=== PATIENT | female | born 1940 | race Caucasian/White ===

== ENCOUNTER → 2017-06-26 | Day surgery (SDC) | payer MEDICARE, OTHER ==
[~2017-06-26] VITALS: Ht 154.9 cm; Wt 55.8 kg
[~2017-06-26] MED LIST: ACETAMINOPHEN 325 MG TAB PO PRN; AMLO1TAB37 PO; AcetaZOLAMIDE 500 MG ER CAP PO ONE; BSS with VANC/TOB/EPI for EYE CASES IR ONE; CYCLOPENTOLATE 2% OPHTH SOLN 2ML BTL OD ONE; FLON1SPR INH; FOLI800T PO; FORT600S SQ; HEALON DUET (HEALON 10MG/ML 0.55ML & HEALON ENDOCOAT 30MG/ML 0.85ML) As Ordered ONE; KETOROLAC 0.5% OPHTH SOLN OD ONE; LIDOCAINE 1% SDV 5 ML VIAL As Ordered ONE; LIDOCAINE 3.5 % 1ML OPHTH TOPICAL GEL OU ONE; LR 1,000 ML IV ONE; MIDAZOLAM INJ 2 MG/2 ML VIAL (J2250) As Ordered ONE; MOXIFLOXACIN IN BSS 0.25MG/0.25ML INTRACAMERAL INJ (OR EYE ONLY)(J2280) As Ordered ONE; OFLOXACIN 0.3 % (OCUFLOX) OPTH SOL 5ML OD ONE; PHENYLEPHRINE 2.5% OPHTH SOL 2ML OD ONE; POVIDONE-IODINE 5% OPHTH PREP SOL 30ML As Ordered ONE; PRIL20TA2 PO; PROPARACAINE 0.5% OPHTH SOL 15ML OD PRN; SYNT100T PO; TRIAMCINOLONE PRES FR 40 MG/ML 1ML(TRIESENCE)(OR EYE ONLY)(J3300 PER 1MG) As Ordered ONE; TRIMETHOBENZAMIDE 300 MG CAP PO PRN; TROPICAMIDE 1% OPHTH SOLN 2ML OD ONE; VITA1CAP40 PO; ZETI10TA30 PO; fentaNYL 100 MCG/2 ML INJECTION (J3010) As Ordered ONE
[2017-06-26 09:40] VITALS: BP 137/69
== END | disposition home or self-care (01) ==
LOC: M SDC 07:35
PROVIDERS: ATTEND Ophthalmology
DX: H25.9 Unspecified age-related cataract (principal); I10 Essential (primary) hypertension; E78.5 Hyperlipidemia, unspecified; E05.90 Thyrotoxicosis, unspecified without thyrotoxic crisis or storm; E21.3 Hyperparathyroidism, unspecified; K44.9 Diaphragmatic hernia without obstruction or gangrene; K21.9 Gastro-esophageal reflux disease without esophagitis; D64.9 Anemia, unspecified; F17.210 Nicotine dependence, cigarettes, uncomplicated; F41.9 Anxiety disorder, unspecified; Z79.899 Other long term (current) drug therapy
CPT/HCPCS: 66984; J2250; J2280; J3010; J3300; V2632

== ENCOUNTER 2017-07-03 08:46 | Day surgery (SDC) | payer MEDICARE, OTHER ==
[~2017-07-03] VITALS: Ht 154.9 cm; Wt 55.8 kg
[~2017-07-03 08:46] MED LIST changes: -AcetaZOLAMIDE 500 MG ER CAP PO ONE; -CYCLOPENTOLATE 2% OPHTH SOLN 2ML BTL OD ONE; +CYCLOPENTOLATE 2% OPHTH SOLN 2ML BTL OS ONE; -HEALON DUET (HEALON 10MG/ML 0.55ML & HEALON ENDOCOAT 30MG/ML 0.85ML) As Ordered ONE; -KETOROLAC 0.5% OPHTH SOLN OD ONE; -LIDOCAINE 1% SDV 5 ML VIAL As Ordered ONE; -LR 1,000 ML IV ONE; -MOXIFLOXACIN IN BSS 0.25MG/0.25ML INTRACAMERAL INJ (OR EYE ONLY)(J2280) As Ordered ONE; -OFLOXACIN 0.3 % (OCUFLOX) OPTH SOL 5ML OD ONE; +OFLOXACIN 0.3 % (OCUFLOX) OPTH SOL 5ML OS ONE; -PHENYLEPHRINE 2.5% OPHTH SOL 2ML OD ONE; +PHENYLEPHRINE 2.5% OPHTH SOL 2ML OS ONE; -POVIDONE-IODINE 5% OPHTH PREP SOL 30ML As Ordered ONE; -PROPARACAINE 0.5% OPHTH SOL 15ML OD PRN; +PROPARACAINE 0.5% OPHTH SOL 15ML OS PRN; -TRIAMCINOLONE PRES FR 40 MG/ML 1ML(TRIESENCE)(OR EYE ONLY)(J3300 PER 1MG) As Ordered ONE; -TRIMETHOBENZAMIDE 300 MG CAP PO PRN; -TROPICAMIDE 1% OPHTH SOLN 2ML OD ONE; +TROPICAMIDE 1% OPHTH SOLN 2ML OS ONE
[2017-07-03] MEDS ORDERED: LR 1,000 ML IV SCH (09:00)
[2017-07-03] MEDS ORDERED: TROPICAMIDE 1% OPHTH SOLN 2ML As Ordered ONE (09:04)
[2017-07-03] MEDS ORDERED: OFLOXACIN 0.3 % (OCUFLOX) OPTH SOL 5ML As Ordered ONE (09:04)
[2017-07-03] MEDS ORDERED: CYCLOPENTOLATE 2% OPHTH SOLN 2ML BTL As Ordered ONE (09:04)
[2017-07-03] MEDS ORDERED: PHENYLEPHRINE 2.5% OPHTH SOL 2ML As Ordered ONE (09:04)
[2017-07-03] MEDS ORDERED: LIDOCAINE 1% SDV 5 ML VIAL As Ordered ONE (09:11)
[2017-07-03] MEDS ORDERED: HEALON DUET (HEALON 10MG/ML 0.55ML & HEALON ENDOCOAT 30MG/ML 0.85ML) As Ordered ONE (09:11)
[2017-07-03] MEDS ORDERED: TRIAMCINOLONE PRES FR 40 MG/ML 1ML(TRIESENCE)(OR EYE ONLY)(J3300 PER 1MG) As Ordered ONE (09:11)
[2017-07-03] MEDS ORDERED: POVIDONE-IODINE 5% OPHTH PREP SOL 30ML As Ordered ONE (09:11)
[2017-07-03] MEDS ORDERED: MOXIFLOXACIN IN BSS 0.25MG/0.25ML INTRACAMERAL INJ (OR EYE ONLY)(J2280) As Ordered ONE (09:11)
[2017-07-03] MEDS ORDERED: TRIMETHOBENZAMIDE 300 MG CAP PO PRN (10:15)
[2017-07-03] MEDS ORDERED: KETOROLAC 0.5% OPHTH SOLN OS ONE (10:15)
[2017-07-03] MEDS ORDERED: AcetaZOLAMIDE 500 MG ER CAP PO ONE (10:15)
[2017-07-03 10:20] VITALS: BP 144/66
== END 2017-07-03 10:38 | disposition home or self-care (01) ==
LOC: M SDC 08:46
PROVIDERS: ATTEND Ophthalmology
DX: H25.9 Unspecified age-related cataract (principal); I10 Essential (primary) hypertension; E78.5 Hyperlipidemia, unspecified; E05.90 Thyrotoxicosis, unspecified without thyrotoxic crisis or storm; F41.9 Anxiety disorder, unspecified; D64.9 Anemia, unspecified; F17.210 Nicotine dependence, cigarettes, uncomplicated; K21.9 Gastro-esophageal reflux disease without esophagitis; K44.9 Diaphragmatic hernia without obstruction or gangrene; J44.9 Chronic obstructive pulmonary disease, unspecified
CPT/HCPCS: 66984; J2250; J2280; J3010; J3300; V2632

== ENCOUNTER 2018-10-14 16:14 | Inpatient (IN) | payer MEDICARE, OTHER ==
[~2018-10-14] VITALS: Ht 152.4 cm; Wt 58.8 kg
[~2018-10-14 16:14] MED LIST changes: -ACETAMINOPHEN 325 MG TAB PO PRN; -BSS with VANC/TOB/EPI for EYE CASES IR ONE; -CYCLOPENTOLATE 2% OPHTH SOLN 2ML BTL OS ONE; -LIDOCAINE 3.5 % 1ML OPHTH TOPICAL GEL OU ONE; -MIDAZOLAM INJ 2 MG/2 ML VIAL (J2250) As Ordered ONE; -OFLOXACIN 0.3 % (OCUFLOX) OPTH SOL 5ML OS ONE; -PHENYLEPHRINE 2.5% OPHTH SOL 2ML OS ONE; -PROPARACAINE 0.5% OPHTH SOL 15ML OS PRN; -TROPICAMIDE 1% OPHTH SOLN 2ML OS ONE; -VITA1CAP40 PO; +VITA50005 PO; -fentaNYL 100 MCG/2 ML INJECTION (J3010) As Ordered ONE
[2018-10-14 16:55] LABS: BASO % 0.1 % (0.0-1.0); HEMATOCRIT 31.9 % (36.0-47.0); HEMOGLOBIN 10.1 g/dl (12.0-15.5); LYMPH # 0.3 10^3/uL (1.5-4.5); LYMPH % 2.7 % (24.0-44.0); MEAN CORPUSCULAR HEMOGLOBIN 28.9 pg (27.0-33.0); MEAN CORPUSCULAR HGB CONC 31.7 g/dl (32.0-36.5); MEAN CORPUSCULAR VOLUME 91.4 fl (80.0-96.0); MONO # 0.8 10^3/uL (0.0-0.8); MONO % 7.1 % (0.0-5.0); NEUTROPHILS # 10.1 10^3/uL (1.8-7.7); PLATELET COUNT, AUTOMATED 265 10^3/uL (150-450); RED BLOOD COUNT 3.49 10^6/uL (4.00-5.40); WHITE BLOOD COUNT 11.3 10^3/uL (4.0-10.0)
[2018-10-14] MEDS: METOPROLOL 5 MG/5 ML VIAL IV SCH ×4 (17:06→17:56)
--- NOTE | 2018-10-14 17:22 | REP ---
Portable chest, 04:28 p.m., single AP view, the patient upright: Comparison is 06/26/2013. There is a large opacity inferiorly in the right hemithorax compatible with a pleural effusion as an interval change. The right upper lobe is clear. The left lung is clear. Right cardiac margin is obscured, cardiac size cannot be assessed. There is scoliosis convex right at the thoracolumbar junction, unchanged. Impression: Large right pleural effusion. Electronically Signed by Victor M Parks MD 10/14/2018 05:14 P
[2018-10-14 17:23] LABS: INFLUENZA A AMPLIFICATION NEGATIVE (NEGATIVE); INFLUENZA B AMPLIFICATION NEGATIVE (NEGATIVE)
[2018-10-14 17:31] LABS: INR 1.21; PROTHROMBIN TIME 15.5 SECONDS (12.1-14.4)
[2018-10-14 17:32] LABS: ALBUMIN 2.7 GM/DL (3.2-5.2); BILIRUBIN,DIRECT 0.6 MG/DL (0.0-0.2); CREATININE FOR GFR 2.69 MG/DL (0.55-1.30); FREE T4 1.2 NG/DL (0.76-1.46); GLOMERULAR FILTRATION RATE 18.2 (>39); MAGNESIUM LEVEL 1.9 MG/DL (1.8-2.4); MB/CK RELATIVE INDEX 5.96 (< OR =4); PHOSPHORUS LEVEL 3.9 MG/DL (2.5-4.9); POTASSIUM SERUM 5.2 MEQ/L (3.5-5.1); THYROID STIMULATING HORMONE 8.44 uIU/ML (0.358-3.740); TOTAL PROTEIN 6.4 GM/DL (6.4-8.2); TROPONIN I 0.02 NG/ML (< 0.10)
[2018-10-14] MEDS ORDERED: NS 500 ML IV ONE (18:00)
[2018-10-14] MEDS ORDERED: ALLO100T PO (18:10)
[2018-10-14] MEDS ORDERED: PROL60SO SC (18:10)
[2018-10-14] MEDS ORDERED: CETI10TA PO (18:10)
[2018-10-14] MEDS ORDERED: AMLO5CAP2 PO (18:10)
[2018-10-14] MEDS ORDERED: SYNT88TA2 PO (18:10)
[2018-10-14] MEDS ORDERED: DIGOXIN INJ 0.5 MG/2 ML AMP (J1160) IV STA (18:18)
[2018-10-14] MEDS: NS 1,000 ML IV SCH (19:17)
[2018-10-14] MEDS ORDERED: MORPHINE 4 MG/ML 1ML VIAL/SYRINGE (J2270) IV PRN (19:30)
--- NOTE | 2018-10-14 20:44 | REP ---
Clinical: Shortness of breath. Technique: Axial noncontrast images from the thoracic inlet to the upper abdomen with coronal and sagittal re-formations. Comparison: None. Findings: Large right pleural effusion along with consolidation/partial collapse to the right lower lobe as well as areas of consolidation and atelectasis involving the right middle lobe and to a lesser extent the right upper lobe. Mild left basilar atelectasis noted as well. A few small scattered areas of subpleural density are also identified within the right upper lobe (image 49) and lingula (image 53). Underlying chronic interstitial changes are noted. Mediastinum demonstrates atherosclerotic changes to the thoracic aorta and coronary arteries without aortic aneurysm. Cardiomegaly is suggested without pericardial effusion. Surrounding musculoskeletal structures demonstrate age-related changes without focal osseous abnormality. Limited upper abdomen demonstrates infiltration through the visualized mesentery and retroperitoneum as well as suspected enlargement to the left adrenal gland measuring approximately 2.2 cm. Impression: 1. Multifocal right-sided infiltrates and large right pleural effusion. Differential diagnosis includes asymmetric CHF/pulmonary edema, multifocal pneumonia and malignancy including bronchogenic carcinoma. 2. Cardiomegaly with atherosclerotic changes to the thoracic aorta and coronary arteries. 3. Infiltration to the visualized upper abdominal mesentery and retroperitoneum as well as possible enlargement to the left adrenal gland poorly evaluated. Electronically Signed by Helder Osborne MD 10/14/2018 08:35 P
--- NOTE | 2018-10-14 21:03 | HPE ---
DATE OF ADMISSION: 10/14/2018 A 78-year-old female with a past medical history of hyperlipidemia, hypertension, chronic active tobacco abuse, who presents to the emergency room with cough with productive yellow sputum for the last 3 days. She has not been eating or drinking well either during this time, and she has some minor pleuritic chest pain on her right side. When she came to the emergency room (ER), she was found to be in new onset atrial fibrillation with rapid ventricular response in the 150s, was given Lopressor 5 mg IV push times two, which brought her blood pressure to systolic 75, and her heart rate only down to 140. Then, 0.5 mg of digoxin was given, which brought her heart rate down to the 120s and her blood pressure now is systolic 100. Patient does not complain of any unintentional weight loss. She claims she quit smoking approximately 3 months ago, but before that, she smoked approximately five cigarettes a day for decades. Upon further history taking, the patient did explain that she had a subjective feeling of aches and chills but no fever, and she has no chest pain or palpitations. Chest x-ray was done in the ER, was found a large right pleural effusion and thus will be admitted for further management. PAST MEDICAL HISTORY: Hypertension. Hyperlipidemia. Hypothyroidism. Gastroesophageal reflux disease (GERD). She is also a chronic active tobacco abuser. ALLERGIES: No known drug allergies. FAMILY HISTORY: Noncontributory. SOCIAL HISTORY: The patient smoked approximately 5 cigarettes a day for many decades, quit approximately 3 months ago. Denies any alcohol or illicit drugs. MEDICATIONS: She takes at home are as follows: - allopurinol 100 mg orally daily - amlodipine/benazepril 5/20 one cap orally daily - cetirizine 10 mg orally at bedtime - mg orally daily - folic acid 800 mcg orally daily - Synthroid 88 mcg orally daily - omeprazole 20 mg orally daily - Prolia 60 mg subcu every 6 months REVIEW OF SYSTEMS: Negative all ten major systems except what is mentioned in the history of the present illness. Vital Signs: Blood pressure is 94/67, heart rate is 125, irregular, respiratory rate 20, temperature is 97.8, oxygen saturation is 98% on 6 liters nasal cannula. Head is atraumatic, normocephalic. Neck supple. No jugular venous distention (JVD). Lungs have no breath sounds noted in the right lung. Minimal breath sounds in the left. S1, S2 audible, No murmurs appreciated. Abdomen: Soft, positive bowel sounds. No pedal edema. Skin: Intact. Neurologic Examination: Patient awake, alert, oriented times three. LABORATORY: WBC 11.3, hemoglobin 10.1, hematocrit 31.9, platelets are 265,000. Sodium 132, potassium 5.2, chloride 103, CO2 14, BUN 72, creatinine 2.69, baseline is 1, glucose 105, lactic acid 2.4, calcium 8, magnesium 1.9, troponin first set us 0.0, lipase 318, TSH is 8.440. Influenza tests, both A and B, are negative. IMPRESSION: 1. Right pleural effusion. 2. Clinical pneumonia. 3. Acute kidney injury. PLAN: The patient is to be admitted to the progressive care unit (PCU). I did speak with Dr. Haq who will be on board for cardiology. Will do an echocardiogram in the morning.128 he said is acceptable at this time. In a few hours, if the patient goes above 120, will give her 0.25 oral digoxin and will also get a second troponin, rule out acute coronary syndrome. At this time, though the patient's DEISY vascular 2 score is 3, at high risk, we are going to hold off on anticoagulation until the patient gets her thoracentesis in the morning. As far as the acute kidney injury (SUZI) is concerned, it is likely secondary to prerenal azotemia. I am going to start the patient on normal saline at 100 mL an hour, and I am going to hold the benazepril. I am going to start the patient on IV Zosyn for her clinical pneumonia. Malignancy cannot be ruled out at this time. Will continue all of her other preadmission medications and follow her care in the PCU.
[2018-10-14 21:05] VITALS: BP 100/72
[2018-10-14] MEDS: PIPERACILLIN/TAZOBACTAM SOD 2.25 GM in D5W MINI-BAG PLUS 50 ML IV SCH (21:46)
[2018-10-15] VITALS (14 sets, daily range): BP systolic 98–128; BP diastolic 50–74
[2018-10-15] MEDS ORDERED: DIGOXIN 0.25 MG TAB PO ONE (00:30)
[2018-10-15] MEDS ORDERED: METOPROLOL TART 25 MG TABLET PO SCH (03:00)
[2018-10-15] MEDS: PIPERACILLIN/TAZOBACTAM SOD 2.25 GM in D5W MINI-BAG PLUS 50 ML IV SCH ×3 (04:54→20:16)
[2018-10-15] MEDS: NS 1,000 ML IV SCH (04:55)
[2018-10-15] MEDS: LEVOTHYROXINE 100MCG TABLET (0.1MG) PO SCH (04:56)
[2018-10-15 05:41] LABS: BASO % 0.2 % (0.0-1.0); EOS % 0.2 % (0.0-3.0); HEMATOCRIT 32.7 % (36.0-47.0); LYMPH # 0.4 10^3/uL (1.5-4.5); LYMPH % 3.4 % (24.0-44.0); MEAN CORPUSCULAR HEMOGLOBIN 28.4 pg (27.0-33.0); MEAN CORPUSCULAR HGB CONC 30.6 g/dl (32.0-36.5); MEAN CORPUSCULAR VOLUME 92.9 fl (80.0-96.0); MONO # 1.1 10^3/uL (0.0-0.8); MONO % 8.3 % (0.0-5.0); NEUTROPHILS # 11.2 10^3/uL (1.8-7.7); NEUTROPHILS % 86.4 % (36.0-66.0); PLATELET COUNT, AUTOMATED 260 10^3/uL (150-450); RED BLOOD COUNT 3.52 10^6/uL (4.00-5.40)
[2018-10-15 05:50] LABS: CALCIUM LEVEL 7.5 MG/DL (8.8-10.2); CREATININE FOR GFR 2.07 MG/DL (0.55-1.30); GLOMERULAR FILTRATION RATE 24.6 (>39); POTASSIUM SERUM 5.1 MEQ/L (3.5-5.1)
[2018-10-15] MEDS ORDERED: DIGOXIN 0.125 MG TAB PO ONE (08:30)
[2018-10-15] MEDS: OMEPRAZOLE 20 MG CAP PO SCH (08:52)
[2018-10-15] MEDS: EZETIMIBE 10 MG TAB (ZETIA) PO SCH (08:52)
[2018-10-15] MEDS ORDERED: amLODIPine 5 MG TAB PO SCH (09:00)
--- NOTE | 2018-10-15 09:05 | CR ---
DATE OF CONSULTATION: 10/15/2018 REFERRING PHYSICIAN: Dr. Calderon INDICATION: Atrial fibrillation, shortness of breath, right pleural effusion. HISTORY OF PRESENT ILLNESS: Mrs. Romero is previously unknown to me. She is a pleasant 78-year-old female who has no past history of cardiac problems. She came to the emergency room yesterday after approximately 3-4 week history of symptoms that started as cough productive of some sputum with also signs of sinusitis and slowly worsening shortness of breath. She also had some minimal chest discomfort on the right side. In the last few days, she also noted some minimal peripheral edema. She did not have any twila anginal symptoms and she did not have any sensation of palpitations. On presentation to the emergency room, she was found to be in atrial fibrillation with rapid ventricular response, she also had new renal failure and large right-sided pleural effusion that was noted on chest x-ray and CT of the chest. She was initially given beta blockers IV, but it led to fairly precipitous drop in her blood pressure and consequently she got IV fluids and digoxin. Throughout the night, her heart rate was mostly tachycardiac. This morning, her heart rate is about 110 to 120 range. At bedside, she tells me she is feeling much better than yesterday, but still very short of breath with minimal activity. Denies any chest pain or sensation of palpitations. Denies any paroxysmal nocturnal dyspnea (PND) and tells me that her dyspnea is not worse when she lays down. PAST MEDICAL HISTORY: 1. Hypertension. 2. Dyslipidemia. 3. Hypothyroidism. 4. Gastroesophageal reflux disease (GERD). SOCIAL HISTORY: The patient is a . She lives with her daughter. She has been a smoker most of her adult life, but has not been smoking since she got sick about a month ago. Very rarely uses any alcohol. FAMILY HISTORY: The patient denies first-degree relatives with coronary artery disease or cardiac problems in general in younger age. ALLERGIES: No allergies. HOME MEDICATIONS: - allopurinol 100 mg a day - amlodipine/benazepril 5/20 once a day - cetirizine 10 mg a day - Zetia 10 mg a day - folic acid 800 mg a day - Synthroid 88 mcg a day - omeprazole 20 mg a day - Prolia every 6 months REVIEW OF SYSTEMS: On the review of systems, she denies any recent nausea or vomiting. She denies any history of bleeding, even though she says that she has hemorrhoids and occasionally had some blood in her stools, but not lately. She denies any significant change in her weight. No night sweats as such. No twila anginal symptoms. No syncope or near-syncope. The rest of review of systems are negative. PHYSICAL EXAMINATION: Mrs. Romero is an elderly female, rather petite. Does not appear to be in any distress at rest Her vital signs reveal blood pressure this morning of 126/72 and heart rate was 124. She is afebrile. Saturation 96% on room air. She is alert, oriented and appropriate. Her jugular venous pulse (JVP) is elevated. I would say only mildly though, not more than about a couple of centimeters above the clavicle. Lungs are relatively clear, completely clear on the left and on the right they are diminished over the bases, but I do not appreciate any wheezing, crackles or rhonchi. Heart exam reveals rather muffled heart sounds. No gallop, murmur or rub is appreciated. She is certainly tachycardiac. Abdomen is soft. I do not appreciate hepatosplenomegaly. No guarding. Bowel sounds are positive. Extremities have about 1+ edema to mid shins bilaterally. Neurologically, she is mostly intact even though she has significant strabismus. LABORATORY-JIMÉNEZ: As of this morning, WBC count 13,000, hemoglobin 10, hematocrit 32 with MCV 93 and platelet count 260,000. In the differential, she has 86% neutrophils, 8% monocytes. Basic metabolic panel: Sodium 136, potassium 5.1, BUN 62, creatinine 2.1 and glucose 92. This actually represents improvement since yesterday when her creatinine was 2.7. Normal liver function tests. Troponin has been negative times two. Albumin is 2.7 and TSH 8.4. Her INR was 1.2. Chest x-ray and CT scan as per history of present illness (HPI). ECG confirms presence of atrial fibrillation with rapid ventricular response, but no decisive ischemic abnormalities. ASSESSMENT/PLAN: Mrs. Romero is a 78-year-old female who presented with approximately 1-month history suggestive of respiratory infection followed by progressive dyspnea. She is found to be in atrial fibrillation with rapid ventricular response (RVR) and has a large right pleural effusion. At this point, the differential diagnosis remains principally between parapneumonic effusion versus congestive heart failure. I do favor the second diagnosis as I would expect her to be a lot sicker if this was truly parapneumonic effusion. We should also consider the possibility of underlying lung cancer, but I think that it is even less likely considering the fairly rapid onset of her symptoms. Nevertheless, I do believe it is appropriate to perform thoracentesis for both therapeutic and diagnostic purposes. As far as the atrial fibrillation is concerned, it probably was triggered by respiratory infection. She is not well rate-controlled, but her blood pressure is little bit better so I think she at this point will tolerate addition of beta blockers. I am going to hold her amlodipine so we can get some space for her blood pressure. She so far received digoxin, but the administered dose so far has been only 0.75 mg, so I am going to give her additional 0.125 mg this morning, but I do not intend to continue the medication afterwards. Will obtain an echocardiogram and after the thoracentesis is performed she needs to be started anticoagulation. Further management depending on her clinical course. I will follow the patient with you. JULI
--- NOTE | 2018-10-15 09:53 | REP ---
Clinical: Acute renal failure. Technique: Real time hamm scale ultrasound examination using curved array transducer. Findings: The kidneys appear atrophic with prominent central sinus fat consistent with chronic medical renal disease. Right kidney measures 9.0 x 4.5 x 4.5 cm with mild hydronephrosis and proximal hydroureter. No obvious nephrolithiasis, cystic or renal mass lesion identified. The left kidney measures 9.1 x 5.1 x 5.5 cm with 1.3 cm simple cortical cyst. No hydronephrosis, nephrolithiasis, or renal mass lesion. A sliver of perinephric fluid is identified and nonspecific. Bladder is collapsed. Incidental right pleural effusion noted. Impression: 1. Chronic medical renal disease. 2. Mild right hydronephrosis. 3. 1.3 cm simple left renal cyst. 4. Incidental right pleural effusion. Electronically Signed by Helder Osborne MD 10/15/2018 09:45 A
--- NOTE | 2018-10-15 10:43 | ECGEPIP ---
Stationary ECG Study [facility] - ED Test Date: 2018-10-14 Pat Name: MAXX SERRATO Department: Room: [place] [address] Gender: F Historical Guide: matty : 1940 Requested By: CLAUDIA Walker Order Number: [id number] Reading MD: Pedro Amaya Measurements Intervals [place] Rate: 159 P: TN: 0 QRS: 60 QRSD: 79 T: 0 QT: 161 QTc: 262 Interpretive Statements ATRIAL FIBRILLATION WITH RAPID VENTRICULAR RESPONSE LOW QRS VOLTAGE NONSPECIFIC ST & T-WAVE ABNORMALITY NO PRIORS FOR COMPARISON Electronically Signed On 10-15-2018 10:43:17 EST by Pedro Amaya
[2018-10-15 12:51] LABS: SOURCE, BODY FLUID PLEURAL
[2018-10-15 12:52] LABS: APPEARANCE, BODY FLUID HAZY (CLEAR); PLEURAL FL COLOR YELLOW (COLORLESS)
[2018-10-15] MEDS: METOPROLOL TART 25 MG TABLET PO SCH ×2 (13:09→17:44)
[2018-10-15 13:11] LABS: LDH, BODY FLUID 169 U/L (NOT ESTABLISHED); SOURCE, BODY FLUID GLUCOSE PLEURAL; SOURCE, BODY FLUID LDH PLEURAL; SOURCE, BODY FLUID TOT PROTEIN PLEURAL
--- NOTE | 2018-10-15 13:23 | IPN ---
DATE: 10/15/2018 Alyx was admitted to the hospitalist service. She presented with atrial fibrillation and right pleural effusion. She came to the emergency room with 3-4 weeks of increasing shortness of breath, sputum production, and lower extremity edema. In the emergency room, she was found to have atrial fibrillation with rapid ventricular response (RVR), acute renal failure, right pleural effusion. She became hypertensive with beta-marvin therapy in the emergency room. Clinically she feels better, less short of breath. Denies palpitations. PAST MEDICAL HISTORY: Hypertension. Hyperlipidemia. Hypothyroidism. Smoking. Gastroesophageal reflux disease (GERD). She also has osteoporosis. PHYSICAL EXAMINATION: 128/62, pulse 120, respiratory rate 18, 96% oxygen saturation. General appearance: Chronically ill appearing, looks older than stated age. HEENT unremarkable. No jugular venous distention (JVD). Heart irregular rate and rhythm, tachycardic at 120. Abdomen is soft, nontender, no masses. Trace peripheral edema. Decreased breath sounds on the right base compared to the left. LABS: White count 13, hemoglobin 10, platelets 260, sodium 136, potassium 5.1, BUN 62, creatinine 2.0, glucose 90. Flu screen was negative. INR was 1.2. Renal ultrasound showed chronic medical renal disease. Mild right hydronephrosis. 1.3 cm simple cyst left kidney. IMPRESSION: 1. Atrial fibrillation with rapid ventricular response. She did not tolerate beta-marvin therapy in the emergency room, she became bradycardic with this. Dr. Haq from cardiology has seen here and intends to manage her with digoxin. Echocardiogram has been ordered. Plan is to start anticoagulation now that her thoracentesis has occurred. Will begin Eliquis 5 mg twice a day, age less than 80 and weight greater than 60 kg. 2. Pleural effusion status post thoracentesis. Appropriate studies have been ordered. 3. Hypothyroidism. TSH was mildly elevated. I am not changing the dose of her medicine. This is best done in the outpatient setting and TSH could be mildly elevated related to her current respiratory illness. 4. Multifocal right sided infiltrates. Blood cultures are pending. Pleural fluid studies are pending. She is on Zosyn, which we will continue. 5. Hyperlipidemia. She is not on a statin. She does not having any allergy and I would assume she would be on a statin rather than Zetia unless she had a good reason not to be. Will defer this decision to her outpatient provider who has her outpatient records and better familiar with why she is not currently on statin therapy.
--- NOTE | 2018-10-15 13:25 | REP ---
CHEST, TWO VIEWS: Two views of the chest are performed and compared to prior portable view of the chest 10/14/2018. There is a decreased amount of right pleural fluid status post right thoracentesis. There is mild residual pleural fluid on the right with mild adjacent right lower lobe patchy opacity. Heart appears slightly enlarged. There is some calcification of the thoracic aorta. The mediastinal silhouette is unchanged. There are degenerative changes of the spine. IMPRESSION: Status post right thoracentesis with no pneumothorax. Mild residual right pleural fluid and basilar patchy opacities. Electronically Signed by Victor M Lane MD 10/16/2018 10:42 A
[2018-10-15] MEDS: APIXABAN 5 MG TAB (ELIQUIS) PO SCH ×2 (13:48→20:16)
[2018-10-15] MEDS: SLF 3 ML SYR IV SCH ×2 (13:48→20:17)
--- NOTE | 2018-10-15 17:18 | REP ---
Clinical: Rule out pneumothorax. Technique: PA and lateral. Comparison: 10/15/2018 at 12:36 pm. Findings: Right lower lobe infiltrate. Small residual right pleural fluid cannot be excluded. No pneumothorax. Mediastinum and cardiac silhouette are within normal limits and stable. Left hemithorax appears relatively clear. Skeletal structures intact. Impression: Right lower lobe infiltrate. No obvious pneumothorax. Electronically Signed by Helder Osborne MD 10/15/2018 05:10 P
[2018-10-15] MEDS ORDERED: SODIUM CHLORIDE 0.9% 1000ML IV ONE (18:15)
[2018-10-15] MEDS ORDERED: AMIODARONE HCL 150 MG in APPROPRIATE DILUENT 1 EA IV STA (21:26)
[2018-10-15] MEDS ORDERED: METOPROLOL TART 25 MG TABLET PO ONE (21:30)
--- NOTE | 2018-10-15 22:35 | ECHO ---
DATE OF PROCEDURE: 10/15/2018 REFERRING PHYSICIAN: Lesia Ly MD PATIENT LOCATION: Room 3213 REASON FOR ECHOCARDIOGRAM: Atrial fibrillation. 2D MEASUREMENTS: IVS: 0.74 cm LV: 4.1 cm LVPW: 0.791 cm LA: 3.1 cm Aorta: 2.8 cm IVC: 2.0 cm DOPPLER MEASUREMENTS: Peak velocity across the aortic valve: 1.1 m/s Peak velocity across the LVOT: 0.74 m/s Mitral E: 0.81 Maximum tricuspid valve velocity: 2.4 m/s 2D COMMENTS: 1. Technically limited study due to poor acoustic window. 2. Normal left ventricular size and wall thickness, and a low normal global left ventricular systolic function. The estimated global left ventricular systolic ejection fraction is 45 to 50%. 2. Normal left atrium. The right atrium and the right ventricle appeared to be normal in limited views. 3. Normal aortic root. 4. Trace pericardial effusion noted, no evidence of cardiac tamponade. 5. Minimally calcified aortic valve with normal leaflet excursion. Mildly calcified mitral annulus with normal anterior mitral valve leaflet motion. Normal tricuspid valve. The pulmonic valve and proximal pulmonary artery branches were not well visualized. 6. The inferior vena cava was mildly enlarged, central venous pressure might be elevated. DOPPLER: It detects mild mitral regurgitation, mild tricuspid regurgitation. The calculated pulmonary artery systolic pressure varies between 30 to 40 mmHg. Assessment of the left ventricular diastolic function was limited in view of the underlying atrial fibrillation. IMPRESSION: 1. Probably mildly depressed global left ventricular systolic function with diffuse global hypokinesis. 2. Aortic valve sclerosis without stenosis or aortic regurgitation. 3. Mitral annulus calcification with mild mitral regurgitation. 4. Mild tricuspid regurgitation with probably mild pulmonary hypertension. 5. Trace pericardial effusion. 6. Patient during the test was in atrial fibrillation at a rate up to 150 beats per minute at times. 7. I would recommend to reassess patient left ventricular ejection fraction (LVEF) at one point, once the ventricular rate is under control. [facility]
[2018-10-16] MEDS: PIPERACILLIN/TAZOBACTAM SOD 2.25 GM in D5W MINI-BAG PLUS 50 ML IV SCH ×3 (03:42→20:12)
[2018-10-16] MEDS: METOPROLOL TART 25 MG TABLET PO SCH ×6 (03:42→23:50)
[2018-10-16 04:00] VITALS: BP 102/59
[2018-10-16 05:07] LABS: BASO % 0.1 % (0.0-1.0); EOS # 0.1 10^3/uL (0.0-0.50); EOS % 0.7 % (0.0-3.0); HEMATOCRIT 32.7 % (36.0-47.0); HEMOGLOBIN 10.2 g/dl (12.0-15.5); LYMPH # 0.4 10^3/uL (1.5-4.5); LYMPH % 4.2 % (24.0-44.0); MEAN CORPUSCULAR HEMOGLOBIN 28.6 pg (27.0-33.0); MEAN CORPUSCULAR HGB CONC 31.2 g/dl (32.0-36.5); MEAN CORPUSCULAR VOLUME 91.6 fl (80.0-96.0); MONO # 0.8 10^3/uL (0.0-0.8); MONO % 7.9 % (0.0-5.0); NEUTROPHILS # 9.1 10^3/uL (1.8-7.7); NEUTROPHILS % 86.3 % (36.0-66.0); PLATELET COUNT, AUTOMATED 253 10^3/uL (150-450); RED BLOOD COUNT 3.57 10^6/uL (4.00-5.40); WHITE BLOOD COUNT 10.5 10^3/uL (4.0-10.0)
[2018-10-16 05:27] LABS: CALCIUM LEVEL 7.3 MG/DL (8.8-10.2); CREATININE FOR GFR 1.5 MG/DL (0.55-1.30); GLOMERULAR FILTRATION RATE 35.7 (>39); POTASSIUM SERUM 4.7 MEQ/L (3.5-5.1)
[2018-10-16] MEDS: SLF 3 ML SYR IV SCH ×3 (06:00→22:08)
[2018-10-16] MEDS: LEVOTHYROXINE 100MCG TABLET (0.1MG) PO SCH (06:29)
[2018-10-16] MEDS ORDERED: DIGOXIN 0.125 MG TAB PO ONE (07:45)
[2018-10-16 08:05] VITALS: BP 98/60
[2018-10-16 08:21] LABS: TOTAL PROTEIN 5.6 GM/DL (6.4-8.2)
[2018-10-16] MEDS: APIXABAN 5 MG TAB (ELIQUIS) PO SCH ×2 (08:44→20:13)
[2018-10-16] MEDS: EZETIMIBE 10 MG TAB (ZETIA) PO SCH (08:44)
[2018-10-16] MEDS: OMEPRAZOLE 20 MG CAP PO SCH (08:44)
[2018-10-16] MEDS ORDERED: METOPROLOL TART 25 MG TABLET PO ONE (08:45)
--- NOTE | 2018-10-16 09:19 | IPN ---
DATE OF VISIT: 10/16/2018 Mrs. Romero had several things done yesterday. She had a renal ultrasound which showed mild hydronephrosis on the right side, but otherwise medical renal disease. She had also thoracentesis. I could not find any documentation as to how much fluid was removed, but the analysis of the fluid is favoring exudate rather than transudate. She feels better after the thoracentesis. She also had an echocardiogram that was a somewhat limited study in view of the underlying tachycardia, but it was felt that her ejection fraction was only mildly reduced. The pulmonary artery pressure was felt to be in the 40s. Today, the patient tells me that she is feeling better, less short of breath, but still short of breath with activity. Vital Signs: Blood pressure, the last documented, was 98/60, but usually in the low 100s. Heart rate is still tachycardiac, sometimes into 150s, but on average probably about 130. She is afebrile. Saturation is 92% on 2 liters of oxygen. Fluid balance yesterday was documented as 1770 positive balance. She made about 1200 mL of urine. Weight this morning is 60 kg and is actually less than yesterday. She is alert, oriented and appropriate. Her jugular venous pulse (JVP) does not appear high. Lungs still sound pretty diminished and the right base has decreased breath sounds, but I do not appreciate any wheezing, crackles or rhonchi. Heart exam reveals irregular tachycardia. Abdomen is soft. There is no edema. Laboratory-kay, her fluid analysis revealed glucose 96, total protein 3.0 and LDH 169. CBC: Hemoglobin 10.2, hematocrit 32.7, platelet count 253,000. Basic metabolic panel: Sodium 139, potassium 4.7, BUN 42, creatinine 1.5 and glucose 102. ASSESSMENT/PLAN: Mrs. Romero is a 78-year-old female who came to the hospital with worsening dyspnea after approximately 3-4 week illness suggestive of respiratory infection. She had a large right-sided pleural effusion and she also had atrial fibrillation with rapid ventricular response (RVR). On top of it, she was found to be in new acute renal failure with elevated creatinine in the 2.5 range. As far as the atrial fibrillation is concerned, we did not make much progress. She continues to be tachycardic, but it is mostly because her beta blockers have been held consistently due to low blood pressure. I gave her an additional dose of digoxin this morning and will reduce the parameters for administration of metoprolol to just 95 mmHg systolic. Hopefully, that will lead to some improvement. In the long run though it may prove to be rather difficult to get her good control. She is anticoagulated with Eliquis. As far as the pleural effusion is concerned, the fluid analysis is favoring exudate based on Light criteria, but it just crosses the threshold for exudate rather marginally. At this point, I would wait recovery of her renal function which hopefully will occur within another day or two and then consider doing CT of the chest with IV contrast to get a better idea. I think we need to be certain that she does not have underlying malignancy or other serious process. As far as the renal function is concerned, she is improving and I am not sure why she has hydronephrosis, but nephrology and possibly urology may need to be involved as well. JULI
--- NOTE | 2018-10-16 10:19 | REP ---
ULTRASOUND-GUIDED RIGHT THORACENTESIS The procedure was performed under the direct supervision of Dr. lane. The risks and benefits of the procedure were explained to the patient and informed consent was obtained. The right pleural effusion was localized using ultrasound guidance. The skin was prepped and draped in a sterile fashion. 1% lidocaine was used as a local anesthetic. An 8-Czech multi side-hole catheter was inserted using trocar technique. 1050 ml of yellow fluid was withdrawn with a sample sent to the lab for analysis. The patient tolerated the procedure well and there were no immediate complications. Reviewed by LILLIAN Bettencourt 10/15/2018 03:02 P Electronically Signed by Victor M Lane MD 10/16/2018 10:09 A
[2018-10-16 12:00] VITALS: BP 94/66
--- NOTE | 2018-10-16 14:28 | IPN ---
DATE: 10/16/2018 Alyx developed pleuritic chest pain yesterday. Chest x-ray showed no pneumothorax. The pain has since resolved. She is having no further problems with it. She was admitted with a large right sided infiltrate, right pleural effusion for which she underwent thoracentesis yesterday. No malignancy was found in the pleural fluid which looks to be exudate though it could be a transudate that has dried out to the point of becoming exudative. Her blood pressures have been borderline limiting the amount of beta marvin and she had been relying on a fair amount of digoxin for rate control. She denies chest pain. She says she feels less shortness of breath and overall feels better. Her echocardiogram is back, left atrium 31 mm ejection fraction of 45-50%. The heart rate was up to 150 beats per minute at times which might have changed the cardiac output and the sugar reevluated again as outpatient. PHYSICAL EXAMINATION: Blood pressure 94/66, pulse 140, respiratory rate 20, Oxygen saturation 91%. GENERAL APPEARANCE: She is resting in bed in no distress. When I examined her her heart rate was close to 100 and no JVD. LUNGS: Deep rhonchi and decreased breath sounds on the right side. HEART: Irregular rate and rhythm, rate of 100-120. ABDOMEN: Soft, nontender and no peripheral edema. LABS: Platelets 250, sodium 139, potassium 4.7, BUN 42, creatinine 1.5, pleural fluid negative for malignancy. Gram stain shows no bacteria. IMPRESSION: 1. Atrial fibrillation, rapid ventricular response. Cardiology is on board. We appreciate their input. She is on Eliquis for thromboembolic prophylaxis. Digoxin and beta marvin for her rate control. 2. Pleural effusion, probably an exudate although could have been transudative that dried out to become an exudate. Cultures are pending. Does not look like an empyema. 3. Hypothyroidism. Continue current dose of Levothyroxine. 4. Slightly depressed ejection fraction echocardiogram, though technically systolic heart failure. This should be repeated as an outpatient as her ejection fraction might be significantly better once she comes under better rate control. 5. Pleuritic chest discomfort. I think it was just pleural reaction from the thoracentesis. There was no evidence of a pneumothorax. 6. Chronic kidney disease stage 3 with acute kidney injury. Creatinine has improved. Followup labs have been ordered. Renal ultrasound showed chronic medical renal disease and some mild right hydronephrosis that I do not think requires intervention at this point.
[2018-10-16 16:00] VITALS: BP 115/65
[2018-10-16 20:00] VITALS: BP 92/68
[2018-10-17 00:13] VITALS: BP 100/76
--- NOTE | 2018-10-17 00:37 | ECGEPIP ---
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 HEART RATE IS NOW SLOWER OTHERWISE NO REMARKABLE CHANGES Electronically Signed On 10-17-2018 0:37:05 EST by Jeff Miranda
[2018-10-17 04:00] VITALS: BP 100/68
[2018-10-17 04:24] LABS: BASO % 0.3 % (0.0-1.0); EOS # 0.1 10^3/uL (0.0-0.50); EOS % 1.5 % (0.0-3.0); HEMATOCRIT 33.7 % (36.0-47.0); HEMOGLOBIN 10.3 g/dl (12.0-15.5); LYMPH # 0.5 10^3/uL (1.5-4.5); MEAN CORPUSCULAR HEMOGLOBIN 28.7 pg (27.0-33.0); MEAN CORPUSCULAR HGB CONC 30.6 g/dl (32.0-36.5); MEAN CORPUSCULAR VOLUME 93.9 fl (80.0-96.0); MONO % 12.6 % (0.0-5.0); NEUTROPHILS # 5.9 10^3/uL (1.8-7.7); NEUTROPHILS % 78.5 % (36.0-66.0); PLATELET COUNT, AUTOMATED 234 10^3/uL (150-450); RED BLOOD COUNT 3.59 10^6/uL (4.00-5.40); WHITE BLOOD COUNT 7.5 10^3/uL (4.0-10.0)
[2018-10-17] MEDS: PIPERACILLIN/TAZOBACTAM SOD 2.25 GM in D5W MINI-BAG PLUS 50 ML IV SCH ×3 (04:29→20:34)
[2018-10-17 05:00] LABS: CALCIUM LEVEL 7.6 MG/DL (8.8-10.2); CREATININE FOR GFR 1.28 MG/DL (0.55-1.30); DIGOXIN LEVEL 2.5 NG/ML (0.5-2.0); GLOMERULAR FILTRATION RATE 42.8 (>39); POTASSIUM SERUM 5.2 MEQ/L (3.5-5.1)
[2018-10-17] MEDS: LEVOTHYROXINE 100MCG TABLET (0.1MG) PO SCH (06:04)
[2018-10-17] MEDS: SLF 3 ML SYR IV SCH ×3 (06:04→21:06)
[2018-10-17] MEDS: METOPROLOL TART 25 MG TABLET PO SCH ×3 (06:04→17:43)
[2018-10-17 09:00] VITALS: BP 92/52
[2018-10-17] MEDS: EZETIMIBE 10 MG TAB (ZETIA) PO SCH (10:00)
[2018-10-17] MEDS: OMEPRAZOLE 20 MG CAP PO SCH (10:00)
[2018-10-17] MEDS: APIXABAN 5 MG TAB (ELIQUIS) PO SCH ×2 (10:00→20:34)
[2018-10-17 12:00] VITALS: BP 100/50
--- NOTE | 2018-10-17 14:28 | IPN ---
DATE: 10/17/2018 Alyx is doing well. She is still having tachycardia from her atrial fibrillation. Digoxin has been limited by her renal disease and beta marvin therapy has been limited by hypotension. She is asymptomatic from this, but frankly has not made much progress in controlling her atrial fibrillation with rapid ventricular response over the last couple of days. Cardiology is consulted. She has been seen by Dr. Haq, his notes are appreciated. PHYSICAL EXAMINATION: 100/50, pulse 130, respiratory rate 18, 99% oxygen saturation. GENERAL APPEARANCE: She is lying in bed in no distress. HEENT: Unremarkable. LUNGS: Clear. HEART: Rapid rate, regular rhythm.. ABDOMEN: Soft, nontender. EXTREMITIES: No peripheral edema. LABORATORIES: Sodium 142, potassium 5.2, BUN 30, creatinine 1.2, glucose 92. Digoxin level is 2.5. White count is 7.5, hemoglobin 10.3, platelets 234. Pleural fluid showed no growth. IMPRESSION: 1. Atrial fibrillation with rapid ventricular response. Cardiology is on board. She is on Eliquis for thromboembolic prophylaxis. Digoxin and beta marvin for rate control. Digoxin dose has been limited by renal function and indeed she has an elevated digoxin level but no signs of toxicity. Beta marvin use has been limited by hypotension. Looking forward to cardiology's thoughts on how best to manage this when they round today. 2. Pleural effusion, probably exudative. I suspect that it is probably transudate that dried out to the point of becoming exudate. Cultures are negative. It is not empyema. 3. Hypothyroidism, stable on current dose of levothyroxine. 4. Decreased ejection fraction on an echocardiogram, but technically still preserved ejection fraction. As noted above, plans are to repeat this as an outpatient when her rate is under better control. 5. Chronic kidney disease, acute renal failure. Creatinine is improved. 6. Right sided infiltrate with pleural effusion, suspected pneumonia. As rate is being slowed, this will come under control. She is currently on Zosyn for this. White count is totally improved. I do think that she is responding to this.
[2018-10-17 16:00] VITALS: BP 140/62
[2018-10-17 20:00] VITALS: BP 104/58
[2018-10-18] VITALS (7 sets, daily range): BP systolic 98–112; BP diastolic 48–82
[2018-10-18] MEDS: METOPROLOL TART 25 MG TABLET PO SCH ×4 (00:44→17:41)
[2018-10-18] MEDS: PIPERACILLIN/TAZOBACTAM SOD 2.25 GM in D5W MINI-BAG PLUS 50 ML IV SCH ×3 (04:29→21:09)
[2018-10-18 05:35] LABS: BASO % 0.3 % (0.0-1.0); EOS # 0.2 10^3/uL (0.0-0.50); EOS % 2.1 % (0.0-3.0); HEMATOCRIT 31.7 % (36.0-47.0); HEMOGLOBIN 9.6 g/dl (12.0-15.5); LYMPH # 0.5 10^3/uL (1.5-4.5); LYMPH % 6.3 % (24.0-44.0); MEAN CORPUSCULAR HEMOGLOBIN 28.4 pg (27.0-33.0); MEAN CORPUSCULAR HGB CONC 30.3 g/dl (32.0-36.5); MEAN CORPUSCULAR VOLUME 93.8 fl (80.0-96.0); MONO # 0.9 10^3/uL (0.0-0.8); MONO % 11.7 % (0.0-5.0); NEUTROPHILS # 5.8 10^3/uL (1.8-7.7); NEUTROPHILS % 78.9 % (36.0-66.0); PLATELET COUNT, AUTOMATED 229 10^3/uL (150-450); RED BLOOD COUNT 3.38 10^6/uL (4.00-5.40); WHITE BLOOD COUNT 7.3 10^3/uL (4.0-10.0)
[2018-10-18] MEDS: LEVOTHYROXINE 100MCG TABLET (0.1MG) PO SCH (05:54)
[2018-10-18] MEDS: SLF 3 ML SYR IV SCH ×3 (05:54→22:28)
[2018-10-18 05:56] LABS: CALCIUM LEVEL 8.2 MG/DL (8.8-10.2); GLOMERULAR FILTRATION RATE 56.9 (>39); POTASSIUM SERUM 4.9 MEQ/L (3.5-5.1)
[2018-10-18] MEDS: EZETIMIBE 10 MG TAB (ZETIA) PO SCH (09:21)
[2018-10-18] MEDS: OMEPRAZOLE 20 MG CAP PO SCH (09:21)
[2018-10-18] MEDS: APIXABAN 5 MG TAB (ELIQUIS) PO SCH ×2 (09:21→21:09)
[2018-10-18] MEDS ORDERED: DIGOXIN INJ 0.5 MG/2 ML AMP (J1160) IV STA (10:30)
--- NOTE | 2018-10-18 11:18 | IPN ---
DATE: 10/18/2018 Alyx is seen in progressive care unit (PCU). She has atrial fibrillation. Her rate is still not controlled. It has been as high as 160. Blood pressures have limited pushing her beta marvin dose. She denies cough, wheeze or hemoptysis. PHYSICAL EXAMINATION: Blood pressure 98/64, pulse 115. General Appearance: She is resting comfortably in bed. HEENT: Unremarkable. LUNGS: Right-sided rhonchi and wheezes. Dull right base. HEART: Regular rate and rhythm right around 100-120 at rest. ABDOMEN: Soft, nontender. No peripheral edema. LABS: Electrolytes are unremarkable. Potassium 4.9, creatinine is down to 1.0. Hemoglobin 9.6. IMPRESSION: 1. Atrial fibrillation with rapid ventricular response: Her hypotension has limited the dose of her beta marvin. Will restart a low dose of digoxin and give her 0.25 mg IV stat and 0.25 mg orally daily. Recheck a digoxin level tomorrow morning. Her digoxin level is high without clinical toxicity yesterday and she did not receive any digoxin for the last 48 hours. 2. Right-sided infiltrate with pleural effusions suspected pneumonia. She is on Zosyn, white count has improved. She does seem to be responding. 3. Pleural effusion status post pleurocentesis: Cultures are negative on this. 4. Chronic kidney disease with acute renal failure: Renal function has returned to baseline and this is now normalized. 5. Decreased ejection fraction on echocardiogram: Technically preserved ejection fraction. She should have an echo repeated as an outpatient.
[2018-10-18] MEDS ORDERED: DIGOXIN 0.25 MG TAB PO SCH (12:00)
--- NOTE | 2018-10-18 21:16 | IPN ---
DATE: 10/18/2018 Mrs. Alyx Romero was seen earlier this morning. She was supine in bed in no acute distress at rest. She was initially seen by Dr. Haq on 10/15/2018 because of atrial fibrillation with a rapid ventricular rate. She also was diagnosed with a right lung infiltrate associated with right pleural effusion. It has been difficult to control her atrial fibrillation, because her blood pressure has been running low. Yesterday, she had right thoracentesis, and about 1 liter of fluid was drained that seemed to be an exudate. When I saw her earlier today, she was comfortable in bed, and she denies any chest pain. There are no palpitations. There is no orthopnea. She has no pedal edema. There is no report of bleeding. There is no report of vomiting, diarrhea, melena, or hematemesis. She had received an extra dose of digoxin earlier today, and case was discussed with her attending. PHYSICAL EXAMINATION: Patient is alert and oriented in no acute distress at rest. Her vital signs when I saw her revealed a blood pressure of 112/82 with a pulse that varied between 100-120, respirations 18, and her maximum temperature is 98.5 degrees Fahrenheit with an oxygen saturation of 93% on 1 liter nasal cannula. She has a positive fluid balance of 939 mL. Examination of the head: Atraumatic. Neck is supple without carotid bruits. The lungs did not reveal any wheezing. The heart examination revealed irregular heart sounds without gallops. The point of maximal impulse (PMI) is slightly displaced inferiorly and laterally. There is no rub. Abdomen is unremarkable. Extremities reveal no pedal edema. Neurological examination seems to be negative for any focal deficit. LABORATORY DATA: CBC done today revealed a WBC of 7.3, hemoglobin 9.6, hematocrit 31.7, and platelets 229,000. BMP revealed a sodium of 140, potassium 4.9, chloride 109, CO2 of 24, BUN 21, creatinine 1.0, GFR 56.9, and fasting glucose 102 with a calcium of 8.2. Serum digoxin yesterday was 2.5. Repeat chest x-ray after her thoracentesis revealed no pneumothorax, a right lower lobe infiltrate, and only small residual right pleural effusion. Telemetry was reviewed and revealed atrial fibrillation with uncontrolled ventricular rate. IMPRESSION: 1. Atrial fibrillation, persistent and uncontrolled. This, however, has improved. She received a dose of serum digoxin earlier today, and she will be monitored for now. Her serum digoxin yesterday was about 2.1. She is also on a short-acting beta marvin with metoprolol tartrate, and lately she has been receiving it. I am expecting after her thoracentesis that her atrial fibrillation will be better. I will review the case again later today, and further recommendation will be given. In the meantime, we will continue with the digoxin and the beta marvin. She has a pending serum digoxin level for 10/19/2018, and it will be reviewed. She is on apixaban for prevention of thromboembolic events, and there is no report of bleeding. 2. Right lower lobe infiltrate and right pleural effusion. This is being addressed, and she seems improving. Currently on intravenous (IV) antibiotics. 3. Left ventricular systolic dysfunction with a mildly depressed left ventricular ejection fraction (LVEF) by echocardiogram, but she appears to be well compensated. Once she is more stable and prior to her discharge, we can start her on a small dose of ramipril. 4. History of hyperlipidemia. 5. History of hypothyroidism. 6. History of arthritis/gout. It was a pleasure to participate in the care of . Alyx Romero for her underlying cardiac condition. I will continue to monitor her along with you while in the hospital. JLUI
[2018-10-19] VITALS (7 sets, daily range): BP systolic 98–129; BP diastolic 62–72
[2018-10-19] MEDS: METOPROLOL TART 25 MG TABLET PO SCH ×2 (00:19→05:42)
[2018-10-19] MEDS: PIPERACILLIN/TAZOBACTAM SOD 2.25 GM in D5W MINI-BAG PLUS 50 ML IV SCH ×3 (04:42→20:42)
[2018-10-19 05:27] LABS: BASO % 0.5 % (0.0-1.0); EOS # 0.2 10^3/uL (0.0-0.50); EOS % 2.3 % (0.0-3.0); HEMATOCRIT 31.7 % (36.0-47.0); HEMOGLOBIN 9.5 g/dl (12.0-15.5); LYMPH # 0.5 10^3/uL (1.5-4.5); LYMPH % 6.9 % (24.0-44.0); MEAN CORPUSCULAR HEMOGLOBIN 27.7 pg (27.0-33.0); MEAN CORPUSCULAR VOLUME 92.4 fl (80.0-96.0); MONO # 0.8 10^3/uL (0.0-0.8); MONO % 10.9 % (0.0-5.0); NEUTROPHILS # 5.9 10^3/uL (1.8-7.7); NEUTROPHILS % 78.5 % (36.0-66.0); PLATELET COUNT, AUTOMATED 245 10^3/uL (150-450); RED BLOOD COUNT 3.43 10^6/uL (4.00-5.40); WHITE BLOOD COUNT 7.5 10^3/uL (4.0-10.0)
[2018-10-19] MEDS: LEVOTHYROXINE 100MCG TABLET (0.1MG) PO SCH (05:42)
[2018-10-19] MEDS: SLF 3 ML SYR IV SCH ×3 (05:42→21:12)
[2018-10-19 05:54] LABS: BLOOD UREA NITROGEN 14 MG/DL (7-18); CALCIUM LEVEL 8.1 MG/DL (8.8-10.2); CARBON DIOXIDE LEVEL 26 MEQ/L (21-32); CHLORIDE LEVEL 107 MEQ/L (98-107); CREATININE FOR GFR 0.94 MG/DL (0.55-1.30); DIGOXIN LEVEL 2.8 NG/ML (0.5-2.0); GLOMERULAR FILTRATION RATE > 60.0 (>39); GLUCOSE, FASTING 97 MG/DL (70-100); POTASSIUM SERUM 5.1 MEQ/L (3.5-5.1); SODIUM LEVEL 139 MEQ/L (136-145)
[2018-10-19] MEDS: APIXABAN 5 MG TAB (ELIQUIS) PO SCH ×2 (09:48→20:42)
[2018-10-19] MEDS: EZETIMIBE 10 MG TAB (ZETIA) PO SCH (09:48)
[2018-10-19] MEDS: OMEPRAZOLE 20 MG CAP PO SCH (09:48)
[2018-10-19] MEDS: METOPROLOL TART 12.5 MG PER 1/2 TAB PO SCH ×2 (12:41→17:25)
--- NOTE | 2018-10-19 20:53 | IPN ---
DATE: 10/19/2018 Alyx is seen in progressive care unit (PCU). We are in a tough spot with Alyx. Her systolic pressures are in the 90s, limiting beta marvin, calcium channel marvin for atrial fibrillation. Her heart rate has been as high as 130s to 140s and even a small dose of digoxin lead to high digoxin levels (no clinical digoxin toxicity). PHYSICAL EXAMINATION: Currently blood pressure is 129/72, which is the best blood pressure she has had, a few hours earlier it was 98/65. Heart rate is generally in the 130 range. Occasionally recorded as 89, but I think that this is from and it is just missing the atrial fibrillation beats, I do not think that her heart rate has ever been down to 89 today. GENERAL APPEARANCE: She is resting comfortably. LUNGS: Few rhonchi on the right side with better air movement each day. HEART: Regular rate and rhythm. Tachycardic at 130. ABDOMEN: Soft, nontender. No masses. EXTREMITIES: No peripheral edema. LABORATORIES: White count is 7.9, hemoglobin 9.5, platelets 245. Sodium 139, potassium 5.1, BUN 14, creatinine 0.9, glucose 77. IMPRESSION: 1. Atrial fibrillation, complicated case. We cannot increase the dose of beta marvin or calcium channel marvin due to the systolic pressure generally being in the 90s. Her digoxin level is 2.8, so that has to be held as well. Case was discussed with Dr. Miranda and I will ask him to manage the heart rate problems. 2. Right sided infiltrate with pleural effusions, suspected pneumonia. She is on Zosyn and seems to be responding. We probably could put her on oral antibiotic tomorrow. 3. Chronic kidney disease with acute renal failure. Renal failure is back to baseline.
--- NOTE | 2018-10-19 21:50 | IPN ---
DATE: 10/19/2018 Ms. Alyx Romero was seen early today. She was supine in bed in no acute distress at rest and her daughter was at bedside. She denies any chest pain, palpitations and has no orthopnea or paroxysmal nocturnal dyspnea (PND). She does have a cough, but no hemoptysis. There is no report of abdominal pain, diarrhea, melena or hematemesis. There is no focal manifestation. She was initially admitted with a right lower lobe pneumonia and pleural effusion. She had right thoracentesis about two days ago and 1 liter of fluid was drained. She also has been having atrial fibrillation with a rapid ventricular rate, on digoxin and metoprolol tartrate. PHYSICAL EXAMINATION: Patient is alert and awake, in no acute distress at rest and very pleasant. VITAL SIGNS: Blood pressure 129/72 and earlier today when I saw her, it was reported to be 99/64, with a pulse of 97, respirations 18, and a maximum temperature of 99.6 degrees Fahrenheit, with an oxygen saturation of 91-94% on 1 liter nasal cannula. She has a positive fluid balance of 500 mL for 10/18/2018. EXAMINATION OF THE HEAD: Atraumatic. NECK: Supple. No carotid bruits and no jugular venous distention (JVD) appreciated. LUNGS: Do not reveal any wheezing. There is decreased breath sounds at the right base. HEART EXAMINATION: Revealed an irregular heart sounds without gallops. The point of maximum impulse (PMI) is slightly displaced inferiorly. There is no rub. ABDOMEN: Soft. EXTREMITIES: No pedal edema. NEUROLOGICAL EXAMINATION: Grossly negative for focal deficits. LABORATORY DATA: Complete blood count (CBC) done today reveals a WBC of 7.5, hemoglobin 9.5, hematocrit 31.7 and platelets 245,000. Basic metabolic panel (BMP) reveals a sodium of 139, potassium 5.1, chloride 107, CO2 26, BUN 14, creatinine 0.94, GFR more than 60, fasting glucose 97, calcium 8.1. Serum digoxin today is 2.8. Telemetry was reviewed and overall, the atrial fibrillation rate seems to have improved significantly. IMPRESSION: 1. Atrial fibrillation, persistent with uncontrolled ventricular rate. Her ventricular rate, however, seems to have improved, particularly at rest, but can go up to 120-130 beats per minute with activities. While resting, it beats between 80-100 when I was on the floor. Her medications were reviewed and I will continue the same. The digoxin is on hold because of the elevated serum digoxin level. I am concerned that she still has some low-grade fever, but she is being monitored on antibiotics. She is on Eliquis for prevention of thromboembolic events. No bleeding has been reported. Overall, I will continue current management, rate control. She seems to be improving. 2. Right lower lobe pneumonia and right-sided pleural effusion. Status post right thoracentesis and about 1 liter of pleural fluid was removed. 3. Hypothyroidism. On supplement. 4. History of hyperlipidemia. On a statin. 5. Left ventricular systolic dysfunction with a mildly depressed left ventricular ejection fraction (LVEF) by echocardiogram. She happens to be well compensated. Will continue current management. When she is more stable and if her blood pressure allows that, she can be started on a small dose of ramipril. At one point, and this can be done as outpatient, we shall reassess her LVEF. When she had the echocardiogram, her heart rate was about 130-150 beats per minute. MTDD
[2018-10-20] MEDS: METOPROLOL TART 12.5 MG PER 1/2 TAB PO SCH ×4 (00:12→17:55)
[2018-10-20 04:00] VITALS: BP 108/62
[2018-10-20] MEDS: PIPERACILLIN/TAZOBACTAM SOD 2.25 GM in D5W MINI-BAG PLUS 50 ML IV SCH ×3 (04:18→20:28)
[2018-10-20 05:43] LABS: BASO % 0.6 % (0.0-1.0); EOS # 0.2 10^3/uL (0.0-0.50); EOS % 2.3 % (0.0-3.0); HEMATOCRIT 32.1 % (36.0-47.0); HEMOGLOBIN 9.5 g/dl (12.0-15.5); LYMPH # 0.5 10^3/uL (1.5-4.5); MEAN CORPUSCULAR HGB CONC 29.6 g/dl (32.0-36.5); MEAN CORPUSCULAR VOLUME 94.7 fl (80.0-96.0); MONO # 0.7 10^3/uL (0.0-0.8); MONO % 10.8 % (0.0-5.0); NEUTROPHILS # 5.4 10^3/uL (1.8-7.7); NEUTROPHILS % 78.6 % (36.0-66.0); PLATELET COUNT, AUTOMATED 241 10^3/uL (150-450); RED BLOOD COUNT 3.39 10^6/uL (4.00-5.40); WHITE BLOOD COUNT 6.8 10^3/uL (4.0-10.0)
[2018-10-20] MEDS: LEVOTHYROXINE 100MCG TABLET (0.1MG) PO SCH (05:51)
[2018-10-20] MEDS: SLF 3 ML SYR IV SCH ×3 (05:51→21:08)
[2018-10-20 06:27] LABS: CALCIUM LEVEL 8.2 MG/DL (8.8-10.2); CREATININE FOR GFR 0.96 MG/DL (0.55-1.30); DIGOXIN LEVEL 1.9 NG/ML (0.5-2.0); GLOMERULAR FILTRATION RATE 59.7 (>39)
[2018-10-20 08:00] VITALS: BP 120/80
[2018-10-20] MEDS: AMIODARONE 200 MG TAB (PACERONE) PO SCH (09:38)
[2018-10-20] MEDS: OMEPRAZOLE 20 MG CAP PO SCH (09:38)
[2018-10-20] MEDS: APIXABAN 5 MG TAB (ELIQUIS) PO SCH ×2 (09:38→20:28)
[2018-10-20] MEDS: EZETIMIBE 10 MG TAB (ZETIA) PO SCH (09:38)
--- NOTE | 2018-10-20 10:05 | IPN ---
DATE: 10/20/2018 Mrs. Romero tells me that she is still feeling very short of breath even with minimal activity. Denies any chest pain or sensation of palpitations. Her heart rate still is imperfectly controlled, even though she has some heart rate in 80s and 90s most of the time it is much higher, on average probably around 110. Vital signs this Morning: Blood pressure 102/60. Heart rate was documented 130, it was about 100 when I saw her. Saturation is 90% on 1 liter of oxygen. Fluid balance yesterday was documented slightly positive. Weight is 60.9 kg, which is not appreciably changed since admission. She is alert and oriented appropriate. 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 Lungs have very diminished breath sounds on both sides. I do not appreciate any wheezing or crackles, but air movement is poor. Heart exam with irregularly irregular rhythm. No gallop. Abdomen is soft. No peripheral edema. Neurologically she is intact. Laboratory-kay, normal basic metabolic panel. CBC: Hemoglobin 9.0, hematocrit 32, platelet count 241,000. Digoxin level today was 1.9. ASSESSMENT/PLAN: Mrs. Romero is a 78-year-old female who came in with dyspnea and was found to have a fairly sizable right pleural effusion. There was also atrial fibrillation with rapid ventricular response (RVR). As far as the atrial fibrillation is concerned, she is still not well rate-controlled. The management is complicated by blood pressure that is running low and consequently her beta blockers are frequently held. In view of this finding, I am going to give her low-dose amiodarone. That is unlikely to convert her to sinus rhythm in the near future and hopefully it will start helping us with rate-control gradually. She has been anticoagulated since admission. The second issue is that of dyspnea and etiology of pleural effusion. The analysis of the fluid is suggestive of exudative process. I am concerned that her condition really has not improved. I would suggest that we obtain a CT of the chest with IV contrast for better current characterization. Her renal function has recovered and she should be able to tolerate it.
--- NOTE | 2018-10-20 10:59 | IPN ---
DATE: 10/20/2018 Alyx is seen in progressive care unit (PCU). She continues to have problems with control of her atrial fibrillation. In general, her heart rate is down. It is averaging in the 90s to 100s, but still goes up to 130 with minimal exertion. As noted yesterday, her soft blood pressures have been limiting use of beta marvin and calcium channel blockers. This morning, her pressure was 102 systolic. She also quickly had developed higher than therapeutic digoxin levels without clinical signs of digoxin toxicity. The case was discussed yesterday with Dr. Miranda and he started amiodarone. Right lower lobe pneumonia, right sided pleural effusion, status post thoracentesis. On IV antibiotic for this. Hypothyroidism. Subclinical. Started on levothyroxine by cardiology. Hyperlipidemia. Continue atorvastatin. Left ventricular systolic dysfunction, mildly depressed ejection fraction. Cardiology would like to start her on low dose BHASKAR inhibitor, but her blood pressures have not been sufficient for this. Metoprolol dose was actually decreased yesterday by cardiology in order to facilitate starting BHASKAR inhibitor. She is on thromboembolic prophylaxis for the atrial fibrillation with Eliquis. At this point, discharge date is still unknown. Cardiac medications have been adjusted. She has just been started on amiodarone and will be watched on telemetry for a period of time with this. She will probably be here through this week. Dr. Lesia Ly will assume her care tomorrow.
[2018-10-20 12:00] VITALS: BP 118/67
[2018-10-20 16:00] VITALS: BP 128/56
[2018-10-20 20:00] VITALS: BP 121/64
[2018-10-20 23:59] VITALS: BP 120/81
[2018-10-21] MEDS: METOPROLOL TART 12.5 MG PER 1/2 TAB PO SCH ×4 (00:09→18:42)
[2018-10-21 04:00] VITALS: BP 146/68
[2018-10-21] MEDS: PIPERACILLIN/TAZOBACTAM SOD 2.25 GM in D5W MINI-BAG PLUS 50 ML IV SCH (04:01)
[2018-10-21] MEDS: SLF 3 ML SYR IV SCH ×3 (05:18→22:00)
[2018-10-21] MEDS: LEVOTHYROXINE 100MCG TABLET (0.1MG) PO SCH (05:18)
[2018-10-21 05:54] LABS: BASO % 0.4 % (0.0-1.0); EOS # 0.2 10^3/uL (0.0-0.50); EOS % 2.4 % (0.0-3.0); HEMATOCRIT 31.7 % (36.0-47.0); HEMOGLOBIN 9.6 g/dl (12.0-15.5); LYMPH # 0.5 10^3/uL (1.5-4.5); LYMPH % 7.9 % (24.0-44.0); MEAN CORPUSCULAR HGB CONC 30.3 g/dl (32.0-36.5); MEAN CORPUSCULAR VOLUME 92.4 fl (80.0-96.0); MONO # 0.8 10^3/uL (0.0-0.8); NEUTROPHILS # 5.3 10^3/uL (1.8-7.7); NEUTROPHILS % 77.6 % (36.0-66.0); PLATELET COUNT, AUTOMATED 258 10^3/uL (150-450); RED BLOOD COUNT 3.43 10^6/uL (4.00-5.40); WHITE BLOOD COUNT 6.8 10^3/uL (4.0-10.0)
[2018-10-21 06:11] LABS: BLOOD UREA NITROGEN 11 MG/DL (7-18); CALCIUM LEVEL 8.5 MG/DL (8.8-10.2); CARBON DIOXIDE LEVEL 27 MEQ/L (21-32); CHLORIDE LEVEL 101 MEQ/L (98-107); CREATININE FOR GFR 0.87 MG/DL (0.55-1.30); GLOMERULAR FILTRATION RATE > 60.0 (>39); GLUCOSE, FASTING 93 MG/DL (70-100); POTASSIUM SERUM 5.1 MEQ/L (3.5-5.1); SODIUM LEVEL 134 MEQ/L (136-145)
[2018-10-21 08:00] VITALS: BP 132/58
[2018-10-21] MEDS: OMEPRAZOLE 20 MG CAP PO SCH (08:58)
[2018-10-21] MEDS: EZETIMIBE 10 MG TAB (ZETIA) PO SCH (08:58)
[2018-10-21] MEDS: AMIODARONE 200 MG TAB (PACERONE) PO SCH (08:58)
[2018-10-21] MEDS: DIGOXIN 0.125 MG TAB PO SCH (08:59)
[2018-10-21] MEDS: APIXABAN 5 MG TAB (ELIQUIS) PO SCH ×2 (08:59→20:34)
[2018-10-21] MEDS ORDERED: ISOVUE-370 76% 100ML VIAL (Q9967) As Ordered ONE (11:35)
[2018-10-21 12:00] VITALS: BP 115/66
[2018-10-21] MEDS: LevoFLOXacin 250 MG TABLET PO SCH (12:40)
--- NOTE | 2018-10-21 13:10 | REP ---
CT chest with IV contrast: History: Shortness of breath. Pleural effusion. Comparison chest CT study October 14, 2018. CT contrast dose: 75 ml of intravenous Isovue [address] findings: There is a new small left pleural effusion not present on the study done 7 days prior. A moderate size right pleural effusion is again seen essentially unchanged. There is a atelectasis and some consolidation in the right lower lobe with air bronchograms. Right upper and middle lobes are fairly well aerated. There is no evidence of hilar or mediastinal adenopathy. There is however a thrombus in the pulmonary arterial tree in the right lower lobe and right middle lobe pulmonary arteries. No other pulmonary embolism is appreciated. There is no evidence of aortic dissection or aneurysm. No adrenal mass lesion is seen on either side. Bone window settings show some degenerative thoracic spine changes. No bony destructive lesion is seen. Impression: 1. There is evidence of pulmonary embolism involving the right lower and middle lobe segmental pulmonary arteries. 2. There is atelectasis and consolidation in the right lower lobe. 3. There is a moderate-sized right pleural effusion. 4. Small new left pleural effusion. 5. No visible mass or adenopathy is seen. Electronically Signed by Hilario King MD 10/21/2018 08:37 P
--- NOTE | 2018-10-21 13:15 | IPN ---
DATE: 10/21/2018 SUBJECTIVE: The patient says she is feeling much better. She states she has no complaints of shortness of breath. She tells me that she does not have any significant palpitations. No fevers or chills. OBJECTIVE: Vital Signs: Temperature 97.1. Pulse 98. Respiratory rate 20. Blood pressure 132/58. Oxygen saturation 94% on 1 liter nasal cannula. General: She is a frail elderly female sitting in a chair. She does not appear to be in any acute distress at this time. She is awake, alert, oriented times three, speaking in complete sentences. HEENT: She has chronic facial asymmetry. Moist mucous membranes. No elevation of CVP. Cardiovascular Exam: S1 and S2. Appears regular. Mildly tachycardic at the time of my exam. Respiratory Exam: She has absent breath sounds at the right base. Otherwise good air movement on the left. Abdominal exam is benign. Extremities: No clubbing, cyanosis, or significant edema. LABORATORY STUDIES: WBC 6.8, hemoglobin 9.6, platelet count 258. Chemistry panel with sodium 134, potassium 5.1, chloride 101, bicarbonate 27, BUN 11, creatinine 0.8. Digoxin level yesterday was 1.9. Microbiology is all thus far negative. Pathology from the reveals reactive mesothelial cells and blood elements with predominance of neutrophils suggestive of acute inflammatory process. Cytology from the of the pleural fluid was negative for malignancy. The patient did have a thoracentesis on the that was ultrasound guided with greater than 1 liter of yellow fluid withdrawn. She had a chest x-ray that revealed right lower lobe infiltrate, no obvious pneumothorax. She also had a renal ultrasound that revealed chronic medical renal disease, mild right hydronephrosis, 1.3 cm simple left renal cyst, incidental right pleural effusion. She also had a CT scan of her chest that revealed large right pleural effusion and multifocal right sided infiltrate with a differential diagnosis that includes congestive heart failure, pulmonary edema, multifocal pneumonia, malignancy, including bronchogenic carcinoma. Cardiomegaly with atherosclerotic changes of the thoracic aorta and coronary arteries. Infiltration to the visualized upper abdominal mesentery, retroperitoneum, as well as, possible enlargement of the left adrenal gland. She also had an echocardiogram that revealed probable mildly depressed global LV systolic function with a diffuse global hypokinesis. Trace pericardial effusion. Consider rechecking EF when her rate is better controlled. EF was estimated during this study to be 45-50%. ASSESSMENT AND PLAN: This is a 78-year-old female who presented with dyspnea and found to have large right sided pleural effusion, new onset atrial fibrillation with rapid ventricular response and moderately depressed systolic function. PROBLEMS: 1. Dyspnea, likely multifactorial, likely related to her pleural effusion and atrial fibrillation. Her rate is still not adequately controlled. It is however improving. Cardiology's help has been greatly appreciated. She is on digoxin, amiodarone as well as metoprolol. She has been anticoagulated with Eliquis. 2. Right pleural effusion. The etiology is not immediately clear. It appears as though there is some reactive neutrophils there. Despite the pleural studies, I am suspicious for decompensated heart failure as the etiology in the setting of her new arrhythmia and given it is on the right side I suspect this makes the most sense as a single unifying diagnosis and given that she also has some moderate systolic dysfunction as well. She has not had any twila fevers or pneumonia-like symptoms. Her cultures have been negative. At this time, I will narrow her antibiotic spectrum. My suspicion for parapneumonic effusion is lower. Will complete a course of antibiotics. I agree with Dr. Haq that rechecking a CT of the chest with contrast now that she has been drained is appropriate and I will order this at this time. 3. Chronic kidney disease. Renal function appears to be stable at this time. 4. Dyslipidemia. Continue Zetia. 5. Gastroesophageal reflux disease. Continue with omeprazole. 6. Hypothyroidism. Continue with Synthroid. Her TSH was mildly elevated at the time of admission. Consider rechecking on the outpatient setting once her acute medical illness has resolved. 7. Lactic acidosis. Resolved. DISPOSITION: Pending physical therapy (PT) evaluation, rate control and repeat CT of chest.
[2018-10-21 16:00] VITALS: BP 120/67
[2018-10-21 19:00] VITALS: BP 126/50
[2018-10-21 23:59] VITALS: BP 125/73
[2018-10-22] MEDS: METOPROLOL TART 12.5 MG PER 1/2 TAB PO SCH ×2 (00:12→05:37)
[2018-10-22 04:00] VITALS: BP 123/72
[2018-10-22] MEDS: LEVOTHYROXINE 100MCG TABLET (0.1MG) PO SCH (05:37)
[2018-10-22] MEDS: LevoFLOXacin 250 MG TABLET PO SCH (05:37)
[2018-10-22] MEDS: SLF 3 ML SYR IV SCH ×3 (05:37→20:56)
[2018-10-22] MEDS ORDERED: ELIQ5TAB PO (05:55)
[2018-10-22 06:14] LABS: BASO % 0.6 % (0.0-1.0); EOS # 0.1 10^3/uL (0.0-0.50); EOS % 1.6 % (0.0-3.0); HEMATOCRIT 31.3 % (36.0-47.0); HEMOGLOBIN 9.6 g/dl (12.0-15.5); LYMPH # 0.6 10^3/uL (1.5-4.5); LYMPH % 8.4 % (24.0-44.0); MEAN CORPUSCULAR HEMOGLOBIN 28.4 pg (27.0-33.0); MEAN CORPUSCULAR HGB CONC 30.7 g/dl (32.0-36.5); MEAN CORPUSCULAR VOLUME 92.6 fl (80.0-96.0); MONO # 0.7 10^3/uL (0.0-0.8); MONO % 10.3 % (0.0-5.0); NEUTROPHILS # 5.2 10^3/uL (1.8-7.7); NEUTROPHILS % 78.7 % (36.0-66.0); PLATELET COUNT, AUTOMATED 277 10^3/uL (150-450); RED BLOOD COUNT 3.38 10^6/uL (4.00-5.40); WHITE BLOOD COUNT 6.7 10^3/uL (4.0-10.0)
[2018-10-22 06:30] LABS: BLOOD UREA NITROGEN 10 MG/DL (7-18); CALCIUM LEVEL 8.6 MG/DL (8.8-10.2); CARBON DIOXIDE LEVEL 28 MEQ/L (21-32); CHLORIDE LEVEL 100 MEQ/L (98-107); GLOMERULAR FILTRATION RATE > 60.0 (>39); GLUCOSE, FASTING 85 MG/DL (70-100); POTASSIUM SERUM 4.9 MEQ/L (3.5-5.1); SODIUM LEVEL 134 MEQ/L (136-145)
[2018-10-22 08:00] VITALS: BP 128/72
--- NOTE | 2018-10-22 08:18 | IPN ---
DATE: 10/22/2018 Mrs. Romero tells me that she is feeling better. She feels that she is less short of breath. She was able to ambulate to bathroom and around progressive care unit (PCU) yesterday with oxygen on but without major difficulty. She remains in atrial fibrillation and the heart rate is still not perfectly well controlled. Rest is in 90s, but with ambulation rapidly gets into 130s up to the 150s. There were no episodes of ventricular tachycardia and there were no pauses. Her balance yesterday was about 660 negative. Weight has not really changed appreciably since admission, is 61 kg today. She had a CT angiography of the chest yesterday that somewhat surprisingly to me revealed evidence for embolism in right lower lobe artery. Vital signs: Blood pressure is 123/72, heart rate as above. Afebrile. Saturation 92% on 1 liter of oxygen. Fluid balance yesterday slightly negative. Weight 61 as above. She is alert and oriented appropriate. I do not appreciate any jugular venous pulse (JVP) elevation. There are very diminished breath sounds over approximately one-third to one-half of her right lung field. I do not appreciate any wheezing, crackles or rhonchi. Left lung sounds pretty clear. Heart exam reveals irregular tachycardia. No gallop or rub is appreciated. Abdomen is soft. No tenderness. No peripheral edema and neurologically she is intact. LABORATORY: Basic metabolic panel is normal with the exception of slight hyponatremia with sodium 134 and CBC reveals hemoglobin 9.6, hematocrit 31, and platelet count 277,000. ASSESSMENT AND PLAN: Mrs. Romero is a 78-year-old female who presented with approximately 1-month history of illness that started as respiratory infection clinically and on presentation was found to have atrial fibrillation with rapid ventricular response (RVR), a large right pleural effusion but also acute renal failure. Initially she was managed with the idea that she has potential infectious process. The thoracentesis was suggestive more of exudate than transudate even though it was barely crossing the dividing line based on Light criteria. She has been anticoagulated and it has been difficult to accomplish good rate control because she was initially quite hypotensive. Eventually I decided to start her on amiodarone in very low dose to help accomplish better rate control but in the last couple days her blood pressure is actually better and I think that we will be able to advance the dose of beta-marvin and in the long horizon we potentially we will be able to avoid either digoxin or amiodarone. She has been anticoagulated with apixaban since the morning after thoracentesis. As far as the management of pulmonary embolism is concerned, it is somewhat surprising to me she has been already anticoagulated for several days and the thrombus is still visible, I do not think that it will fundamentally alter our management as she will remain anticoagulated for foreseeable future and possibly permanently. The next issue is that of pleural effusion. Even though the criteria are favoring exudate I do believe that there is a component of right-sided heart failure, especially now when she developed also left pleural effusion. Her pro-BNP was also very high. Even though she had preserved systolic function, I think it is appropriate to accomplish at least modest diuresis and I will start giving her furosemide twice a day, only 20 mg. I am hoping that she will be able to go home by the end of this week. She certainly will need to very close followup on outpatient basis. JULI
[2018-10-22] MEDS: APIXABAN 5 MG TAB (ELIQUIS) PO SCH ×2 (08:34→20:56)
[2018-10-22] MEDS: FUROSEMIDE 20 MG/2 ML VIAL (J1940) IV SCH ×2 (08:34→17:45)
[2018-10-22] MEDS: EZETIMIBE 10 MG TAB (ZETIA) PO SCH (08:34)
[2018-10-22] MEDS: AMIODARONE 200 MG TAB (PACERONE) PO SCH (08:34)
[2018-10-22] MEDS: DIGOXIN 0.125 MG TAB PO SCH (08:35)
[2018-10-22] MEDS: OMEPRAZOLE 20 MG CAP PO SCH (08:35)
[2018-10-22] MEDS: METOPROLOL TART 25 MG TABLET PO SCH ×2 (11:59→17:47)
[2018-10-22 12:00] VITALS: BP 138/90
[2018-10-22 16:00] VITALS: BP 135/65
[2018-10-22 20:00] VITALS: BP 130/71
--- NOTE | 2018-10-22 22:00 | IPN ---
DATE: 10/22/2018 SUBJECTIVE: The patient tells me she is feeling better. She tells me that she still has some shortness of breath, but otherwise she has not any palpitations, headache, fevers, chills, or chest pain. OBJECTIVE: VITAL SIGNS: Temperature 99.2, pulse 88, respiratory rate 22, blood pressure 138/90, oxygen saturation 95% on one liter nasal cannula. GENERAL: She is a frail, elderly, female laying in bed accompanied by her daughter. The patient does not appear to be in any acute distress. She is awake, alert, oriented times three, speaking in complete sentences, no accessory muscle use. HEENT: chronic facial asymmetry. Moist mucous membranes. Some subtle appreciation of elevation in her central venous pressure (CVP). RESPIRATORY EXAM: She has diminished breath sounds on the right and some diminished breath sounds at the left base, but otherwise good air movement on the left. ABDOMINAL EXAM: Bowel sounds are present, the abdomen is soft. EXTREMITIES: There is trace edema bilaterally in all 4 extremities. LABORATORY STUDIES: WBC 6.7, hemoglobin 9.6, platelet count 277. Chemistry panel: Sodium 134, potassium 4.9, chloride 100, bicarbonate 28, BUN 10, creatinine 0.9. Blood cultures and pleural fluid cultures have thus far been negative as is cytology and pathology. The patient did have a repeat CT scan of her chest yesterday afternoon that revealed evidence of pulmonary embolus (PE) along the right lower and middle lobe segmental pulmonary arteries. New small left pleural effusion. Moderate right-sided pleural effusion. No visible mass or adenopathy. ASSESSMENT AND PLAN: This is a 78-year-old female who presented with dyspnea, found to have a right-sided pleural effusion, new onset atrial fibrillation and moderately depressed systolic dysfunction. 1. Dyspnea. Possibly multifactorial in nature and in search of a unifying diagnosis. I am suspicious if she did have a pulmonary embolism which pushed her into atrial fibrillation and decompensated systolic heart failure. Her pleural effusion has been tapped and is still moderate remaining. Her dyspnea is improving. Will continue to see if it improves and we can wean her back to room air which is her baseline with continued diuresis. Cardiology's help is greatly appreciated. 2. Right pleural effusion. I suspect this is more likely related to decompensated heart failure than any pneumonia. She is completing a course of antibiotics. Cultures have so far been negative. Will see if it improves with diuresis 3. Atrial fibrillation possibly secondary to pulmonary embolism and mildly elevated TSH Certainly not high enough to prompt this. Her rate control is improved today. She is continued metoprolol 25 mg every 6 hours in addition to digoxin. She is anticoagulated with Eliquis. 4. Pulmonary embolism. This is day #7 of anticoagulation. Pulmonary embolism normally we would treat with 10 mg by mouth twice a day and then titrate down to 5 mg twice a day. She has been on atrial fibrillation dosing. At this time, I will not increase her dose to 10 mg, but it may explain why the pulmonary embolism is still present and has been somewhat slower to respond. It also may have been that this was not new during her hospitalization. I think it is more likely this pre-exists her admission. 5. Hypothyroidism. As outlined above, her TSH is actually mildly elevated. She is currently on levothyroxine 100 mcg daily. I do not think that this is playing a role in her arrhythmia. Could consider repeating her TSH in the outpatient setting and titrating her levothyroxine if it remains elevated. 6. Lactic acidosis: Resolved MTDD
[2018-10-23] VITALS: BP 130/64
[2018-10-23] MEDS: METOPROLOL TART 25 MG TABLET PO SCH ×2 (00:40→06:05)
[2018-10-23] MEDS: LEVOTHYROXINE 100MCG TABLET (0.1MG) PO SCH (06:04)
[2018-10-23] MEDS: SLF 3 ML SYR IV SCH ×3 (06:05→22:00)
[2018-10-23] MEDS: LevoFLOXacin 250 MG TABLET PO SCH (06:05)
[2018-10-23 08:00] VITALS: BP 104/62
--- NOTE | 2018-10-23 08:15 | IPN ---
DATE: 10/23/2018 Mrs. Romero is slightly better than yesterday. She tells me that she feels less short of breath. She was able to ambulate yesterday. Unfortunately without oxygen she is desaturating with ambulation into high 80s fairly rapidly. Denies any chest pain or sensation of palpitations. Vital Signs: Blood pressure is 130/64. Heart rate on average around 90. Overall her heart rate is much improved compared to few days ago. Saturation is 92-93% on 1 liter of oxygen by nasal cannula. She is afebrile. Fluid balance yesterday was documented negative 630. Weight has not been documented this morning yet. She is alert, oriented and appropriate. I do not appreciate much of jugular venous pulse (JVP) elevation. Lungs are relatively clear on the left, but very diminished on the right and at least a third of the lung field is likely occupied by effusion. Heart exam reveals irregularly irregular rhythm without obvious gallop, rub or murmur. Abdomen is soft, nontender. She does not have peripheral edema. Neurologically she is intact. LABORATORIES: Basic metabolic panel is normal with exception of sodium of 134. The CBC reveals hemoglobin 9.6, hematocrit 31, platelet count 277,000. ASSESSMENT/PLAN: Mrs. Romero is a 78-year-old female who came after a several week history that started as a respiratory infection, but on presentation she was found to have a large right pleural effusion, was in atrial fibrillation with rapid ventricular response and had acute renal failure. She underwent thoracentesis that was suggestive of exudate rather than transudate, but eventually diagnosis of pulmonary embolism was made by CT angiography after her renal function recovered. At this point ,she still has a large right pleural effusion, but as far as the atrial fibrillation is concerned, she is much better rate controlled and she is improving every day. She has been anticoagulated with Eliquis since day two of the admission. She still has pleural effusion which in my opinion is partially due to right-sided heart failure and partially she might have right compression atelectasis and related inflammation. From my perspective, she can be discharged home. She will need very close outpatient followup, which I will be happy to arrange later next week. She certainly remains quite ill and it is important that she knows that she needs to come back to the hospital should her condition deteriorate. As far as discharge medications are concerned, I would leave her on a small dose of diuretics, probably would leave her on furosemide 40 mg daily, metoprolol 50 twice a day and 200 mg daily amiodarone. I probably would discontinue digoxin. Her heart rate is slowing down and as the amiodarone exerts its effect her heart rate will very likely continue to slow further. Obviously, the ultimate decision about discharge will be up to her attending physician and I will get in touch with Dr. Bradley today.
[2018-10-23] MEDS: OMEPRAZOLE 20 MG CAP PO SCH (09:27)
[2018-10-23] MEDS: AMIODARONE 200 MG TAB (PACERONE) PO SCH (09:27)
[2018-10-23] MEDS: EZETIMIBE 10 MG TAB (ZETIA) PO SCH (09:28)
[2018-10-23] MEDS: DIGOXIN 0.125 MG TAB PO SCH (09:28)
[2018-10-23] MEDS: FUROSEMIDE 20 MG/2 ML VIAL (J1940) IV SCH ×2 (09:28→17:44)
[2018-10-23] MEDS: SLF 3 ML SYR IV PRN ×2 (09:28→17:44)
[2018-10-23] MEDS: APIXABAN 5 MG TAB (ELIQUIS) PO SCH ×2 (09:28→20:11)
[2018-10-23 12:00] VITALS: BP 106/64
--- NOTE | 2018-10-23 14:48 | IPN ---
DATE: 10/23/2018 SUBJECTIVE: The patient tells me she is feeling a little bit better stating her breathing is improved. She otherwise has no complaints at this time. OBJECTIVE: VITAL SIGNS: Temperature 98.1, pulse 74, respiratory rate 20, blood pressure 104/62, oxygen saturation 91% on 1 liter. GENERAL: She is a pleasant elderly, female sitting in bed she is in no acute distress. HEENT: She has moist mucous membranes. Cranial nerves II through XII grossly intact CARDIOVASCULAR EXAM: S1, S2 regular. Rate is well controlled. RESPIRATORY EXAM: Diminished breath sounds on the right as well as left base. Bowel sounds are present, the abdomen is soft. EXTREMITIES: 1+ edema bilaterally. LABORATORY STUDIES: Have been stable for several days. No other laboratory studies ordered today. No new imaging. ASSESSMENT AND PLAN: This is a 78-year-old female who presented with dyspnea. 1. Dyspnea. Likely multifactorial in nature. I suspect she may have had a pulmonary embolism that sent her into atrial fibrillation and then subsequently decompensated heart failure with significant right sided pleural effusion. Tap was exudative, however, my suspicion is that this is more likely related to congestive heart failure (CHF). We are currently diuresing her. She is status post thoracentesis. I am optimistic about her ability to diurese her and get her off of oxygen, and she is anticoagulated with good rate control. I am optimistic about her ability to improve back to her baseline of being on room air and clearing PT prior to disposition, optimistically within the next 24-48 hours. 2. Right pleural effusion. As outlined above. I suspect decompensated heart failure. She is completing a course of antibiotics, however, my suspicion for pneumonia and parapneumonic effusion is much less. Her cultures have all been negative. 3. Atrial fibrillation possibly secondary to pulmonary embolism. Cardiology's help is greatly appreciated. She has a mildly elevated TSH. This should be repeated in the outpatient setting when her acute medical illness has resolved. I do not think that this is the etiology for her atrial fibrillation. She is rate controlled with metoprolol which we will transition to 50 mg twice a day. Discontinue digoxin. Continue with amiodarone. She is anticoagulated with Eliquis. Once again, cardiology's help is greatly appreciated. 4. Pulmonary embolism. She is adequately anticoagulated at this time. My recommend would be that she completes at least a 6 month course and advised her that she follow-up closely with her primary care provider to ensure that she is up to date with all of her routine screening. Given her age there is certainly a possibility for occult malignancy being the etiology for her pulmonary embolism. 5. Hypothyroidism. As outlined above. For now we will continue with her regular home Synthroid dosing. 6. Lactic acidosis. Resolved. 7. Deep vein thrombosis (DVT) prophylaxis. She is anticoagulated with Eliquis. 8. Dyslipidemia. She is on Zetia. DISPOSITION: Pending physical therapy clearance and oxygen requirement resolution or at least improvement. MTDD
[2018-10-23 16:00] VITALS: BP 108/82
[2018-10-23 20:00] VITALS: BP 110/82
[2018-10-23] MEDS: METOPROLOL TART 50 MG TAB PO SCH (20:12)
[2018-10-24] VITALS (7 sets, daily range): BP systolic 96–136; BP diastolic 56–80
[2018-10-24 05:42] LABS: HEMOGLOBIN 9.9 g/dl (12.0-15.5); MEAN CORPUSCULAR HGB CONC 30.9 g/dl (32.0-36.5); MEAN CORPUSCULAR VOLUME 90.7 fl (80.0-96.0); PLATELET COUNT, AUTOMATED 300 10^3/uL (150-450); RED BLOOD COUNT 3.53 10^6/uL (4.00-5.40); WHITE BLOOD COUNT 6.2 10^3/uL (4.0-10.0)
[2018-10-24] MEDS: SLF 3 ML SYR IV SCH ×3 (06:00→21:03)
[2018-10-24 06:06] LABS: CALCIUM LEVEL 8.2 MG/DL (8.8-10.2); CREATININE FOR GFR 1.09 MG/DL (0.55-1.30); GLOMERULAR FILTRATION RATE 51.5 (>39); POTASSIUM SERUM 4.2 MEQ/L (3.5-5.1)
[2018-10-24] MEDS: LEVOTHYROXINE 100MCG TABLET (0.1MG) PO SCH (06:17)
[2018-10-24] MEDS: LevoFLOXacin 250 MG TABLET PO SCH (06:17)
--- NOTE | 2018-10-24 08:33 | IPN ---
DATE: 10/24/2018 Mrs. Romero tells me that she is again feeling slightly better than yesterday. She still gets short of breath with ambulation but believes that there has been considerable improvement. Denies any chest pain or sensation of palpitations. Her heart rate continues to improve, currently mostly in 70s and 80s, still in atrial fibrillation. No ventricular arrhythmias. Vital signs: Blood pressure 116/76, heart rate as above. Afebrile. Saturation 96% on 1 liter of oxygen. Fluid balance yesterday was documented as negative 400. Weight is 61.1, which is unchanged from 2 days ago. She is alert, oriented and appropriate. Her JVP does not appear elevated. Heart exam reveals irregularly irregular rhythm. I do not appreciate any gallop, rub or murmur. Lungs are very diminished on the right side. I would assume at least one third of her lung field is occupied by pleural effusion. On the left reasonably clear even though the actual very base is also diminished. Abdomen soft, nontender. Extremities are free of edema. Neurologically she is intact. Laboratory kay, basic metabolic panel is normal and CBC reveals stable anemia with hemoglobin 9.1, hematocrit 32 and platelet count 300,000 ASSESSMENT/PLAN: Mrs. Romero is a 78-year-old female who presented with initially symptoms of upper respiratory infection to be followed by gradual progressive dyspnea over several weeks. After her presentation to the ER she was found to have a large right pleural effusion that was exudative by fluid analysis. She also was in atrial fibrillation with rapid ventricular response and acute renal failure. She was initially treated with rate control and anticoagulation and eventually underwent CT angiography when her renal function normalized. The CT angiography did reveal evidence for pulmonary embolism in her right lung. Ongoing medicine medical management is continued. Besides anticoagulation and rate control, she is also now on diuretics as there is likely component of right-sided heart failure. She is very slowly improving, but I do expect that this is going to be a prolonged course. My recommendations are unchanged from yesterday. I believe that the patient can be discharged home with very close follow-up. Waiting for her to meet home safety evaluation criteria. She is still hypoxic.
[2018-10-24] MEDS: FUROSEMIDE 20 MG/2 ML VIAL (J1940) IV SCH ×2 (08:43→17:12)
[2018-10-24] MEDS: APIXABAN 5 MG TAB (ELIQUIS) PO SCH ×2 (08:43→20:43)
[2018-10-24] MEDS: OMEPRAZOLE 20 MG CAP PO SCH (08:44)
[2018-10-24] MEDS: EZETIMIBE 10 MG TAB (ZETIA) PO SCH (08:44)
[2018-10-24] MEDS: METOPROLOL TART 50 MG TAB PO SCH ×2 (08:44→20:43)
[2018-10-24] MEDS: AMIODARONE 200 MG TAB (PACERONE) PO SCH (08:54)
--- NOTE | 2018-10-24 13:37 | IPN ---
DATE: 10/24/2018 SUBJECTIVE: The patient tells me she is still has some shortness of breath with activity. Denies any fevers, chills, chest pain OBJECTIVE: VITAL SIGNS: Temperature 98.3, pulse 100, respiratory rate 18, blood pressure 100/62, oxygen saturation 91% on 2 liters. When I enter the room I am able to take her off her oxygen and she is able to maintain sats of 92% at rest. I did ambulate her and she dips to 88% but not below that. GENERAL: She is awake, alert and oriented times three. Speaking in complete sentences. CARDIOVASCULAR EXAM: She is not tachycardic. RESPIRATORY EXAM: Quite clear. EXTREMITIES: Trace edema bilaterally. LABORATORY STUDIES: WBC 6.2, hemoglobin 9.9, platelet count 300. Chemistry panel - sodium 136, potassium 4.4 No new imaging. ASSESSMENT AND PLAN: This is a 78-year-old female who presented with dyspnea. 1. Dyspnea. Likely multifactorial. I suspect she may have had a pulmonary embolism that sent her into atrial fibrillation with subsequently decompensated congestive heart failure. Dr. Haq is also suspicious for right sided heart failure. At this time, we are continuing to diurese her. She is status post thoracentesis, which was somewhat suggestive of exudation. She has been anticoagulated. We have achieved fairly good rate control other than this morning when her beta-marvin was held. I have instructed this to be given at this time. I am optimistic about her ability to improve back to her baseline and will attempt to diurese her for an additional day to see if she is able to go home without oxygen. Should she fail to do this, she may be discharged with 1 liter of oxygen and follow-up closely with cardiology. 2. Right pleural effusion. As outlined above. I suspect this is related to the congestive heart failure. She does appear to be improving daily with diuresis. 3. Atrial fibrillation possibly secondary to pulmonary embolism. Cardiology's help is appreciated. She has a mildly elevated TSH. This should be repeated in the outpatient setting after her acute medical illness has resolved. I do not think it is the etiology for her atrial fibrillation. She is rate controlled with metoprolol and amiodarone. She is anticoagulated with Eliquis. 4. Pulmonary embolism. She is anticoagulated with Eliquis. Given her age I would have her follow closely with her primary care provider and ensure all routine screenings are up to date. Given her gain, there is certainly a possibility of an occult malignancy as a potential etiology for pulmonary embolism. 5. Hypothyroidism. As outlined above. 6. Lactic acidosis. Resolved. 7. Dyslipidemia. She is on Zetia. 8. Deep vein thrombosis (DVT) prophylaxis. She is anticoagulated with Eliquis. DISPOSITION: Home tomorrow. JULI
[2018-10-25 03:57] VITALS: BP 128/74
[2018-10-25 05:33] LABS: HEMATOCRIT 31.2 % (36.0-47.0); HEMOGLOBIN 9.5 g/dl (12.0-15.5); MEAN CORPUSCULAR HEMOGLOBIN 27.7 pg (27.0-33.0); MEAN CORPUSCULAR HGB CONC 30.4 g/dl (32.0-36.5); PLATELET COUNT, AUTOMATED 313 10^3/uL (150-450); RED BLOOD COUNT 3.43 10^6/uL (4.00-5.40)
[2018-10-25] MEDS: LEVOTHYROXINE 100MCG TABLET (0.1MG) PO SCH (05:36)
[2018-10-25] MEDS: SLF 3 ML SYR IV SCH (05:36)
[2018-10-25 06:05] LABS: CALCIUM LEVEL 8.4 MG/DL (8.8-10.2); CREATININE FOR GFR 1.19 MG/DL (0.55-1.30); GLOMERULAR FILTRATION RATE 46.6 (>39); POTASSIUM SERUM 4.3 MEQ/L (3.5-5.1)
[2018-10-25 08:00] VITALS: BP 100/62
[2018-10-25] MEDS: APIXABAN 5 MG TAB (ELIQUIS) PO SCH (09:00)
[2018-10-25] MEDS: OMEPRAZOLE 20 MG CAP PO SCH (09:00)
[2018-10-25] MEDS: AMIODARONE 200 MG TAB (PACERONE) PO SCH (09:00)
[2018-10-25] MEDS: FUROSEMIDE 20 MG/2 ML VIAL (J1940) IV SCH (09:00)
[2018-10-25] MEDS: EZETIMIBE 10 MG TAB (ZETIA) PO SCH (09:00)
[2018-10-25 09:01] VITALS: BP 118/72
[2018-10-25] MEDS: METOPROLOL TART 50 MG TAB PO SCH (09:01)
[2018-10-25] MEDS ORDERED: LEVO100T5 PO (10:05)
[2018-10-25] MEDS ORDERED: LASI40TA9 PO (10:05)
[2018-10-25] MEDS ORDERED: LOPR1TAB6 PO (10:05)
[2018-10-25] MEDS ORDERED: AMIO200T PO (10:05)
--- NOTE | 2018-10-27 15:45 | DSES ---
DATE OF ADMISSION: 10/14/2018 DATE OF DISCHARGE: 10/25/2018 DISCHARGE DIAGNOSIS: Pulmonary embolism. SECONDARY DIAGNOSES: 1. Right pleural effusion. 2. New onset atrial fibrillation with rapid ventricular response. 3. Decompensated congestive heart failure. 4. Acute kidney injury. CONSULTATIONS: Dr. Haq, cardiology. HOSPITAL COURSE: The patient is a 78-year-old female who was admitted with shortness of breath. She was found to have large right-sided pleural effusion and new onset atrial fibrillation with rapid ventricular response. She did have her pleural effusion tapped with thoracentesis and it was suggestive of exudative effusion, and although she was on antibiotics and completed a course of antibiotics while hospitalized, our suspicion for infectious etiology was quite low given her presentation was not entirely suggestive of it. We did have concern for decompensated heart failure secondary to atrial fibrillation with rapid ventricular response. She did improve after thoracentesis. However, she did not resolve completely to her baseline. We did do a CT angiogram of her chest which did reveal right lower and middle pulmonary embolisms. She had already been started on anticoagulation regarding her new onset atrial fibrillation with rapid ventricular response. She was started on diuresis as well by cardiology and did improve back to her baseline respiratory status after several days of diuresis. She was seen and evaluated by physical therapy during her stay who did clear her prior to discharge. SUBJECTIVE: This morning, the patient tells me that she feels well. Her breathing is not completely back to normal but it is improved. OBJECTIVE: VITAL SIGNS: Temperature 98.4, pulse 90, respiratory rate 18, blood pressure 119/72, oxygen saturation 89% on room air. GENERAL: She is a 78-year-old female, sitting, eating breakfast, accompanied by her daughter. The patient does not appear to be in any acute distress. NEUROLOGIC: Cranial nerves II-XII are grossly intact. HEENT: She has moist mucous membranes. No elevation in her central venous pressure (CVP). CARDIOVASCULAR: S1, S2, regular. RESPIRATORY: Examination is actually fairly clear today with diminished breath sounds at the right base. ABDOMEN: Obese. EXTREMITIES: No clubbing, cyanosis, or edema. LABORATORY STUDIES: WBC 6.9, hemoglobin 9.5, platelet count 313,000. Chemistry Panel: Sodium 135, potassium 4.3, chloride 95, bicarbonate 35, BUN 17, creatinine 1.1. Blood cultures and pleural fluid cultures were negative. IMAGING STUDIES: The patient had a chest x-ray at the time of her admission that revealed a large right pleural effusion. She subsequently had a chest CT revealed multifocal right-sided infiltrates and large right pleural effusion. She had a renal ultrasound that revealed chronic medical renal disease with 1.3 simple left renal cyst. She had a CT angiogram on 10/21/2018 which revealed evidence of pulmonary embolism involving the right lower and middle lobe segmental pulmonary arteries as well as a small left pleural effusion and moderate right-sided pleural effusion. No mass or adenopathies were appreciated. ASSESSMENT AND PLAN: This is a 78-year-old female who presented with dyspnea. 1. Dyspnea, likely multifactorial. Cardiology's help was greatly appreciated. I suspect that she had a pleural effusion (PE) which pushed her to atrial fibrillation and decompensated heart failure. She is improved with diuresis, rate control and anticoagulation. At this time, she does not require any oxygen. I did qualify her for oxygen once again today as there was some suspicion that she may need it when she goes home as she was quite borderline yesterday. Today, she apparently does not need it and is being discharged without home oxygen. 2. Right-sided pleural effusion. As outlined above, I think this is secondary to congestive heart failure. She did complete a course of antibiotics for pneumonia. However, I feel that this is much less likely. 3. Atrial fibrillation with rapid ventricular response. She is now well-rate controlled with amiodarone and metoprolol 50 mg by mouth twice a day. She is anticoagulated with Eliquis. Cardiology's help was greatly appreciated. 4. Pulmonary embolism. The patient is to be anticoagulated. She has been started on Eliquis. Prior authorization has been obtained. 5. Hypothyroidism. Her Synthroid has been titrated up slightly to 100 mcg and a new prescription was provided for this higher dosage. Upon discharge, she should have repeat testing of her thyroid stimulating hormone (TSH) through her primary care provider and followup. 6. Lactic acidosis, resolved. 7. Dyslipidemia. She is on Zetia. 8. Deep vein thrombosis (DVT) prophylaxis. She was anticoagulated throughout her stay. DISPOSITION: She is being discharged home to the care of her daughter who is a [employer] employee. The patient is to followup with her primary care provider (PCP) within seven days, followup with Dr. Haq within two weeks. Her activity is as tolerated. Her diet is a two-gram sodium. She is to keep to an 1800 mL fluid restriction. She has been advised to check her daily weights and if greater than a two-pound increase to call Dr. Haq's office and return to the emergency room (ER) if her symptoms worsen. MEDICATIONS AT THE TIME OF DISCHARGE: - amiodarone 200 mg daily - Eliquis 5 mg twice a day - furosemide 40 mg daily - levothyroxine 100 mcg daily - metoprolol tartrate 50 mg twice a day - allopurinol 100 mg daily - cetirizine 10 mg at bedtime - Zetia 10 mg daily - folic acid 800 mg daily - omeprazole 20 mg daily - Prolia 60 mg subcutaneously every six months Greater than 30 minutes spent organizing disposition.
== END 2018-10-25 11:53 | disposition home health service (06) | DRG 175 ==
LOC: M ED 16:14 → M ED INP 19:24 → M PCU 20:51
PROVIDERS: ADMIT Internal Medicine; ATTEND Internal Medicine
PROC: 0W993ZX Drainage of Right Pleural Cavity, Percutaneous Approach, Diagnostic (ICD-10-PCS; principal; 2018-10-15)
DX: I26.99 Other pulmonary embolism without acute cor pulmonale (principal); I50.23 Acute on chronic systolic (congestive) heart failure; J90 Pleural effusion, not elsewhere classified; N17.9 Acute kidney failure, unspecified; I48.1 Persistent atrial fibrillation; E87.2 Acidosis; I13.0 Hypertensive heart and chronic kidney disease with heart failure and stage 1 through stage 4 chronic kidney disease, or unspecified chronic kidney disease; N13.30 Unspecified hydronephrosis; E03.9 Hypothyroidism, unspecified; E78.5 Hyperlipidemia, unspecified; Z79.899 Other long term (current) drug therapy; K21.9 Gastro-esophageal reflux disease without esophagitis; F17.210 Nicotine dependence, cigarettes, uncomplicated; M81.0 Age-related osteoporosis without current pathological fracture; N18.3 Chronic kidney disease, stage 3 (moderate); M10.9 Gout, unspecified

== ENCOUNTER → 2018-11-17 | Outpatient (CLI) | payer MEDICARE, OTHER ==
[~2018-11-17] MED LIST changes: +ALLO100T PO; +AMIO200T PO; +AMLO5CAP2 PO; +CETI10TA PO; +ELIQ5TAB PO; +LASI40TA9 PO; +LEVO100T5 PO; +LOPR1TAB6 PO; +PROL60SO SC; +SYNT88TA2 PO
--- NOTE | 2018-11-17 18:05 | REP ---
Chest x-ray: Two views.: History: Atrial fibrillation. Right pleural effusion. Comparison chest x-ray: October 15, 2018. Findings: A blunted right lateral and to a posterior pleural angles persists. Findings consistent with small right pleural effusion. Lungs overall are somewhat hyperinflated with flattening of the hemidiaphragms. The heart is mildly prominent in size. The aorta is somewhat tortuous. The left lung is clear. There are degenerative changes in the thoracic spine. Impression: Persistent small right pleural effusion perhaps increased slightly from prior radiograph. Mild cardiomegaly. Electronically Signed by Hilario King MD 11/17/2018 06:24 P
== END ==
LOC: M WUC 16:52
PROVIDERS: ATTEND Internal Medicine Cardiovascular Disease
DX: I48.91 Unspecified atrial fibrillation (principal); J90 Pleural effusion, not elsewhere classified; I51.7 Cardiomegaly

== ENCOUNTER → 2018-12-26 | Outpatient (CLI) | payer MEDICARE, OTHER ==
--- NOTE | 2018-12-29 14:26 | NUR ---
Pt seen for modified barium swallow study d/t report of cough throughout meals. Pt presents with mild- pharyngeal phase dysphagia. Flash penetration of thin liquids observed but cleared with swallow. Moderate pooling in pyriform sinuses putting Pt at risk of aspiration of thin liquids with fast and large intake. Chin tuck strategy to decrease premature spillage effective. Small and frequent meals d/t COPD diagnosis. Recommend: Dysphagia therapy for teaching of compensatory strategies in controlling bolus Recommend: Soft solids with extra sauces/gravies/condiments, thin liquids Continue chin tuck. Small sips of thin liquid. Chew solids thoroughly. High caloric food choices. Addendum: 12/29/18 at 1427 by NAVI LOPEZ [facility] Amended: Links added.
--- NOTE | 2018-12-29 16:46 | REP ---
COOKIE SWALLOW The procedure was performed under the direct supervision of Dr. King. The procedure was performed with Shanell Wolf from speech pathology present. 5 ml aliquots of thin, pudding, mixed fruit, soft, solid, and a barium pill were administered. There is no evidence of penetration or aspiration. The detailed report of this examination will be provided by speech pathology. 1.2 minutes of fluoroscopy time was utilized for this procedure. Reviewed by LILLIAN Bettencourt 12/29/2018 01:42 P Electronically Signed by Hilario King MD 12/29/2018 04:37 P
== END ==
LOC: M ST 15:06
PROVIDERS: ATTEND Physician Assistant
DX: R13.10 Dysphagia, unspecified (principal)

== ENCOUNTER 2019-09-26 22:17 | Inpatient (IN) | payer MEDICARE, OTHER ==
[~2019-09-26] VITALS: Ht 154.9 cm; Wt 55.9 kg
[~2019-09-26 22:17] MED LIST changes: -AMLO5CAP2 PO; +AMLO5CAP44 PO; +ZETI10TA16 PO; -ZETI10TA30 PO
[2019-09-26 23:20] LABS: BASO # 0.1 10^3/uL (0.0-0.2); BASO % 1.1 % (0.0-1.0); EOS # 0.3 10^3/uL (0.0-0.5); HEMATOCRIT 34.6 % (36.0-47.0); HEMOGLOBIN 10.8 g/dl (12.0-15.5); LYMPH # 0.9 10^3/uL (1.5-5.0); LYMPH % 14.6 % (24.0-44.0); MEAN CORPUSCULAR HEMOGLOBIN 29.7 pg (27.0-33.0); MEAN CORPUSCULAR HGB CONC 31.2 g/dl (32.0-36.5); MEAN CORPUSCULAR VOLUME 95.1 fl (80.0-96.0); MONO # 0.6 10^3/uL (0.0-0.8); MONO % 9.8 % (0.0-5.0); NEUTROPHILS # 4.3 10^3/uL (1.5-8.5); NEUTROPHILS % 69.5 % (36.0-66.0); PLATELET COUNT, AUTOMATED 259 10^3/uL (150-450); RED BLOOD COUNT 3.64 10^6/uL (4.00-5.40); WHITE BLOOD COUNT 6.2 10^3/uL (4.0-10.0)
[2019-09-27 01:00] LABS: CALCIUM LEVEL 9.1 MG/DL (8.8-10.2); CREATININE FOR GFR 2.72 MG/DL (0.55-1.30); GLOMERULAR FILTRATION RATE 17.9 (>32); POTASSIUM SERUM 4.5 MEQ/L (3.5-5.1)
[2019-09-27] MEDS ORDERED: LEVO100T5 PO (02:26)
[2019-09-27] MEDS ORDERED: FURO40TA2 PO (02:26)
[2019-09-27] MEDS ORDERED: METO50TA7 PO (02:26)
[2019-09-27] MEDS ORDERED: ELIQ5TAB PO (02:27)
--- NOTE | 2019-09-27 02:30 | HPEPDOC ---
[facility] Medical History & Physical Date of Admission Sep 27, 2019 Date of Service: Sep 27, 2019 History and Physical CHIEF COMPLAINT: Abnormal Cr and GFR, ARF HISTORY OF PRESENT ILLNESS: Patient is an 79 year old female with PMH of HTN, HLD, former tobacco user, GERD, hypothyroidism, history of parahyperthyroidism (currently not on meds, denies any weakness, seizure, Calcium level 9.1). Had routine laboratory testing performed and found to have a creatinine of 7.2 and a GFR 17.9. Approximately a year ago, patient was stage III, CK D, a baseline creatinine of 1. She denies any issues voiding, fevers, chills, headaches, changes in vision, chest pain, shortness of breath, nausea, vomiting, abdominal pain, issues with voiding or stooling. She was recently hospitalized for A. fib with RVR and discharged on Eliquis, and Dx with HFrEF an echo on 2018, revealing an EF of 40-45%, mild depressed global LV systolic function with diffuse global hypokinesis, aortic valve sclerosis without stenosis or regurg, limited evaluation of diastolic dysfunction due to A. fib with RVR. She had stopped taking amiodarone for 3-4 months. ED spoke with nephrology, will admit patient with recommendations of management per nephrology. Daughter present with patient. ROS: 10 point review systems negative except per above. PMH: See above. PSH: See above. Hysterectomy, bladder lift Family history: Reviewed and noncontributory, family history of heart disease Social history: Former smoker, no alcohol, or illicits Medications: Reviewed Allergies: NKDA PHYSICAL EXAMINATION: VITAL SIGNS: Please see below. GENERAL: No distress HEENT: Normocephalic, atraumatic, moist mucous membranes NECK: Supple CARDIOVASCULAR EXAMINATION: S1, S2 RESPIRATORY EXAMINATION: CTAB ABDOMINAL EXAMINATION: Soft, nontender, nondistended, positive bowel sounds EXTREMITIES: no edema SKIN: No rash NEUROLOGICAL EXAMINATION: Awake PSYCHIATRIC EXAMINATION: Calm and cooperative, appropriate affect #ARF stage V vs ATN: Consider medication induced, reviewed drug interactions with Lasix and allopurinol, avoid nephrotoxins, pt has no issues with voiding, hold IV fluids at this time due to recent diagnosis of CHF, nephrology consult, will monitor creatinine and GFR, pt asx #A. fib: Continue anti-coagulant. #HFrEF: Continue diuretic and home meds #HTN.: Continue home med #GERD: Continue home med #Hypothyroid: Last TSH was 8.4 on 10/14/18, free T4 1 0.2, within normal limits. Continue home med #Gout: will temporarily hold allopurinol, patient could have allopurinol toxicity with this combination with Lasix, patient does not have leukocytosis, however, eosinophilic percentage is elevated at 4%, will obtain allopurinol level DVT prophylaxis: N OAC DNR/DNI, reports find most form, and able to find in documentation, but is confirmed by both patient, who has capacity and daughter Vital Signs Vital Signs Date Time Temp Pulse Resp B/P (MAP) Pulse Ox O2 Delivery O2 Flow Rate FiO2 09/27/19 02:17 57 94 09/27/19 02:15 136/67 (90) 09/26/19 22:37 98.7 16 Room Air Laboratory Data Labs 24H Laboratory Tests 2 09/26/19 22:50: Immature Granulocyte % (Auto) 1.0, Neutrophils (%) (Auto) 69.5H, Lymphocytes (%) (Auto) 14.6L, Monocytes (%) (Auto) 9.8H, Eosinophils (%) (Auto) 4.0H, Basophils (%) (Auto) 1.1H, Neutrophils # (Auto) 4.3, Lymphocytes # (Auto) 0.9L, Monocytes # (Auto) 0.6, Eosinophils # (Auto) 0.3, Basophils # (Auto) 0.1, Nucleated Red Blood Cells % (auto) 0.0, Anion Gap 9, Glomerular Filtration Rate 17.9L, Calcium Level 9.1 CBC/BMP Laboratory Tests 09/26/19 22:50 Home Medications Scheduled Allopurinol (Allopurinol) 100 Mg Tab, 100 MG PO DAILY Apixaban (Eliquis) 5 Mg Tablet, 5 MG PO BID Cetirizine HCl (Cetirizine HCl) 10 Mg Tab, 10 MG PO QHS Denosumab Injection (Prolia) 60 Mg/Ml Coretta, 60 MG SC ASDIRECTED EVERY 6 MONTHS, DUE IN NOVEMBER Ezetimibe (Zetia) 10 Mg Tab, 10 MG PO DAILY Folic Acid (Folic Acid) 800 Mcg Tab, 800 MCG PO DAILY Furosemide (Furosemide) 40 Mg Tablet, 40 MG PO DAILY Levothyroxine Sodium (Levothyroxine Sodium) 100 Mcg Tablet, 100 MCG PO DAILY TAKES AT 0600 Metoprolol Tartrate (Metoprolol Tartrate) 50 Mg Tablet, 50 MG PO BID Omeprazole Magnesium (Prilosec Otc) 20 Mg Tab, 20 MG PO DAILY Allergies Coded Allergies: No Known Allergies (Unverified , 07/03/17) A-FIB/CHADSVASC A-FIB History Current/History of A-Fib/PAF?: Yes Current PO Anticoag Therapy: Yes ANAYELI ADORNO MD Sep 27, 2019 02:30
[2019-09-27] MEDS ORDERED: ACETAMINOPHEN TAB 650MG DOSE (2X325MG) PO PRN (04:00)
[2019-09-27] MEDS ORDERED: MOM 30ML SUSPENSION UDC PO PRN (04:00)
[2019-09-27] MEDS ORDERED: MAALOX 30 ML SUSP *UDC PO PRN (04:00)
[2019-09-27 04:30] VITALS: BP 145/68
[2019-09-27] MEDS: LEVOTHYROXINE 100MCG TABLET (0.1MG) PO SCH (05:54)
[2019-09-27 08:06] VITALS: BP 136/63
[2019-09-27] MEDS: DOCUSATE SODIUM 100 MG CAP PO SCH ×2 (08:09→21:58)
[2019-09-27] MEDS: APIXABAN 2.5 MG TAB (ELIQUIS) PO SCH ×2 (08:09→21:58)
[2019-09-27] MEDS: OMEPRAZOLE 20 MG CAP PO SCH (08:09)
[2019-09-27] MEDS: EZETIMIBE 10 MG TAB (ZETIA) PO SCH (08:09)
[2019-09-27 08:14] LABS: BASO # 0.1 10^3/uL (0.0-0.2); BASO % 0.9 % (0.0-1.0); EOS # 0.2 10^3/uL (0.0-0.5); EOS % 4.3 % (0.0-3.0); HEMATOCRIT 31.8 % (36.0-47.0); HEMOGLOBIN 9.9 g/dl (12.0-15.5); LYMPH # 0.9 10^3/uL (1.5-5.0); LYMPH % 15.6 % (24.0-44.0); MEAN CORPUSCULAR HEMOGLOBIN 29.4 pg (27.0-33.0); MEAN CORPUSCULAR HGB CONC 31.1 g/dl (32.0-36.5); MEAN CORPUSCULAR VOLUME 94.4 fl (80.0-96.0); MONO # 0.6 10^3/uL (0.0-0.8); MONO % 11.6 % (0.0-5.0); NEUTROPHILS # 3.7 10^3/uL (1.5-8.5); NEUTROPHILS % 67.1 % (36.0-66.0); PLATELET COUNT, AUTOMATED 231 10^3/uL (150-450); RED BLOOD COUNT 3.37 10^6/uL (4.00-5.40); WHITE BLOOD COUNT 5.5 10^3/uL (4.0-10.0)
[2019-09-27] MEDS: METOPROLOL TART 50 MG TAB PO SCH ×2 (08:16→21:58)
[2019-09-27 08:43] LABS: CALCIUM LEVEL 8.8 MG/DL (8.8-10.2); CHOLESTEROL RISK RATIO 2.045 (<5); CREATININE FOR GFR 2.38 MG/DL (0.55-1.30); GLOMERULAR FILTRATION RATE 20.9 (>32); POTASSIUM SERUM 4.1 MEQ/L (3.5-5.1); THYROID STIMULATING HORMONE 0.95 uIU/ML (0.358-3.740)
[2019-09-27] MEDS ORDERED: APIXABAN 5 MG TAB (ELIQUIS) PO SCH (09:00)
[2019-09-27] MEDS ORDERED: FUROSEMIDE 40 MG TAB PO SCH (09:00)
[2019-09-27 09:13] LABS: APPEARANCE, URINE CLOUDY (CLEAR); BACTERIA, URINE AUTO 2+ (NEGATIVE); BILIRUBIN, URINE AUTO NEGATIVE (NEGATIVE); BLOOD, URINE BLOOD 1+ (NEGATIVE); COLOR, URINE YELLOW (YELLOW); GLUCOSE, URINE (UA) AUTO NEGATIVE (NEGATIVE); KETONE, URINE AUTO TRACE mg/dL (NEGATIVE); LEUKOCYTE ESTERASE, URINE AUTO 3+ (NEGATIVE); MUCUS, URINE SMALL (NEGATIVE); NITRITE, URINE AUTO NEGATIVE (NEGATIVE); PROTEIN, URINE AUTO NEGATIVE (NEGATIVE); RBC, URINE AUTO 4 /HPF (0-3); SQUAMOUS EPITHELIAL CELL UR AU 0 /HPF (0-6); UROBILINOGEN, URINE AUTO 0.2 mg/dL (0.0-2.0); WBC, URINE AUTO 153 /HPF (0-3)
[2019-09-27] MEDS: cefTRIAXone SOD 1 GM in D5W MINI-BAG PLUS 50 ML IV SCH (11:07)
--- NOTE | 2019-09-27 11:49 | REP ---
CHEST, SINGLE VIEW: Single view of the chest is performed and compared to a prior study of 11/17/2018. Mild bibasilar interstitial fibrosis is noted. There is no acute infiltrate. Heart is normal in size. There is some calcification of the thoracic aorta. Mediastinal silhouette is otherwise unremarkable. There are mild degenerative changes of the spine. IMPRESSION: Mild chronic changes without evidence of acute infiltrate. Electronically Signed by Victor M Lane MD 09/27/2019 05:50 P
--- NOTE | 2019-09-27 12:24 | REP ---
RENAL ULTRASOUND: Real-time sonographic evaluation of the kidneys performed and compared to prior study of 10/15/2018. Right kidney measures 9.7 x 4.2 x 4.5 cm and left kidney 9.0 x 4.1 x 5.1 cm. There is mild to moderate right hydronephrosis which appears mildly worse when compared to the prior study of 10/15/2018. There is no hydronephrosis of the left kidney. There is mild proximal right hydroureter. There are several left renal cysts, largest are in the mid aspect 1.3 x 0.9 x 1.4 cm and 1.3 x 0.9 x 0.7 cm. Urinary bladder is mildly distended. Ureteral jets are not visualized with Doppler color evaluation. IMPRESSION: Mild to moderate right hydronephrosis has mildly increased in severity when compared to the prior study of 10/15/2018. No hydronephrosis on the left. There are several left renal cysts. Electronically Signed by Victor M Lane MD 09/27/2019 05:51 P
[2019-09-27 14:00] VITALS: BP 137/63
--- NOTE | 2019-09-27 14:22 | REP ---
CT ABDOMEN AND PELVIS WITHOUT CONTRAST: CT abdomen and pelvis performed without oral or IV contrast. Sagittal and coronal reconstruction images are performed. Visualized lung bases demonstrate mild fibrotic changes. The liver is grossly unremarkable. Spleen is normal in size with no intrinsic abnormality. Adrenal glands are unremarkable. Pancreas is grossly unremarkable. There is moderate right hydronephrosis with an abrupt zone of transition and obstruction at the right ureteropelvic junction. No stone is seen at that location and there is no evidence of a soft tissue mass. There is a left renal cyst 1.8 cm in diameter posterolaterally which is somewhat exophytic. There is no left hydronephrosis. There is moderate atherosclerotic calcification of the abdominal aorta without aneurysm. I see no adenopathy, free air or free fluid. I see no bowel wall thickening. No pelvic mass is seen. Urinary bladder is not distended and not evaluated. There are degenerative changes of the spine. There is a small hiatal hernia. IMPRESSION: Moderate hydronephrosis with an apparent right UPJ obstruction. No visible stone or mass at that location. Electronically Signed by Victor M Lane MD 09/28/2019 05:51 P
[2019-09-27 15:26] LABS: PERCENT SATURATION 15.4 % (13.2-45.0)
--- NOTE | 2019-09-27 20:30 | IPN ---
DATE: 09/27/2019 The patient is seen and examined at bedside. Chart has been reviewed. She denies any palpitations. She states that she gets dizzy when she gets up and walks and usually takes her time to get up and requests assistance with ambulation. The patient's heart rate has been stable with a ventricular rate of 54 to 66. Denies any chest pain, pressure, tightness, nausea, vomiting, epigastric pain. No headaches or changes in vision. PHYSICAL EXAMINATION: VITAL SIGNS: Temperature 98, pulse 66, respiratory rate 18, blood pressure 136/63, 93% on room air. GENERAL: The patient is awake, alert, oriented. Answering questions appropriately. No respiratory distress. Able to speak in full sentences. Anicteric sclerae. No jaundice. No cervical lymphadenopathy or thyromegaly. No jugular venous distention (JVD). LUNGS: Clear to auscultation with no wheezing, rales. HEART: S1, S2. Irregularly irregular. Bradycardic. ABDOMEN: Soft, nontender, nondistended. Positive bowel sounds. EXTREMITIES: No cyanosis, clubbing or any pitting edema. LABORATORY DATA: White count 5.5, hemoglobin 9.9, hematocrit 31, platelet count 231. Sodium 139, potassium 4.1, chloride 106, bicarbonate 23, BUN 75, creatinine 2.38, glucose of 85, TSH 0.95. ASSESSMENT AND PLAN: This is an 79-year-old female with a history of atrial fibrillation, dyslipidemia, hypothyroidism, reflux, hypertension, who presented to the emergency room on 09/26/2019 due to abnormal blood testing with a creatinine of 7.2, GFR 17 with a history of chronic kidney disease stage III baseline creatinine 1. The patient has been taken off amiodarone for the past 3 to 4 months. IMPRESSION: 1. Acute on chronic renal failure. The patient's creatinine has improved to 2.38. Strict input and output, daily weights. Defer to nephrology for any further intervention. Her Lasix has been discontinued. Intravenous fluids have been held due to history of congestive heart failure (CHF). 2. Atrial fibrillation. On chronic Eliquis. Currently rate controlled on metoprolol with holding parameters for a heart rate less than 60. 3. Dyslipidemia. Continue on statin. 4. Hypothyroidism. On chronic Synthroid. 5. Reflux. On Prilosec. 6. Deep vein thrombosis (DVT) prophylaxis. On chronic Eliquis. DISPOSITION: Awaiting improvement of her renal function, 1 to 2 days, pending nephrology consultation. Activity as tolerated with fall precautions. MTDD
[2019-09-27] MEDS ORDERED: CETIRIZINE (ZyrTEC) 10 MG TAB PO SCH (21:00)
[2019-09-27 22:00] VITALS: BP 130/63
[2019-09-28 05:38] LABS: HEMATOCRIT 32.6 % (36.0-47.0); MEAN CORPUSCULAR HGB CONC 30.7 g/dl (32.0-36.5); MEAN CORPUSCULAR VOLUME 94.5 fl (80.0-96.0); PLATELET COUNT, AUTOMATED 226 10^3/uL (150-450); RED BLOOD COUNT 3.45 10^6/uL (4.00-5.40); WHITE BLOOD COUNT 6.2 10^3/uL (4.0-10.0)
[2019-09-28] MEDS: LEVOTHYROXINE 100MCG TABLET (0.1MG) PO SCH (05:44)
[2019-09-28 06:00] VITALS: BP 132/64
[2019-09-28 06:12] LABS: CREATININE FOR GFR 2.24 MG/DL (0.55-1.30); GLOMERULAR FILTRATION RATE 22.4 (>32); POTASSIUM SERUM 4.5 MEQ/L (3.5-5.1)
--- NOTE | 2019-09-28 06:50 | CR ---
DATE OF CONSULTATION: 09/27/2019 REASON FOR CONSULTATION: Acute renal failure. HISTORY OF PRESENT ILLNESS: Mrs. Romero is an 79-year-old female with known history of hypertension, hyperlipidemia, hypothyroidism and gastroesophageal reflux disease. Her baseline creatinine is known to be about 1.0. She had routine labs done by her primary physician and was noticed to have a creatinine of about 2.7, due to which she was advised to come to the emergency room. In the emergency room, labs were repeated and her creatinine was noticed to be 2.7 once again last evening and I was called by the ER physician toys inspector for my opinion. I advised admission for further workup of her acute renal failure as there was no obvious cause. The patient reports that she does have history of congestive heart failure and atrial fibrillation. She has been on Lasix for about 1 year now. Last echocardiogram showed an ejection fraction of about 40-45%. PAST MEDICAL AND SURGICAL HISTORY (Significant for): 1. History of hypertension. 2. Hyperlipidemia. 3. Systolic congestive heart failure. 4. History of atrial fibrillation with rapid ventricular rate in the past. 5. History of gastroesophageal reflux disease. 6. History of hypothyroidism. MEDICATIONS: Her home medications included allopurinol 100 mg daily, Eliquis 5 mg twice a day, cetirizine 10 mg at bedtime, Prolia 60 mg every 6 months, Zetia 10 mg daily, folic acid 800 mcg daily, furosemide 40 mg daily, levothyroxine 100 mcg daily, metoprolol 50 mg twice a day, and omeprazole 20 mg daily. ALLERGIES: She has NO KNOWN DRUG ALLERGIES. PERSONAL AND SOCIAL HISTORY: The patient is a former smoker and has no history of alcohol or drug use. FAMILY HISTORY: Negative for end-stage renal disease. She does have history of heart disease in her family. REVIEW OF SYSTEMS: The patient denies any fever or chills. Ears, nose and throat are unremarkable. Cardiovascular system is negative for dyspnea, chest pain or leg edema. She reports that she did have leg edema and congestive heart failure about a year ago and has been on Lasix since then. Respiratory system is negative for cough or hemoptysis. Gastrointestinal (GI) system is negative for nausea, vomiting or diarrhea. She reports normal oral intake. Genitourinary () system negative for history of kidney stones, dysuria or hematuria. Musculoskeletal system is negative for any significant arthritis and she denies using NSAIDs. There is no history of recent leg edema. Endocrine system is negative for diabetes, but she does have hypothyroidism and a questionable history of hyperparathyroidism. Psychosocial system negative for depression or anxiety. Skin is negative for rash or ulcers. Neurological system is negative for seizures or stroke. PHYSICAL EXAMINATION: The patient is awake and alert at the time of my visit, laying in the bed without any acute distress. Temperature 98 degrees Fahrenheit, heart rate 68 per minute and respiratory rate 18 per minute. Blood pressure 136/63 mmHg and oxygen saturation 93% on room air. Head is atraumatic. Pupils are equal and reactive to light. There is no oral thrush or ulcers. Neck is supple and no jugular venous distention (JVD) or thyroid enlargement is noted. Heart sounds are regular and without a pericardial friction rub. Lungs sound clear to auscultation bilaterally. Abdomen: Soft and nontender and bowel sounds are normal. Extremities: Without any cyanosis or clubbing. Neurologically, she is awake, alert and oriented times three. LABORATORY DATA: Last evening, her hemoglobin was 10.8 and hematocrit 34.6. WBC count 6.2 and platelets 259. BUN was 77 and creatinine 2.72. Sodium was 137 and potassium 4.5. Today, her BUN is 75 and creatinine 2.38. The rest of the chemistry is essentially unchanged. Urinalysis which was ordered this morning showed a cloudy appearance with 3+ leukocyte esterase, 153 WBCs, with 4 RBCs and 2+ bacteria. PROBLEMS: 1. Acute renal failure superimposed on chronic kidney disease. She has only mild chronic kidney disease at baseline, but acute renal failure is new. She has been on diuretic for about a year and there is only a remote possibility of volume depletion. At present, she has absolutely no peripheral edema or any evidence of volume overload, so her diuretics should be held. Renal ultrasound is still pending to rule out any possibility of hydronephrosis. The patient is being encouraged for increased oral intake of fluids. 2. Urinary tract infection (UTI). Her urinalysis showed significant leukocytosis and bacteremia. Will send urine culture and start her on intravenous ceftriaxone 1 gram every 24 hours. After the results of renal ultrasound, we will consider to change her medications if needed. 3. Anemia. She does have anemia which is probably chronic and we will get iron studies to rule out any possibility of iron deficiency. 4. Hypertension. Her blood pressure is very well controlled at present and she remains on low-dose beta marvin. Her diuretic is being stopped due to acute renal failure. Thank you for involving me in the care of Mrs. Romero. I will follow her along with you.
[2019-09-28 08:24] VITALS: BP 132/64
[2019-09-28] MEDS: METOPROLOL TART 50 MG TAB PO SCH (08:24)
[2019-09-28] MEDS: OMEPRAZOLE 20 MG CAP PO SCH (08:24)
[2019-09-28] MEDS: APIXABAN 2.5 MG TAB (ELIQUIS) PO SCH (08:25)
[2019-09-28] MEDS: EZETIMIBE 10 MG TAB (ZETIA) PO SCH (08:25)
[2019-09-28] MEDS: DOCUSATE SODIUM 100 MG CAP PO SCH (08:25)
[2019-09-28] MEDS: cefTRIAXone SOD 1 GM in D5W MINI-BAG PLUS 50 ML IV SCH (10:50)
[2019-09-28] MEDS ORDERED: LEVO100T5 PO (11:43)
[2019-09-28] MEDS ORDERED: ELIQ2.5T PO (11:43)
[2019-09-28] MEDS ORDERED: CIPR250T3 PO (11:43)
--- NOTE | 2019-09-28 19:39 | IPN ---
DATE: 09/28/2019 Ms. Romero is seen this morning on her bedside. She is feeling well and denies any complaints. She has no nausea, vomiting, dyspnea, chest pain, flank pain, fever or chills. She was noticed to have a UTI and has been started on ceftriaxone pending urine culture. Her Lasix has been on hold due to acute renal failure. CT scan of abdomen and pelvis did show possible right UPJ obstruction without any stone and no hydroureter. Kidney function is gradually improving while her diuretic is on hold. PHYSICAL EXAMINATION: Temperature 99 degrees Fahrenheit, heart rate 60 per minute and respiratory rate 18 per minute. Blood pressure 132/64 mmHg and oxygen saturation 96% on room air. Head is atraumatic. Neck is supple and without JVD or thyroid enlargement. There is no oral thrush or ulcers. Heart sounds are regular and lungs sound clear to auscultation bilaterally. Abdomen soft and nontender and without a palpable organomegaly. There is no CVA tenderness. Extremities have no cyanosis or clubbing. There is no peripheral edema. Neurologically she is awake, alert and at her baseline mentation. Today's labs show WBC count 6.2, hemoglobin 10.0 and hematocrit 32.6. Platelets 226. Sodium 137, potassium 4.5, CO2 23, BUN 65 and creatinine 2.24. Glucose 93 and calcium 9.0. PROBLEMS: 1. Acute renal failure superimposed on chronic kidney disease. Probably related to prerenal azotemia and UTI. Kidney function is gradually improving. I would recommend to keep her off Lasix for now and she will be followed up as an outpatient. 2. UTI. The patient has been on ceftriaxone and should continue with antibiotics pending urine culture. This can also be followed up as outpatient. 3. Anemia, most likely chronic kidney disease anemia with normal iron studies. At this point no urgent intervention is indicated. 4. Hypertension. Blood pressure is well-controlled on current medications. She is off diuretic. 5. Congestive heart failure. The patient seems to be over diuresed and diuretic is currently on hold. She will be followed up in my office in 1 week and should be without diuretic until office visit. 6. Gout. She has history of gout and should continue with allopurinol. At this point there is no emergent acute gout tissue. DISPOSITION: From a renal standpoint, the patient can be discharged to home and followup in my office in 1 week. She will stay off diuretics until then.
--- NOTE | 2019-09-30 11:16 | DSES ---
DATE OF ADMISSION: 09/28/2019 DATE OF DISCHARGE: 09/28/2019 CHIEF COMPLAINT: Abnormal GFR and creatinine; acute renal failure. FINAL DIAGNOSES: 1. Acute renal failure on chronic kidney disease stage V. 2. Uncomplicated urinary tract infection (UTI). 3. Chronic ureteropelvic junction obstruction. 4. Atrial fibrillation. 5. Heart failure with reduced ejection fraction. 6. Hypertension. 7. Hypothyroidism. 8. Gout. 9. Gastroesophageal reflux disease (GERD). 10. Chronic anemia. HISTORY OF PRESENT ILLNESS/HOSPITAL COURSE: Alyx is an 79-year-old female with a past medical history of hyperlipidemia, hypertension, hypothyroidism, gastroesophageal reflux disease (GERD), former tobacco use, history of para hypothyroidism, who had routine lab testing performed as an outpatient with resulting creatinine of 7.2 and GFR of 17.9. The patient was subsequently instructed to present to the emergency department. Roughly one year ago, the patient was a stage III chronic kidney disease diagnosis with a baseline creatinine of 1. On admission to the emergency department, the patient denied any problems with voiding, fevers, chills, headaches, vision changes, shortness of breath, chest pain, feeling nauseated, vomiting, abdominal pain, issues with bowel movements. The patient was recently hospitalized for atrial fibrillation with rapid ventricular response and was subsequently discharged on Eliquis. She was also diagnosed at that time with heart failure with reduced ejection fraction on echocardiogram. Ejection fraction was estimated between 40 and 45% with mildly depressed global left ventricular systolic function with global diffuse hypokinesis, aortic valve sclerosis without regurgitation or stenosis, and a limited evaluation of diastolic dysfunction due to her atrial fibrillation. The patient reports having stopped taking her amiodarone for 3 to 4 months. The emergency department team spoke with the engineering assistant concrete pump operator helper and the patient was admitted under the care of the hospitalist team with recommendations for continuing management from nephrology. The patient's daughter was present in the emergency department. When the patient was brought to the floor, a renal ultrasound was ordered to rule out hydronephrosis. The patient's oral intake was increased, and her diuretics were held due to the acute renal failure superimposed on chronic kidney disease. Results of the renal ultrasound showed mild to moderate right hydronephrosis but had mildly increased in severity when compared to previous study in September 2018. There was no left sided hydronephrosis and there were several left renal cysts. Based on renal ultrasound results an abdominal pelvis CT without contrast was ordered and that came back with results of moderate hydronephrosis with an apparent right ureteropelvic junction obstruction. There was no stone that was visible or mass at the ureteropelvic junction. There was no evidence of any soft tissue mass. There was a left renal cyst and there was no left hydronephrosis. The patient's creatinine and GFR continued to improve overnight and into the day on 09/28/2019 with her diuretic held. The patient was also found to have a urinary tract infection (UTI) and IV Rocephin was started and urine cultures were ordered. The hospitalist team touched base with nephrology regarding results of renal ultrasound and abdomen/pelvis CT. Based on the patient's improving renal status and imaging results, nephrology said that the patient was able to be discharged on 09/28/2019, continuing with her antibiotics in the form of oral Levaquin 250 mg daily for 3 days. The patient could return to taking her allopurinol. The patient was to stay off of her diuretic medication until 1 weeks' time when she is to followup with nephrology as an outpatient. HOME MEDICATIONS: As per discharge reconciliation list. PHYSICAL EXAMINATION: VITAL SIGNS: Temperature 90.9 (oral), pulse 57, respiratory rate 18, blood pressure 132/64 (map 86), 96% O2 saturation on room air, BMI 23.3 kg/m GENERAL: The patient is awake, alert and oriented times three. She is a pleasant and interactive elderly, female who answers questions and responds to commands appropriately. She is in no acute distress of any kind. She appears well nourished and well hydrated. LUNGS: Clear to auscultation bilaterally, anteriorly and posteriorly. No wheezes, rhonchi or crackles appreciated. Breathing on room air and speaking in full sentences. Symmetric chest expansion. HEART: Bradycardic, irregularly irregular rhythm. S1, S2 appreciated. No jugular venous distention (JVD) appreciated. ABDOMEN: Soft, nontender, nondistended. Normoactive bowel sounds present throughout. No guarding or rigidity. HEENT: Normocephalic, atraumatic. Anicteric and non injected sclerae. Pupils are equal, round and reactive to light and accommodation. Extraocular motion is intact. The patient has no upper teeth and lower teeth have poor dentition. There is no pharyngeal erythema or exudate. Trachea is midline. EXTREMITIES: There is lower extremity nonpitting edema bilaterally with no cyanosis or clubbing. Radial and posterior tibial pulses are 2+ bilaterally. IMAGING: Portable chest x-ray on 09/26/2019: Mild chronic changes without evidence of acute infiltrate. Renal ultrasound 09/27/2019: Showed mild to moderate right hydronephrosis that has mildly increased in severity when compared to the prior study of 10/15/2018____. No hydronephrosis on the left. There are several left renal cysts. CT of the abdomen and pelvis without contrast on 09/27/2019: Moderate hydronephrosis with an apparent right ureteropelvic junction (UPJ) obstruction. No visible stone or mass at that location. PROCEDURES: None. ACTIVITY: As tolerated. DIET: Advance as tolerated. CONDITION ON DISCHARGE: Stable. DISPOSITION: Discharge to home. DISCHARGE PLAN AND FOLLOWUP INSTRUCTIONS: 1. The patient is to followup in 1 week with nephrology (Dr. Kayla Mckinley). 2. The patient is to remain off of her Lasix medication until the followup outpatient appointment with nephrology. 3. The patient is to take oral antibiotics as prescribed in medication reconciliation discharge section (Levaquin 250 mg daily for 3 days) for her urinary tract infection (UTI). 4. The patient can resume taking her allopurinol. 5. The patient is to followup with primary care physician in the next week to 10 days. 6. If the patient should experience an acute medical emergency or worsening of symptoms that led to this presentation acutely, the patient is to return to the emergency department or call 911 and seek immediate medical care. Total time spent on discharge, including coordination of care, review of chart documentation, and actual contact with the patient was greater than 35 minutes. [facility]
== END 2019-09-28 12:48 | disposition home or self-care (01) | DRG 683 ==
LOC: M ED 22:17 → M ED INP 22:18 → ENRESERV 09-27 03:02 → M MSPAV 09-27 04:28 → OBSVTOIN 09-28 09:40
PROVIDERS: ADMIT Family Medicine; ATTEND General Practice
DX: N17.9 Acute kidney failure, unspecified (principal); N39.0 Urinary tract infection, site not specified; I50.22 Chronic systolic (congestive) heart failure; I13.2 Hypertensive heart and chronic kidney disease with heart failure and with stage 5 chronic kidney disease, or end stage renal disease; N18.5 Chronic kidney disease, stage 5; I48.91 Unspecified atrial fibrillation; E03.9 Hypothyroidism, unspecified; M10.9 Gout, unspecified; K21.9 Gastro-esophageal reflux disease without esophagitis; E78.5 Hyperlipidemia, unspecified; Z87.891 Personal history of nicotine dependence; N13.1 Hydronephrosis with ureteral stricture, not elsewhere classified; N25.81 Secondary hyperparathyroidism of renal origin; Z66 Do not resuscitate; Z79.899 Other long term (current) drug therapy; D63.1 Anemia in chronic kidney disease

== ENCOUNTER → 2019-10-08 | Outpatient (REF) | payer MEDICARE, OTHER ==
[~2019-10-08] MED LIST changes: +CIPR250T3 PO; +ELIQ2.5T PO; +FURO40TA2 PO; +METO50TA7 PO
[2019-10-08 18:07] LABS: PERCENT SATURATION 15.4 % (13.2-45.0)
== END ==
LOC: M LAB REF 16:49
PROVIDERS: ATTEND Internal Medicine Nephrology
DX: D50.9 Iron deficiency anemia, unspecified (principal)

== ENCOUNTER → 2021-02-07 | Outpatient (REF) | payer MEDICARE, OTHER ==
[~2021-02-07] MED LIST changes: -AMIO200T PO; +AMIO200T3 PO; +FOLI0.8T3 PO; -FOLI800T PO
[2021-02-07 17:47] LABS: PERCENT SATURATION 3.7 % (13.2-45.0)
[2021-02-07 17:54] LABS: FOLATE 15.9 NG/ML
== END ==
LOC: M LAB REF 16:47
PROVIDERS: ATTEND Internal Medicine Nephrology
DX: D50.9 Iron deficiency anemia, unspecified (principal); D53.1 Other megaloblastic anemias, not elsewhere classified

== ENCOUNTER → 2021-02-14 | Outpatient (REF) | payer MEDICARE, OTHER | LOC: M LAB REF 17:27 | PROVIDERS: ATTEND Internal Medicine Nephrology | DX: D62 Acute posthemorrhagic anemia (principal) ==

== ENCOUNTER 2021-02-16 10:05 | Outpatient (CLI) | payer MEDICARE, OTHER ==
[~2021-02-16] VITALS: Ht 152.4 cm; Wt 75.0 kg
[2021-02-16 10:32] VITALS: BP 149/67
[2021-02-16] MEDS ORDERED: FUROSEMIDE 20MG/2ML VIAL (J1940) IV ONE (10:50)
[2021-02-16 12:42] VITALS: BP 140/65
[2021-02-16 12:56] VITALS: BP 116/53
[2021-02-16 13:56] VITALS: BP 129/60
[2021-02-16 14:25] VITALS: BP 147/67
== END 2021-02-16 13:15 | disposition home or self-care (01) ==
LOC: M INFU 10:05
PROVIDERS: ATTEND Internal Medicine Nephrology
DX: D64.9 Anemia, unspecified (principal)
CPT/HCPCS: 36430; 86920; 96374; J1940; P9016

== ENCOUNTER 2021-02-20 11:58 | Outpatient (CLI) | payer MEDICARE, OTHER ==
[~2021-02-20] VITALS: Ht 152.4 cm; Wt 75.0 kg
[~2021-02-20 11:58] MED LIST changes: +ALBUTEROL SULFATE 2.5 MG/0.5 ML INH NEB SOLN INH PRN; +EPINEPHrine INJ 1 MG/ML 1ML AMP IM PRN; +diphenhydrAMINE 50MG/ML VIAL (J1200) IV PRN; +methylPREDNISolone 125MG 2ML VIAL IV PRN
[2021-02-20] MEDS ORDERED: FERRIC CARBOXYMALTOSE INJ 750 MG, VIAL MATE ADAPTER 1 EACH in NS 250 ML IV ONE (12:30)
[2021-02-20] MEDS ORDERED: NS 1,000 ML IV SCH (12:30)
[2021-02-20 12:35] VITALS: BP 165/77
[2021-02-20 14:10] VITALS: BP 146/66
== END 2021-02-20 14:10 | disposition home or self-care (01) ==
LOC: M INFU 11:58
PROVIDERS: ATTEND Internal Medicine Nephrology
DX: D62 Acute posthemorrhagic anemia (principal)
CPT/HCPCS: 96365; J1439

== ENCOUNTER → 2021-04-11 | Outpatient (REF) | payer MEDICARE, OTHER ==
[~2021-04-11] MED LIST changes: -ALBUTEROL SULFATE 2.5 MG/0.5 ML INH NEB SOLN INH PRN; -EPINEPHrine INJ 1 MG/ML 1ML AMP IM PRN; -diphenhydrAMINE 50MG/ML VIAL (J1200) IV PRN; -methylPREDNISolone 125MG 2ML VIAL IV PRN
[2021-04-11 20:10] LABS: MAGNESIUM LEVEL 1.6 MG/DL (1.8-2.4); PERCENT SATURATION 37.3 % (13.2-45.0)
== END ==
LOC: M LAB REF 19:15
PROVIDERS: ATTEND Internal Medicine Nephrology
DX: D50.9 Iron deficiency anemia, unspecified (principal); E83.42 Hypomagnesemia

== ENCOUNTER 2021-05-14 16:27 | Emergency (ER) | payer MEDICARE, OTHER ==
[~2021-05-14] VITALS: Ht 154.9 cm; Wt 68.6 kg
[~2021-05-14 16:27] MED LIST changes: -AMIO200T3 PO; +AMIO200T49 PO
[2021-05-14] MEDS ORDERED: MORPHINE 4 MG/ML 1ML VIAL/SYRINGE (J2270) IV ONE (17:20)
[2021-05-14 18:16] LABS: BASO % 0.6 % (0.0-1.0); EOS # 0.2 10^3/uL (0.0-0.5); EOS % 3.1 % (0.0-3.0); HEMATOCRIT 28.7 % (36.0-47.0); HEMOGLOBIN 9.2 g/dl (12.0-15.5); LYMPH # 0.5 10^3/uL (1.5-5.0); LYMPH % 10.2 % (24.0-44.0); MEAN CORPUSCULAR HEMOGLOBIN 32.4 pg (27.0-33.0); MEAN CORPUSCULAR HGB CONC 32.1 g/dl (32.0-36.5); MEAN CORPUSCULAR VOLUME 101.1 fl (80.0-96.0); MONO # 0.7 10^3/uL (0.0-0.8); MONO % 13.9 % (2.0-8.0); NEUTROPHILS # 3.6 10^3/uL (1.5-8.5); NEUTROPHILS % 70.2 % (36.0-66.0); PLATELET COUNT, AUTOMATED 201 10^3/uL (150-450); RED BLOOD COUNT 2.84 10^6/uL (4.00-5.40); WHITE BLOOD COUNT 5.1 10^3/uL (4.0-10.0)
[2021-05-14 18:42] LABS: CALCIUM LEVEL 10.3 MG/DL (8.8-10.2); CREATININE FOR GFR 3.26 MG/DL (0.55-1.30); GLOMERULAR FILTRATION RATE 14.5 (>32); MAGNESIUM LEVEL 1.1 MG/DL (1.8-2.4)
[2021-05-14] MEDS ORDERED: TRAM50TA2 PO (20:29)
[2021-05-14] MEDS ORDERED: traMADol 50 MG TAB PO ONE (20:30)
[2021-05-14 21:43] VITALS: BP 133/58
== END 2021-05-14 21:45 | disposition home or self-care (01) ==
LOC: EDBD 16:27 → M ED 16:27
DX: S80.01XA Contusion of right knee, initial encounter (principal); X50.0XXA Overexertion from strenuous movement or load, initial encounter; Y92.002 Bathroom of unspecified non-institutional (private) residence as the place of occurrence of the external cause; Y93.89 Activity, other specified; Y99.9 Unspecified external cause status; M85.861 Other specified disorders of bone density and structure, right lower leg; M25.461 Effusion, right knee; N18.30 Chronic kidney disease, stage 3 unspecified; I48.91 Unspecified atrial fibrillation; I10 Essential (primary) hypertension; Z79.01 Long term (current) use of anticoagulants; Z79.899 Other long term (current) drug therapy

== ENCOUNTER 2021-05-19 14:34 | Emergency (ER) | payer MEDICARE, OTHER ==
[~2021-05-19] VITALS: Ht 154.9 cm; Wt 68.2 kg
[~2021-05-19 14:34] MED LIST changes: +AMIO200T3 PO; -AMIO200T49 PO; +TRAM50TA2 PO
--- NOTE | 2021-05-19 17:39 | REP ---
INDICATION: swelling/pain COMPARISON: None. TECHNIQUE: Real time compression and duplex Doppler interrogation of the right lower extremity deep venous system is performed, including the left common femoral vein.Compression of the right peroneal and posterior tibial veins is performed. FINDINGS: The right common femoral, superficial femoral and popliteal veins are fully compressible with transducer pressure and demonstrate normal spontaneous and phasic flow, without evidence of deep venous thrombosis.The left common femoral vein demonstrates no thrombus.The right peroneal and posterior tibial veins are not visualized due to soft tissue edema. IMPRESSION: No evidence of deep venous thrombosis of the right lower extremity femoral popliteal venous system. <Electronically signed by Victor M Lane > 05/19/21 0440
[2021-05-19 17:49] VITALS: BP 149/67
== END 2021-05-19 18:11 | disposition home or self-care (01) ==
LOC: M ED 14:34
DX: S80.11XA Contusion of right lower leg, initial encounter (principal); Y92.9 Unspecified place or not applicable; Y93.9 Activity, unspecified; Y99.9 Unspecified external cause status; I10 Essential (primary) hypertension; E78.5 Hyperlipidemia, unspecified; Z79.01 Long term (current) use of anticoagulants; Z79.899 Other long term (current) drug therapy

== ENCOUNTER → 2021-06-29 | Outpatient (REF) | payer MEDICARE, OTHER ==
[2021-06-29 18:19] LABS: MAGNESIUM LEVEL 1.4 MG/DL (1.8-2.4); PERCENT SATURATION 33.8 % (13.2-45.0)
== END ==
LOC: M LAB REF 17:28
PROVIDERS: ATTEND Internal Medicine Nephrology
DX: E83.42 Hypomagnesemia (principal); D50.9 Iron deficiency anemia, unspecified

== ENCOUNTER → 2021-10-18 | Outpatient (REF) | payer MEDICARE, OTHER ==
[~2021-10-18] MED LIST changes: -AMIO200T3 PO; +AMIO200T49 PO
[2021-10-18 18:08] LABS: PERCENT SATURATION 17.6 % (13.2-45.0)
== END ==
LOC: M LAB REF 17:11
PROVIDERS: ATTEND Internal Medicine Nephrology
DX: D50.9 Iron deficiency anemia, unspecified (principal)

== ENCOUNTER 2022-01-23 19:16 | Emergency (ER) | payer MEDICARE, OTHER ==
[~2022-01-23] VITALS: Ht 162.6 cm; Wt 68.0 kg
[2022-01-23] MEDS ORDERED: ACETAMINOPHEN TAB 650MG DOSE (2X325MG) PO ONE (19:35)
[2022-01-23 20:00] LABS: VENOUS BASE EXCESS 0.5 (-2.0-2.0); VENOUS HCO3 25.1 MEQ/L (23.0-27.0); VENOUS PARTIAL PRESSURE CO2 40.1 mmHg (38.0-50.0); VENOUS PARTIAL PRESSURE O2 32.5 mmHg (30.0-50.0); VENOUS PH 7.414 UNITS (7.330-7.430); VENOUS STANDARD HCO3 24.3 MEQ/L; VENOUS TOTAL CO2 26.3 MEQ/L (24.0-28.0)
[2022-01-23 20:05] LABS: BASO # 0.1 10^3/uL (0.0-0.2); BASO % 0.4 % (0.0-1.0); EOS # 0.1 10^3/uL (0.0-0.5); EOS % 1.1 % (0.0-3.0); HEMOGLOBIN 10.7 g/dl (12.0-15.5); LYMPH # 0.7 10^3/uL (1.5-5.0); LYMPH % 5.9 % (24.0-44.0); MEAN CORPUSCULAR HEMOGLOBIN 31.8 pg (27.0-33.0); MEAN CORPUSCULAR HGB CONC 31.5 g/dl (32.0-36.5); MEAN CORPUSCULAR VOLUME 101.2 fl (80.0-96.0); MONO # 1.2 10^3/uL (0.0-0.8); MONO % 9.8 % (2.0-8.0); NEUTROPHILS # 9.6 10^3/uL (1.5-8.5); NEUTROPHILS % 82.4 % (36.0-66.0); PLATELET COUNT, AUTOMATED 191 10^3/uL (150-450); RED BLOOD COUNT 3.36 10^6/uL (4.00-5.40); WHITE BLOOD COUNT 11.7 10^3/uL (4.0-10.0)
[2022-01-23] MEDS ORDERED: METOPROLOL TART 50 MG TAB PO ONE (20:15)
[2022-01-23] MEDS: METOPROLOL 5 MG/5 ML VIAL IV PRN ×2 (20:17→20:28)
[2022-01-23 20:28] VITALS: BP 100/65
[2022-01-23 20:40] LABS: ALBUMIN 3.1 GM/DL (3.2-5.2); BILIRUBIN,DIRECT 0.3 MG/DL (0.0-0.2); BILIRUBIN,TOTAL 0.6 MG/DL (0.2-1.0); CALCIUM LEVEL 9.1 MG/DL (8.8-10.2); CREATININE FOR GFR 1.94 MG/DL (0.55-1.30); GLOMERULAR FILTRATION RATE 26.3 (>32); POTASSIUM SERUM 3.5 MEQ/L (3.5-5.1); TOTAL PROTEIN 6.5 GM/DL (6.4-8.2)
[2022-01-23 20:40] LABS: CK-MB VALUE MASS < 1.0 NG/ML (<3.6); CPK CREATINE PHOSPHOKINASE 99 U/L (26-192); MB/CK RELATIVE INDEX 1.01 (< OR =4)
[2022-01-23] MEDS ORDERED: BENZONATATE 100MG CAPSULE PO ONE (22:05)
[2022-01-23] MEDS ORDERED: CEFDINIR 300 MG CAP (OMNICEF) PO ONE (22:05)
[2022-01-23] MEDS ORDERED: FLUT05CR (22:25)
[2022-01-23] MEDS ORDERED: LIOT5TAB6 (22:25)
[2022-01-23] MEDS ORDERED: CLOB0.057 (22:25)
[2022-01-23] MEDS ORDERED: FURO20TA2 (22:25)
[2022-01-23] MEDS ORDERED: CALC1CAP31 (22:25)
[2022-01-23] MEDS ORDERED: [UNRECOGNIZED DRUG - CODE] (22:25)
[2022-01-23] MEDS ORDERED: SYNT88TA2 (22:25)
[2022-01-23] MEDS ORDERED: TORS20TA2 (22:25)
[2022-01-23] MEDS ORDERED: CLOB-25 (22:25)
[2022-01-23] MEDS ORDERED: BENZ200C70 PO (22:28)
[2022-01-23] MEDS ORDERED: CEFD300C41 PO (22:28)
[2022-01-23 23:10] VITALS: BP 111/58
== END 2022-01-23 23:21 | disposition home or self-care (01) ==
LOC: M ED 19:16 → EDBD 19:16 → M ED 23:21
DX: J18.9 Pneumonia, unspecified organism (principal); I48.91 Unspecified atrial fibrillation; R94.31 Abnormal electrocardiogram [ECG] [EKG]; K21.9 Gastro-esophageal reflux disease without esophagitis; E03.9 Hypothyroidism, unspecified; Z86.79 Personal history of other diseases of the circulatory system; Z79.51 Long term (current) use of inhaled steroids; Z79.899 Other long term (current) drug therapy

== ENCOUNTER → 2022-02-14 | Outpatient (CLI) | payer MEDICARE, OTHER ==
[~2022-02-14] MED LIST changes: +BENZ200C70 PO; +CALC1CAP31; +CEFD300C41 PO; +CLOB-25; +CLOB0.057; +FLUT05CR; +FURO20TA2; +LIOT5TAB6; +SYNT88TA2; +TORS20TA2; +[UNRECOGNIZED DRUG - CODE]
== END ==
LOC: M WUC 15:08
PROVIDERS: ATTEND Nurse Practitioner Family
DX: L40.0 Psoriasis vulgaris (principal); Z79.899 Other long term (current) drug therapy; Z51.81 Encounter for therapeutic drug level monitoring

== ENCOUNTER → 2022-02-20 | Outpatient (CLI) | payer MEDICARE, OTHER | LOC: M WHC 12:35 | PROVIDERS: ATTEND Internal Medicine Endocrinology, Diabetes & Metabolism | DX: Z13.820 Encounter for screening for osteoporosis (principal); M85.851 Other specified disorders of bone density and structure, right thigh; M85.852 Other specified disorders of bone density and structure, left thigh ==

== ENCOUNTER → 2022-04-17 | Outpatient (CLI) | payer MEDICARE, OTHER | LOC: M WHC 15:08 | PROVIDERS: ATTEND Family Medicine | DX: Z12.31 Encounter for screening mammogram for malignant neoplasm of breast (principal) ==

== ENCOUNTER 2022-07-13 16:30 | Inpatient (IN) | payer MEDICARE, OTHER ==
[~2022-07-13] VITALS: Ht 152.4 cm; Wt 61.9 kg
[~2022-07-13 16:30] MED LIST changes: -CLOB-25; +CLOB-25 TOP; -CLOB0.057; +CLOB0.057 TOP; -SYNT88TA2; -TORS20TA2; +TORS20TA2 PO
[2022-07-13] MEDS ORDERED: FERR325T3 PO (16:52)
[2022-07-13] MEDS ORDERED: SPIR-10 PO (16:52)
[2022-07-13] MEDS ORDERED: MAGN500T6 PO (16:52)
[2022-07-13 17:32] LABS: ABG BASE EXCESS -10.5 (-2.0-2.0); ABG HCO3 14.3 MEQ/L (22.0-26.0); ABG O2 SATURATION 98.7 % (95.0-99.0); ABG PARTIAL PRESSURE CO2 28.1 mmHg (35.0-45.0); ABG PARTIAL PRESSURE O2 142.2 mmHg (75.0-100.0); ABG TOTAL CO2 15.1 MEQ/L (23.0-31.0); ABG pH (ARTERIAL) 7.323 UNITS (7.350-7.450)
[2022-07-13] MEDS ORDERED: NS 500 ML IV ONE (17:40)
[2022-07-13 17:49] LABS: HEMATOCRIT 30.7 % (36.0-47.0); HEMOGLOBIN 9.5 g/dl (12.0-15.5); MEAN CORPUSCULAR HEMOGLOBIN 28.8 pg (27.0-33.0); MEAN CORPUSCULAR HGB CONC 30.9 g/dl (32.0-36.5); PLATELET COUNT, AUTOMATED 274 10^3/uL (150-450); WHITE BLOOD COUNT 6.1 10^3/uL (4.0-10.0)
[2022-07-13 18:08] LABS: RSV AMPLIFICATION NEGATIVE (NEGATIVE)
[2022-07-13 18:16] LABS: ALBUMIN 2.6 GM/DL (3.2-5.2); BILIRUBIN,DIRECT 0.3 MG/DL (0.0-0.2); BILIRUBIN,TOTAL 0.6 MG/DL (0.2-1.0); CREATININE FOR GFR 7.43 MG/DL (0.55-1.30); GLOMERULAR FILTRATION RATE 5.6 (>32); MAGNESIUM LEVEL 1.7 MG/DL (1.8-2.4); PHOSPHORUS LEVEL 4.4 MG/DL (2.5-4.9); POTASSIUM SERUM 4.7 MEQ/L (3.5-5.1); TOTAL PROTEIN 6.2 GM/DL (6.4-8.2)
[2022-07-13] MEDS ORDERED: NS 1,000 ML IV SCH (18:45)
[2022-07-13] MEDS ORDERED: MAG SULF 1GM/100ML (MAG RUN) 1 GM in IV 1 EA IV ONE (18:45)
[2022-07-13 19:01] LABS: INR 1.56
[2022-07-13 19:02] LABS: PARTIAL THROMBOPLASTIN TIME 29.1 SECONDS (24.8-34.2)
[2022-07-13] MEDS ORDERED: ALBU8.5H INH (19:59)
[2022-07-13] MEDS ORDERED: COSE1INJ INJ (19:59)
[2022-07-13] MEDS ORDERED: ELIQ2.5T PO (19:59)
[2022-07-13] MEDS ORDERED: OMEP-173 PO (19:59)
[2022-07-13] MEDS ORDERED: ONDA-83 PO (19:59)
[2022-07-13] MEDS ORDERED: FLON1SPR NARES (19:59)
[2022-07-13] MEDS ORDERED: HOME MED LIST COMPLETE! XX SCH (20:00)
[2022-07-13] MEDS ORDERED: ONDANSETRON 4MG TAB PO PRN (20:05)
[2022-07-13] MEDS ORDERED: ALBUTEROL 90 MCG/ACT 8GM HFA INHALER INH PRN (20:05)
[2022-07-13] MEDS ORDERED: FLUTICASONE PROP 0.05% NASAL SPRAY 16 GM (FLONASE) NARES PRN (20:05)
[2022-07-13] MEDS ORDERED: NS 1,000 ML IV ONE (20:25)
[2022-07-13] MEDS ORDERED: FERROUS SULFATE 325MG TAB PO SCH (21:00)
[2022-07-13] MEDS: METOPROLOL TART 50 MG TAB PO SCH (22:38)
[2022-07-13 23:00] VITALS: BP 90/50
[2022-07-13] MEDS: APIXABAN 2.5 MG TAB (ELIQUIS) PO SCH (23:39)
[2022-07-13] MEDS: CETIRIZINE (ZyrTEC) 10 MG TAB PO SCH (23:39)
[2022-07-14 04:00] VITALS: BP 96/50
[2022-07-14] MEDS: LEVOTHYROXINE 88MCG TABLET (0.088 MG) PO SCH (05:24)
[2022-07-14 06:03] LABS: HEMOGLOBIN 7.9 g/dl (12.0-15.5); MEAN CORPUSCULAR HEMOGLOBIN 28.9 pg (27.0-33.0); MEAN CORPUSCULAR HGB CONC 31.6 g/dl (32.0-36.5); MEAN CORPUSCULAR VOLUME 91.6 fl (80.0-96.0); PLATELET COUNT, AUTOMATED 238 10^3/uL (150-450); RED BLOOD COUNT 2.73 10^6/uL (4.00-5.40); WHITE BLOOD COUNT 5.1 10^3/uL (4.0-10.0)
[2022-07-14 06:37] LABS: APPEARANCE, URINE MANUAL CLEAR (CLEAR); COLOR, URINE MANUAL YELLOW (YELLOW)
[2022-07-14 06:38] LABS: BILIRUBIN, URINE MANUAL NEGATIVE (NEGATIVE); BLOOD URINE MANUAL NEGATIVE (NEGATIVE); GLUCOSE, URINE (UA) MANUAL NEGATIVE (NEGATIVE); KETONE, URINE MANUAL NEGATIVE (NEGATIVE); LEUKOCYTE ESTERASE, URINE MAN NEGATIVE (NEGATIVE); NITRITE, URINE MANUAL NEGATIVE (NEGATIVE); PROTEIN, URINE MANUAL NEGATIVE (NEGATIVE); SPECIFIC GRAVITY,URINE MANUAL 1.015 (1.002-1.035); UROBILINOGEN, URINE MANUAL NORMAL (NORMAL)
[2022-07-14 06:46] LABS: GLOMERULAR FILTRATION RATE 7.1 (>32); MAGNESIUM LEVEL 2.1 MG/DL (1.8-2.4); POTASSIUM SERUM 4.4 MEQ/L (3.5-5.1)
[2022-07-14 07:22] LABS: CREATININE,RANDOM URINE 53.4 MG/DL; TOTAL PROTEIN,RANDOM URINE 7.4 MG/DL (0.0-12.0)
[2022-07-14 08:00] VITALS: BP 100/57
[2022-07-14] MEDS: METOPROLOL TART 50 MG TAB PO SCH ×2 (09:00→20:40)
[2022-07-14] MEDS ORDERED: FLUBLOK(EGG FREE)(QUAD)INFLUENZA VACC 0.5ML SYRINGE 18YRS & OLDER IM.IMMUN ONE (09:00)
[2022-07-14] MEDS: OMEPRAZOLE 20MG CAP PO SCH (10:42)
[2022-07-14] MEDS: APIXABAN 2.5 MG TAB (ELIQUIS) PO SCH ×2 (10:42→20:40)
[2022-07-14] MEDS: EZETIMIBE 10MG TABLET (ZETIA) PO SCH (10:42)
[2022-07-14 12:00] VITALS: BP 90/53
[2022-07-14] MEDS: SODIUM BICARBONATE 75 MEQ in NS 0.45% 1,000 ML IV SCH (13:55)
[2022-07-14 16:00] VITALS: BP 88/51
[2022-07-14 20:00] VITALS: BP 92/60
[2022-07-14] MEDS: CETIRIZINE (ZyrTEC) 10 MG TAB PO SCH (20:40)
[2022-07-15] VITALS (17 sets, daily range): BP systolic 80–123; BP diastolic 28–72
[2022-07-15] MEDS: SODIUM BICARBONATE 75 MEQ in NS 0.45% 1,000 ML IV SCH (00:09)
[2022-07-15 04:52] LABS: HEMATOCRIT 23.9 % (36.0-47.0); HEMOGLOBIN 7.6 g/dl (12.0-15.5); MEAN CORPUSCULAR HEMOGLOBIN 28.7 pg (27.0-33.0); MEAN CORPUSCULAR HGB CONC 31.8 g/dl (32.0-36.5); MEAN CORPUSCULAR VOLUME 90.2 fl (80.0-96.0); PLATELET COUNT, AUTOMATED 234 10^3/uL (150-450); RED BLOOD COUNT 2.65 10^6/uL (4.00-5.40); WHITE BLOOD COUNT 5.1 10^3/uL (4.0-10.0)
[2022-07-15] MEDS: LEVOTHYROXINE 88MCG TABLET (0.088 MG) PO SCH (05:03)
[2022-07-15 05:28] LABS: CALCIUM LEVEL 7.6 MG/DL (8.8-10.2); CREATININE FOR GFR 4.37 MG/DL (0.55-1.30); GLOMERULAR FILTRATION RATE 10.3 (>32); MAGNESIUM LEVEL 1.7 MG/DL (1.8-2.4); PERCENT SATURATION 50.9 % (13.2-45.0); PHOSPHORUS LEVEL 2.4 MG/DL (2.5-4.9); POTASSIUM SERUM 3.7 MEQ/L (3.5-5.1)
[2022-07-15] MEDS ORDERED: MAG SULF 1GM/100ML (MAG RUN) 1 GM in IV 1 EA IV ONE (09:00)
[2022-07-15] MEDS: METOPROLOL TART 50 MG TAB PO SCH ×2 (09:00→21:00)
[2022-07-15] MEDS ORDERED: LACTATED RINGER'S 1000 ML IV ONE (09:25)
[2022-07-15 09:35] LABS: CLOSTRIDIUM DIFFICILE PCR NEGATIVE (NEGATIVE)
[2022-07-15] MEDS: APIXABAN 2.5 MG TAB (ELIQUIS) PO SCH ×2 (09:50→21:05)
[2022-07-15] MEDS: EZETIMIBE 10MG TABLET (ZETIA) PO SCH (09:50)
[2022-07-15] MEDS: OMEPRAZOLE 20MG CAP PO SCH (09:50)
[2022-07-15] MEDS: MIDODRINE 5 MG TAB PO SCH ×3 (09:51→16:11)
[2022-07-15] MEDS ORDERED: LR 1,000 ML IV SCH (10:00)
[2022-07-15 19:39] LABS: HEMATOCRIT 28.8 % (36.0-47.0); HEMOGLOBIN 9.1 g/dl (12.0-15.5)
[2022-07-15] MEDS: CETIRIZINE (ZyrTEC) 10 MG TAB PO SCH (21:05)
[2022-07-16] VITALS (11 sets, daily range): BP systolic 100–160; BP diastolic 53–80
[2022-07-16] MEDS: LEVOTHYROXINE 88MCG TABLET (0.088 MG) PO SCH (06:10)
[2022-07-16 07:03] LABS: HEMATOCRIT 29.6 % (36.0-47.0); HEMOGLOBIN 9.6 g/dl (12.0-15.5); MEAN CORPUSCULAR HEMOGLOBIN 28.6 pg (27.0-33.0); MEAN CORPUSCULAR HGB CONC 32.4 g/dl (32.0-36.5); MEAN CORPUSCULAR VOLUME 88.1 fl (80.0-96.0); PLATELET COUNT, AUTOMATED 213 10^3/uL (150-450); RED BLOOD COUNT 3.36 10^6/uL (4.00-5.40); WHITE BLOOD COUNT 5.6 10^3/uL (4.0-10.0)
[2022-07-16 07:34] LABS: CALCIUM LEVEL 8.4 MG/DL (8.8-10.2); CREATININE FOR GFR 2.86 MG/DL (0.55-1.30); GLOMERULAR FILTRATION RATE 16.8 (>32); MAGNESIUM LEVEL 1.7 MG/DL (1.8-2.4); POTASSIUM SERUM 3.9 MEQ/L (3.5-5.1)
[2022-07-16] MEDS ORDERED: MAG SULF 1GM/100ML (MAG RUN) 1 GM in IV 1 EA IV ONE (07:50)
[2022-07-16] MEDS: MIDODRINE 5 MG TAB PO SCH ×3 (08:00→16:00)
[2022-07-16] MEDS: EZETIMIBE 10MG TABLET (ZETIA) PO SCH (09:00)
[2022-07-16] MEDS: OMEPRAZOLE 20MG CAP PO SCH (09:00)
[2022-07-16] MEDS: METOPROLOL TART 50 MG TAB PO SCH ×2 (09:00→20:54)
[2022-07-16] MEDS: APIXABAN 2.5 MG TAB (ELIQUIS) PO SCH ×2 (09:00→20:54)
[2022-07-16] MEDS ORDERED: DEXTROSE 50% 50 ML SYRINGE IV PRN (16:40)
[2022-07-16] MEDS ORDERED: GLUCAGON INJ 1MG VIAL SC PRN (16:40)
[2022-07-16] MEDS ORDERED: GLUCOSE 4GM CHEW TABLET PO PRN (16:40)
[2022-07-16] MEDS: D5W/0.45% SODIUM CHLORIDE 1,000 ML IV SCH (17:11)
[2022-07-16] MEDS: CETIRIZINE (ZyrTEC) 10 MG TAB PO SCH (20:54)
[2022-07-17] VITALS (22 sets, daily range): BP systolic 66–127; BP diastolic 42–77
[2022-07-17 05:13] LABS: HEMATOCRIT 28.5 % (36.0-47.0); HEMOGLOBIN 9.3 g/dl (12.0-15.5); MEAN CORPUSCULAR HEMOGLOBIN 28.4 pg (27.0-33.0); MEAN CORPUSCULAR HGB CONC 32.6 g/dl (32.0-36.5); MEAN CORPUSCULAR VOLUME 86.9 fl (80.0-96.0); PLATELET COUNT, AUTOMATED 205 10^3/uL (150-450); RED BLOOD COUNT 3.28 10^6/uL (4.00-5.40)
[2022-07-17] MEDS: LEVOTHYROXINE 88MCG TABLET (0.088 MG) PO SCH (05:27)
[2022-07-17] MEDS: D5W/0.45% SODIUM CHLORIDE 1,000 ML IV SCH ×2 (05:27→21:33)
[2022-07-17 05:37] LABS: CALCIUM LEVEL 8.3 MG/DL (8.8-10.2); CREATININE FOR GFR 2.11 MG/DL (0.55-1.30); GLOMERULAR FILTRATION RATE 23.9 (>32); MAGNESIUM LEVEL 1.7 MG/DL (1.8-2.4); POTASSIUM SERUM 3.3 MEQ/L (3.5-5.1)
[2022-07-17] MEDS ORDERED: POTASSIUM CHLORIDE 10MEQ SR TABLET PO ONE (07:30)
[2022-07-17] MEDS ORDERED: METOPROLOL TART 25 MG TABLET PO SCH ×2 (09:00→21:00)
[2022-07-17] MEDS ORDERED: MAGNESIUM OXIDE 400MG TAB (MAG-OX) PO SCH (09:00)
[2022-07-17] MEDS ORDERED: VARIBAR NECTAR 40% w/v 240ML SUSP BTL As Ordered ONE (09:27)
[2022-07-17] MEDS ORDERED: E-Z-PAQUE 96% w/w SUSP 176GM BTL As Ordered ONE (09:27)
[2022-07-17] MEDS ORDERED: BARIUM SULFATE 700 MG TABLET (E-Z-DISK) As Ordered ONE (09:27)
[2022-07-17] MEDS ORDERED: VARIBAR PUDDING 40% w/v 230ML TUBE As Ordered ONE (09:27)
[2022-07-17] MEDS: OMEPRAZOLE 20MG CAP PO SCH (11:45)
[2022-07-17] MEDS: APIXABAN 2.5 MG TAB (ELIQUIS) PO SCH ×2 (11:47→21:33)
[2022-07-17] MEDS: EZETIMIBE 10MG TABLET (ZETIA) PO SCH (11:47)
[2022-07-17] MEDS: ACETAMINOPHEN TAB 650MG DOSE (2X325MG) PO PRN (11:48)
[2022-07-17] MEDS ORDERED: NS 1,000 ML IV SCH (12:55)
[2022-07-17] MEDS ORDERED: MAG SULF 1GM/100ML (MAG RUN) 1 GM in IV 1 EA IV ONE (12:55)
[2022-07-17] MEDS ORDERED: NS 1,000 ML IV ONE ×2 (15:30→17:20)
[2022-07-17] MEDS ORDERED: MIDODRINE 5 MG TAB PO SCH (16:00)
[2022-07-17 19:01] LABS: CK-MB VALUE MASS < 1.0 NG/ML (<3.6); CPK CREATINE PHOSPHOKINASE 74 U/L (26-192); MB/CK RELATIVE INDEX 1.35 (< OR =4)
[2022-07-17 19:42] LABS: HEMATOCRIT 25.1 % (36.0-47.0); HEMOGLOBIN 7.8 g/dl (12.0-15.5); MEAN CORPUSCULAR HEMOGLOBIN 28.4 pg (27.0-33.0); MEAN CORPUSCULAR HGB CONC 31.1 g/dl (32.0-36.5); MEAN CORPUSCULAR VOLUME 91.3 fl (80.0-96.0); PLATELET COUNT, AUTOMATED 200 10^3/uL (150-450); RED BLOOD COUNT 2.75 10^6/uL (4.00-5.40)
[2022-07-17 20:13] LABS: CALCIUM LEVEL 7.3 MG/DL (8.8-10.2); CREATININE FOR GFR 1.96 MG/DL (0.55-1.30); MAGNESIUM LEVEL 1.8 MG/DL (1.8-2.4); PHOSPHORUS LEVEL 0.8 MG/DL (2.5-4.9); POTASSIUM SERUM 3.8 MEQ/L (3.5-5.1)
[2022-07-17] MEDS: CETIRIZINE (ZyrTEC) 10 MG TAB PO SCH (21:34)
[2022-07-17] MEDS: MAGNESIUM OXIDE 400MG TAB (MAG-OX) PO SCH (21:34)
[2022-07-17] MEDS ORDERED: METOPROLOL 5 MG/5 ML VIAL IV STA (22:23)
[2022-07-18] VITALS (17 sets, daily range): BP systolic 84–131; BP diastolic 52–71
[2022-07-18 00:31] LABS: HEMATOCRIT 30.9 % (36.0-47.0); HEMOGLOBIN 9.7 g/dl (12.0-15.5); MEAN CORPUSCULAR HEMOGLOBIN 29.6 pg (27.0-33.0); MEAN CORPUSCULAR HGB CONC 31.4 g/dl (32.0-36.5); MEAN CORPUSCULAR VOLUME 94.2 fl (80.0-96.0); PLATELET COUNT, AUTOMATED 186 10^3/uL (150-450); RED BLOOD COUNT 3.28 10^6/uL (4.00-5.40); WHITE BLOOD COUNT 4.8 10^3/uL (4.0-10.0)
[2022-07-18 01:17] LABS: ALBUMIN 2.1 GM/DL (3.2-5.2); CALCIUM LEVEL 7.2 MG/DL (8.8-10.2); CREATININE FOR GFR 1.78 MG/DL (0.55-1.30); POTASSIUM SERUM 4.3 MEQ/L (3.5-5.1); TOTAL PROTEIN 4.9 GM/DL (6.4-8.2)
[2022-07-18] MEDS: ACETAMINOPHEN TAB 650MG DOSE (2X325MG) PO PRN ×2 (01:39→17:19)
[2022-07-18 05:57] LABS: HEMATOCRIT 28.3 % (36.0-47.0); MEAN CORPUSCULAR HEMOGLOBIN 28.8 pg (27.0-33.0); MEAN CORPUSCULAR HGB CONC 31.8 g/dl (32.0-36.5); MEAN CORPUSCULAR VOLUME 90.7 fl (80.0-96.0); PLATELET COUNT, AUTOMATED 175 10^3/uL (150-450); RED BLOOD COUNT 3.12 10^6/uL (4.00-5.40); WHITE BLOOD COUNT 4.3 10^3/uL (4.0-10.0)
[2022-07-18] MEDS: LEVOTHYROXINE 75MCG TABLET (0.075MG) PO SCH (06:28)
[2022-07-18 06:29] LABS: CALCIUM LEVEL 7.2 MG/DL (8.8-10.2); CREATININE FOR GFR 1.5 MG/DL (0.55-1.30); GLOMERULAR FILTRATION RATE 35.4 (>32); MAGNESIUM LEVEL 1.6 MG/DL (1.8-2.4); POTASSIUM SERUM 4.1 MEQ/L (3.5-5.1)
[2022-07-18] MEDS: D5W/0.45% SODIUM CHLORIDE 1,000 ML IV SCH ×2 (06:32→16:28)
[2022-07-18] MEDS ORDERED: METOPROLOL 5 MG/5 ML VIAL IV STA (08:53)
[2022-07-18] MEDS ORDERED: MAG SULF 1GM/100ML (MAG RUN) 1 GM in IV 1 EA IV ONE ×2 (09:05→16:30)
[2022-07-18] MEDS: EZETIMIBE 10MG TABLET (ZETIA) PO SCH (09:31)
[2022-07-18] MEDS: METOPROLOL TART 12.5 MG PER 1/2 TAB PO SCH ×3 (09:32→20:32)
[2022-07-18] MEDS: MAGNESIUM OXIDE 400MG TAB (MAG-OX) PO SCH ×2 (09:32→20:32)
[2022-07-18] MEDS: APIXABAN 2.5 MG TAB (ELIQUIS) PO SCH ×2 (09:33→20:32)
[2022-07-18] MEDS: OMEPRAZOLE 20MG CAP PO SCH (09:33)
[2022-07-18 09:41] LABS: CORTISOL AM 6.5 UG/DL (4.3-22.4)
[2022-07-18] MEDS: MAG SULF 1GM/100ML (MAG RUN) 1 GM in IV 1 EA IV ONE ×2 (09:55→09:57)
[2022-07-18] MEDS ORDERED: LR 1,000 ML IV ONE (13:20)
[2022-07-18] MEDS: CETIRIZINE (ZyrTEC) 10 MG TAB PO SCH (20:32)
[2022-07-19] VITALS (10 sets, daily range): BP systolic 86–138; BP diastolic 50–60
[2022-07-19] MEDS: D5W/0.45% SODIUM CHLORIDE 1,000 ML IV SCH (03:29)
[2022-07-19 05:29] LABS: HEMATOCRIT 28.5 % (36.0-47.0); HEMOGLOBIN 9.2 g/dl (12.0-15.5); MEAN CORPUSCULAR HEMOGLOBIN 29.5 pg (27.0-33.0); MEAN CORPUSCULAR HGB CONC 32.3 g/dl (32.0-36.5); MEAN CORPUSCULAR VOLUME 91.3 fl (80.0-96.0); PLATELET COUNT, AUTOMATED 181 10^3/uL (150-450); RED BLOOD COUNT 3.12 10^6/uL (4.00-5.40); WHITE BLOOD COUNT 3.6 10^3/uL (4.0-10.0)
[2022-07-19 05:53] LABS: CALCIUM LEVEL 7.1 MG/DL (8.8-10.2); CREATININE FOR GFR 1.25 MG/DL (0.55-1.30); GLOMERULAR FILTRATION RATE 43.7 (>32); MAGNESIUM LEVEL 1.6 MG/DL (1.8-2.4); POTASSIUM SERUM 4.6 MEQ/L (3.5-5.1)
[2022-07-19] MEDS: LEVOTHYROXINE 75MCG TABLET (0.075MG) PO SCH (06:36)
[2022-07-19] MEDS ORDERED: MAG SULF 1GM/100ML (MAG RUN) 1 GM in IV 1 EA IV ONE ×2 (08:00→12:20)
[2022-07-19] MEDS: APIXABAN 2.5 MG TAB (ELIQUIS) PO SCH ×2 (08:07→20:01)
[2022-07-19] MEDS: METOPROLOL TART 12.5 MG PER 1/2 TAB PO SCH ×3 (08:07→20:01)
[2022-07-19] MEDS: MAGNESIUM OXIDE 400MG TAB (MAG-OX) PO SCH ×2 (08:07→20:01)
[2022-07-19] MEDS: OMEPRAZOLE 20MG CAP PO SCH (08:07)
[2022-07-19] MEDS: EZETIMIBE 10MG TABLET (ZETIA) PO SCH (08:07)
[2022-07-19] MEDS ORDERED: MIRALAX *UNIT DOSE* 17GM PACKET PO PRN (12:45)
[2022-07-19] MEDS ORDERED: MAGNESIUM OXIDE 400MG TAB (MAG-OX) PO SCH (16:00)
[2022-07-19 16:48] LABS: HEMATOCRIT 33.7 % (36.0-47.0); HEMOGLOBIN 10.7 g/dl (12.0-15.5)
[2022-07-19] MEDS: LOPERAMIDE 2 MG CAPLET PO PRN (20:01)
[2022-07-19] MEDS: CETIRIZINE (ZyrTEC) 10 MG TAB PO SCH (20:01)
[2022-07-19] MEDS ORDERED: DOCUSATE SODIUM 100MG CAPSULE PO SCH (21:00)
[2022-07-20] VITALS (27 sets, daily range): BP systolic 64–121; BP diastolic 42–85
[2022-07-20] MEDS ORDERED: SODIUM CHLORIDE 0.9% 1000ML IV ONE ×2 (04:45→05:00)
[2022-07-20 05:01] LABS: HEMATOCRIT 31.6 % (36.0-47.0); HEMOGLOBIN 10.2 g/dl (12.0-15.5); MEAN CORPUSCULAR HEMOGLOBIN 29.1 pg (27.0-33.0); MEAN CORPUSCULAR HGB CONC 32.3 g/dl (32.0-36.5); MEAN CORPUSCULAR VOLUME 90.3 fl (80.0-96.0); PLATELET COUNT, AUTOMATED 189 10^3/uL (150-450); WHITE BLOOD COUNT 5.9 10^3/uL (4.0-10.0)
[2022-07-20] MEDS: LEVOTHYROXINE 75MCG TABLET (0.075MG) PO SCH (05:01)
[2022-07-20] MEDS: cefTRIAXone SOD 1 GM in D5W MINI-BAG PLUS 50 ML IV SCH (06:10)
[2022-07-20 06:16] LABS: ALKALINE PHOSPHATASE 65 U/L (45-117); ALT/SGPT < 6 U/L (12-78); AST/SGOT 14 U/L (7-37); BLOOD UREA NITROGEN 16 MG/DL (7-18); CALCIUM LEVEL 7.5 MG/DL (8.8-10.2); CARBON DIOXIDE LEVEL 18 MEQ/L (21-32); CHLORIDE LEVEL 111 MEQ/L (98-107); GLOMERULAR FILTRATION RATE 41.7 (>32); GLUCOSE, FASTING 86 MG/DL (70-100); MAGNESIUM LEVEL 1.9 MG/DL (1.8-2.4); POTASSIUM SERUM 5.1 MEQ/L (3.5-5.1); SODIUM LEVEL 137 MEQ/L (136-145); TOTAL PROTEIN 4.5 GM/DL (6.4-8.2)
[2022-07-20] MEDS: MAGNESIUM OXIDE 400MG TAB (MAG-OX) PO SCH ×2 (08:49→20:20)
[2022-07-20] MEDS: OMEPRAZOLE 20MG CAP PO SCH (08:49)
[2022-07-20] MEDS: EZETIMIBE 10MG TABLET (ZETIA) PO SCH (08:49)
[2022-07-20] MEDS: METOPROLOL TART 12.5 MG PER 1/2 TAB PO SCH (09:00)
[2022-07-20] MEDS: METOPROLOL TART 50 MG TAB PO SCH ×2 (09:00→20:05)
[2022-07-20] MEDS ORDERED: NS 250 ML IV ONE (09:10)
[2022-07-20] MEDS: D5W/0.45% SODIUM CHLORIDE 1,000 ML IV SCH ×2 (10:14→20:20)
[2022-07-20] MEDS ORDERED: LIDOCAINE 1% MDV 20ML VIAL As Ordered ONE (10:43)
[2022-07-20] MEDS ORDERED: AMIODARONE HCL 150 MG in IV 1 EA IV STA (11:17)
[2022-07-20] MEDS ORDERED: AMIODARONE HCL 150 MG/100 ML PREMIXED BAG (NEXTERONE) As Ordered ONE (11:20)
[2022-07-20] MEDS ORDERED: ADENOSINE 6MG/2ML INJECTION (J0153) IV STA ×3 (11:42→16:54)
[2022-07-20] MEDS ORDERED: ADENOSINE 6MG/2ML INJECTION (J0153) As Ordered ONE (11:43)
[2022-07-20 13:15] LABS: HEMATOCRIT 31.8 % (36.0-47.0); MEAN CORPUSCULAR HEMOGLOBIN 29.1 pg (27.0-33.0); MEAN CORPUSCULAR HGB CONC 31.4 g/dl (32.0-36.5); MEAN CORPUSCULAR VOLUME 92.4 fl (80.0-96.0); PLATELET COUNT, AUTOMATED 173 10^3/uL (150-450); RED BLOOD COUNT 3.44 10^6/uL (4.00-5.40); WHITE BLOOD COUNT 8.5 10^3/uL (4.0-10.0)
[2022-07-20] MEDS: AMIODARONE 200 MG TAB (PACERONE) PO SCH ×2 (13:20→20:19)
[2022-07-20 13:50] LABS: ALBUMIN 1.9 GM/DL (3.2-5.2); BILIRUBIN,TOTAL 0.6 MG/DL (0.2-1.0); CALCIUM LEVEL 7.3 MG/DL (8.8-10.2); CK-MB VALUE MASS 1.2 NG/ML (<3.6); CREATININE FOR GFR 1.35 MG/DL (0.55-1.30); MB/CK RELATIVE INDEX 1.13 (< OR =4); POTASSIUM SERUM 4.9 MEQ/L (3.5-5.1); TOTAL PROTEIN 4.7 GM/DL (6.4-8.2)
[2022-07-20] MEDS: NYSTATIN 100,000 UNITS/GM TOPICAL PWD 15 GM TOP SCH ×2 (13:50→20:20)
[2022-07-20] MEDS ORDERED: SODIUM CHLORIDE 0.9% INJ 10 ML SYR IV PRN (15:20)
[2022-07-20] MEDS: ACETAMINOPHEN TAB 650MG DOSE (2X325MG) PO PRN ×2 (16:26→21:51)
[2022-07-20] MEDS: SODIUM CHLORIDE 0.9% INJ 10 ML SYR IV SCH (18:00)
[2022-07-20] MEDS: CETIRIZINE (ZyrTEC) 10 MG TAB PO SCH (20:19)
[2022-07-20] MEDS ORDERED: NS 1,000 ML IV ONE (20:25)
[2022-07-21] VITALS (51 sets, daily range): BP systolic 75–132; BP diastolic 37–69
[2022-07-21] MEDS ORDERED: SODIUM CHLORIDE 0.9% 1000ML IV ONE (00:45)
[2022-07-21] MEDS ORDERED: NOREPINEPHRINE 4MG IN D5 250ML 4 MG in IV 1 EA IV SCH ×4 (01:25→01:26)
[2022-07-21 05:06] LABS: HEMATOCRIT 26.5 % (36.0-47.0); HEMOGLOBIN 8.5 g/dl (12.0-15.5); MEAN CORPUSCULAR HEMOGLOBIN 29.1 pg (27.0-33.0); MEAN CORPUSCULAR HGB CONC 32.1 g/dl (32.0-36.5); MEAN CORPUSCULAR VOLUME 90.8 fl (80.0-96.0); PLATELET COUNT, AUTOMATED 156 10^3/uL (150-450); RED BLOOD COUNT 2.92 10^6/uL (4.00-5.40); WHITE BLOOD COUNT 4.4 10^3/uL (4.0-10.0)
[2022-07-21] MEDS: cefTRIAXone SOD 1 GM in D5W MINI-BAG PLUS 50 ML IV SCH (05:14)
[2022-07-21] MEDS: LEVOTHYROXINE 75MCG TABLET (0.075MG) PO SCH (05:15)
[2022-07-21] MEDS: SODIUM CHLORIDE 0.9% INJ 10 ML SYR IV SCH ×2 (05:15→18:40)
[2022-07-21 05:49] LABS: ALBUMIN 1.7 GM/DL (3.2-5.2); BILIRUBIN,TOTAL 0.4 MG/DL (0.2-1.0); CALCIUM LEVEL 6.7 MG/DL (8.8-10.2); CREATININE FOR GFR 1.12 MG/DL (0.55-1.30); GLOMERULAR FILTRATION RATE 49.6 (>32); MAGNESIUM LEVEL 1.6 MG/DL (1.8-2.4); POTASSIUM SERUM 3.9 MEQ/L (3.5-5.1)
[2022-07-21] MEDS ORDERED: MAG SULF 1GM/100ML (MAG RUN) 1 GM in IV 1 EA IV ONE (08:00)
[2022-07-21] MEDS: OMEPRAZOLE 20MG CAP PO SCH (08:25)
[2022-07-21] MEDS: METOPROLOL TART 50 MG TAB PO SCH ×2 (08:25→09:39)
[2022-07-21] MEDS: AMIODARONE 200 MG TAB (PACERONE) PO SCH ×2 (08:25→20:53)
[2022-07-21] MEDS: NYSTATIN 100,000 UNITS/GM TOPICAL PWD 15 GM TOP SCH ×2 (08:26→20:54)
[2022-07-21] MEDS: EZETIMIBE 10MG TABLET (ZETIA) PO SCH (08:26)
[2022-07-21] MEDS: MAGNESIUM OXIDE 400MG TAB (MAG-OX) PO SCH ×2 (08:26→20:53)
[2022-07-21] MEDS ORDERED: CALCIUM GLUCONATE 1,000 MG in D5W MINI-BAG PLUS 100 ML IV ONE (09:00)
[2022-07-21] MEDS ORDERED: ADENOSINE 6MG/2ML INJECTION (J0153) IV STA (09:51)
[2022-07-21] MEDS: DIGOXIN INJ 0.5 MG/2 ML AMP IV SCH ×4 (10:25→23:10)
[2022-07-21] MEDS ORDERED: SODIUM PHOSPHATE INJ 30 MMOL in D5W 500 ML IV ONE (17:00)
[2022-07-21] MEDS: CETIRIZINE (ZyrTEC) 10 MG TAB PO SCH (20:53)
[2022-07-21] MEDS: METOPROLOL TART 12.5 MG PER 1/2 TAB PO SCH (20:54)
[2022-07-21] MEDS ORDERED: METOPROLOL TART 25 MG TABLET PO SCH (21:00)
[2022-07-21 21:39] LABS: MAGNESIUM LEVEL 1.8 MG/DL (1.8-2.4); PHOSPHORUS LEVEL 3.5 MG/DL (2.5-4.9)
[2022-07-22] VITALS (22 sets, daily range): BP systolic 84–126; BP diastolic 42–77
[2022-07-22] MEDS: SODIUM CHLORIDE 0.9% INJ 10 ML SYR IV SCH ×2 (05:16→18:49)
[2022-07-22] MEDS: cefTRIAXone SOD 1 GM in D5W MINI-BAG PLUS 50 ML IV SCH (05:16)
[2022-07-22 05:36] LABS: HEMATOCRIT 27.2 % (36.0-47.0); HEMOGLOBIN 8.7 g/dl (12.0-15.5); MEAN CORPUSCULAR HEMOGLOBIN 28.9 pg (27.0-33.0); MEAN CORPUSCULAR VOLUME 90.4 fl (80.0-96.0); PLATELET COUNT, AUTOMATED 157 10^3/uL (150-450); RED BLOOD COUNT 3.01 10^6/uL (4.00-5.40); WHITE BLOOD COUNT 5.1 10^3/uL (4.0-10.0)
[2022-07-22 06:20] LABS: ALBUMIN 1.7 GM/DL (3.2-5.2); BILIRUBIN,TOTAL 0.4 MG/DL (0.2-1.0); CALCIUM LEVEL 7.2 MG/DL (8.8-10.2); CREATININE FOR GFR 1.19 MG/DL (0.55-1.30); GLOMERULAR FILTRATION RATE 46.2 (>32); MAGNESIUM LEVEL 1.8 MG/DL (1.8-2.4); POTASSIUM SERUM 4.9 MEQ/L (3.5-5.1); TOTAL PROTEIN 3.9 GM/DL (6.4-8.2)
[2022-07-22] MEDS: MEROPENEM INJ 1 GM in IV 1 EA IV SCH ×2 (07:29→20:29)
[2022-07-22 07:40] LABS: PHOSPHORUS LEVEL 2.5 MG/DL (2.5-4.9)
[2022-07-22] MEDS: EZETIMIBE 10MG TABLET (ZETIA) PO SCH (09:43)
[2022-07-22] MEDS: DIGOXIN 0.25 MG TAB PO SCH (09:44)
[2022-07-22] MEDS: METOPROLOL TART 12.5 MG PER 1/2 TAB PO SCH ×2 (09:44→20:30)
[2022-07-22] MEDS: NYSTATIN 100,000 UNITS/GM TOPICAL PWD 15 GM TOP SCH ×2 (09:45→20:31)
[2022-07-22] MEDS: AMIODARONE 200 MG TAB (PACERONE) PO SCH ×2 (09:45→20:29)
[2022-07-22] MEDS: MAGNESIUM OXIDE 400MG TAB (MAG-OX) PO SCH ×2 (09:45→20:29)
[2022-07-22] MEDS: OMEPRAZOLE 20MG CAP PO SCH (09:45)
[2022-07-22] MEDS: LACTOBACILLUS ACIDOPHILUS CAP (BACID) PO SCH ×2 (14:56→18:48)
[2022-07-22] MEDS: K-PHOS NEUTRAL 250MG TABLET (SOD.PHOSPHATE/POT.PHOSPHATE) PO SCH ×2 (14:56→20:29)
[2022-07-22] MEDS: CETIRIZINE (ZyrTEC) 10 MG TAB PO SCH (20:29)
[2022-07-22] MEDS: ACETAMINOPHEN TAB 650MG DOSE (2X325MG) PO PRN (20:30)
[2022-07-23] VITALS (11 sets, daily range): BP systolic 85–127; BP diastolic 50–62
[2022-07-23 05:56] LABS: HEMATOCRIT 27.8 % (36.0-47.0); HEMOGLOBIN 8.7 g/dl (12.0-15.5); MEAN CORPUSCULAR HEMOGLOBIN 28.8 pg (27.0-33.0); MEAN CORPUSCULAR HGB CONC 31.3 g/dl (32.0-36.5); MEAN CORPUSCULAR VOLUME 92.1 fl (80.0-96.0); PLATELET COUNT, AUTOMATED 157 10^3/uL (150-450); RED BLOOD COUNT 3.02 10^6/uL (4.00-5.40); WHITE BLOOD COUNT 4.3 10^3/uL (4.0-10.0)
[2022-07-23] MEDS: LEVOTHYROXINE 75MCG TABLET (0.075MG) PO SCH (06:23)
[2022-07-23] MEDS: SODIUM CHLORIDE 0.9% INJ 10 ML SYR IV SCH ×2 (06:24→18:32)
[2022-07-23 06:32] LABS: ALBUMIN 1.7 GM/DL (3.2-5.2); BILIRUBIN,TOTAL 0.6 MG/DL (0.2-1.0); CALCIUM LEVEL 7.3 MG/DL (8.8-10.2); CREATININE FOR GFR 1.23 MG/DL (0.55-1.30); GLOMERULAR FILTRATION RATE 44.5 (>32); MAGNESIUM LEVEL 1.8 MG/DL (1.8-2.4); PHOSPHORUS LEVEL 2.3 MG/DL (2.5-4.9); TOTAL PROTEIN 4.1 GM/DL (6.4-8.2)
[2022-07-23] MEDS: MAGNESIUM OXIDE 400MG TAB (MAG-OX) PO SCH ×2 (08:22→20:14)
[2022-07-23] MEDS: AMIODARONE 200 MG TAB (PACERONE) PO SCH ×2 (08:22→20:14)
[2022-07-23] MEDS: LACTOBACILLUS ACIDOPHILUS CAP (BACID) PO SCH ×3 (08:22→18:31)
[2022-07-23] MEDS: OMEPRAZOLE 20MG CAP PO SCH (08:22)
[2022-07-23] MEDS: MEROPENEM INJ 1 GM in IV 1 EA IV SCH (08:22)
[2022-07-23] MEDS: EZETIMIBE 10MG TABLET (ZETIA) PO SCH (08:23)
[2022-07-23] MEDS: K-PHOS NEUTRAL 250MG TABLET (SOD.PHOSPHATE/POT.PHOSPHATE) PO SCH ×2 (08:23→20:15)
[2022-07-23] MEDS: METOPROLOL TART 12.5 MG PER 1/2 TAB PO SCH ×2 (08:33→20:06)
[2022-07-23] MEDS: DIGOXIN 0.25 MG TAB PO SCH (08:36)
[2022-07-23] MEDS: NYSTATIN 100,000 UNITS/GM TOPICAL PWD 15 GM TOP SCH ×2 (08:37→20:15)
[2022-07-23] MEDS ORDERED: ONDANSETRON 4MG 2ML VIAL IV PRN (09:45)
[2022-07-23] MEDS ORDERED: SODIUM PHOSPHATE INJ 20 MMOL in D5W 250 ML IV ONE (13:00)
[2022-07-23 17:21] LABS: CK-MB VALUE MASS 1.3 NG/ML (<3.6); MB/CK RELATIVE INDEX 2.13 (< OR =4)
[2022-07-23] MEDS: LevoFLOXacin 750 MG TABLET PO SCH (18:31)
[2022-07-23] MEDS ORDERED: FUROSEMIDE 40MG/4ML VIAL (J1940) IV ONE (20:00)
[2022-07-23] MEDS: APIXABAN 2.5 MG TAB (ELIQUIS) PO SCH (20:15)
[2022-07-23] MEDS: CETIRIZINE (ZyrTEC) 10 MG TAB PO SCH (20:15)
[2022-07-24] VITALS (7 sets, daily range): BP systolic 91–112; BP diastolic 50–70
[2022-07-24] MEDS: SODIUM CHLORIDE 0.9% INJ 10 ML SYR IV SCH ×2 (05:20→16:14)
[2022-07-24 05:46] LABS: HEMATOCRIT 25.4 % (36.0-47.0); HEMOGLOBIN 8.1 g/dl (12.0-15.5); MEAN CORPUSCULAR HEMOGLOBIN 29.3 pg (27.0-33.0); MEAN CORPUSCULAR HGB CONC 31.9 g/dl (32.0-36.5); PLATELET COUNT, AUTOMATED 150 10^3/uL (150-450); RED BLOOD COUNT 2.76 10^6/uL (4.00-5.40); WHITE BLOOD COUNT 3.8 10^3/uL (4.0-10.0)
[2022-07-24 08:16] LABS: ALBUMIN 1.7 GM/DL (3.2-5.2); ALKALINE PHOSPHATASE 63 U/L (45-117); ALT/SGPT 7 U/L (12-78); AST/SGOT 19 U/L (7-37); BILIRUBIN,TOTAL 0.4 MG/DL (0.2-1.0); BLOOD UREA NITROGEN 12 MG/DL (7-18); CALCIUM LEVEL 7.2 MG/DL (8.8-10.2); CARBON DIOXIDE LEVEL 19 MEQ/L (21-32); CHLORIDE LEVEL 111 MEQ/L (98-107); CREATININE FOR GFR 1.28 MG/DL (0.55-1.30); GLOMERULAR FILTRATION RATE 42.5 (>32); GLUCOSE, FASTING 76 MG/DL (70-100); MAGNESIUM LEVEL 1.5 MG/DL (1.8-2.4); POTASSIUM SERUM 5.2 MEQ/L (3.5-5.1); SODIUM LEVEL 138 MEQ/L (136-145); TOTAL PROTEIN 3.9 GM/DL (6.4-8.2)
[2022-07-24 08:47] LABS: DIGOXIN LEVEL > 5.0 NG/ML (0.5-2.0)
[2022-07-24] MEDS ORDERED: DIGOXIN 0.125 MG TAB PO SCH (09:00)
[2022-07-24] MEDS: EZETIMIBE 10MG TABLET (ZETIA) PO SCH (09:03)
[2022-07-24] MEDS: K-PHOS NEUTRAL 250MG TABLET (SOD.PHOSPHATE/POT.PHOSPHATE) PO SCH (09:03)
[2022-07-24] MEDS: NYSTATIN 100,000 UNITS/GM TOPICAL PWD 15 GM TOP SCH ×2 (09:04→20:15)
[2022-07-24] MEDS: APIXABAN 2.5 MG TAB (ELIQUIS) PO SCH ×2 (09:04→20:16)
[2022-07-24] MEDS: AMIODARONE 200 MG TAB (PACERONE) PO SCH ×2 (09:04→20:16)
[2022-07-24] MEDS: LACTOBACILLUS ACIDOPHILUS CAP (BACID) PO SCH ×3 (09:04→18:15)
[2022-07-24] MEDS: METOPROLOL TART 12.5 MG PER 1/2 TAB PO SCH ×2 (09:04→20:16)
[2022-07-24] MEDS: OMEPRAZOLE 20MG CAP PO SCH (09:04)
[2022-07-24] MEDS: MAGNESIUM OXIDE 400MG TAB (MAG-OX) PO SCH ×2 (09:04→20:16)
[2022-07-24] MEDS ORDERED: MAG SULF 1GM/100ML (MAG RUN) 1 GM in IV 1 EA IV ONE (11:00)
[2022-07-24] MEDS ORDERED: DIGOXIN IMMUNE FAB 40 MG IV ONE (11:25)
[2022-07-24] MEDS ORDERED: CALCIUM GLUCONATE 1,000 MG in D5W MINI-BAG PLUS 100 ML IV ONE (12:00)
[2022-07-24 17:05] LABS: POTASSIUM SERUM 5.3 MEQ/L (3.5-5.1)
[2022-07-24] MEDS: CETIRIZINE (ZyrTEC) 10 MG TAB PO SCH (20:16)
[2022-07-25] VITALS: BP 101/51
[2022-07-25 04:00] VITALS: BP 104/58
[2022-07-25 04:31] LABS: HEMATOCRIT 25.7 % (36.0-47.0); MEAN CORPUSCULAR HEMOGLOBIN 28.6 pg (27.0-33.0); MEAN CORPUSCULAR HGB CONC 31.1 g/dl (32.0-36.5); MEAN CORPUSCULAR VOLUME 91.8 fl (80.0-96.0); PLATELET COUNT, AUTOMATED 166 10^3/uL (150-450); WHITE BLOOD COUNT 4.6 10^3/uL (4.0-10.0)
[2022-07-25] MEDS: SODIUM CHLORIDE 0.9% INJ 10 ML SYR IV SCH ×2 (05:08→18:58)
[2022-07-25 05:33] LABS: CALCIUM LEVEL 7.8 MG/DL (8.8-10.2); CREATININE FOR GFR 1.39 MG/DL (0.55-1.30); DIGOXIN LEVEL 4.4 NG/ML (0.5-2.0); GLOMERULAR FILTRATION RATE 38.6 (>32); MAGNESIUM LEVEL 1.8 MG/DL (1.8-2.4); POTASSIUM SERUM 4.9 MEQ/L (3.5-5.1)
[2022-07-25 08:00] VITALS: BP 83/47
[2022-07-25] MEDS: LACTOBACILLUS ACIDOPHILUS CAP (BACID) PO SCH ×3 (08:50→18:58)
[2022-07-25] MEDS: AMIODARONE 200 MG TAB (PACERONE) PO SCH ×2 (08:50→20:11)
[2022-07-25] MEDS: MAGNESIUM OXIDE 400MG TAB (MAG-OX) PO SCH ×2 (08:50→20:11)
[2022-07-25] MEDS: EZETIMIBE 10MG TABLET (ZETIA) PO SCH (08:50)
[2022-07-25] MEDS: OMEPRAZOLE 20MG CAP PO SCH (08:50)
[2022-07-25] MEDS: APIXABAN 2.5 MG TAB (ELIQUIS) PO SCH ×2 (08:50→20:10)
[2022-07-25] MEDS: NYSTATIN 100,000 UNITS/GM TOPICAL PWD 15 GM TOP SCH ×2 (08:51→20:12)
[2022-07-25] MEDS: METOPROLOL TART 12.5 MG PER 1/2 TAB PO SCH ×2 (09:00→20:11)
[2022-07-25 10:00] VITALS: BP 87/48
[2022-07-25 16:30] VITALS: BP 93/55
[2022-07-25] MEDS: LevoFLOXacin 750 MG TABLET PO SCH (18:57)
[2022-07-25 20:00] VITALS: BP 90/44
[2022-07-25] MEDS: CETIRIZINE (ZyrTEC) 10 MG TAB PO SCH (20:10)
[2022-07-26] VITALS (12 sets, daily range): BP systolic 93–114; BP diastolic 51–62
[2022-07-26 04:35] LABS: HEMATOCRIT 25.1 % (36.0-47.0); MEAN CORPUSCULAR HGB CONC 31.9 g/dl (32.0-36.5); MEAN CORPUSCULAR VOLUME 90.9 fl (80.0-96.0); PLATELET COUNT, AUTOMATED 170 10^3/uL (150-450); RED BLOOD COUNT 2.76 10^6/uL (4.00-5.40); WHITE BLOOD COUNT 5.2 10^3/uL (4.0-10.0)
[2022-07-26 05:03] LABS: CALCIUM LEVEL 7.6 MG/DL (8.8-10.2); CREATININE FOR GFR 1.73 MG/DL (0.55-1.30); MAGNESIUM LEVEL 1.6 MG/DL (1.8-2.4); POTASSIUM SERUM 4.9 MEQ/L (3.5-5.1)
[2022-07-26] MEDS: SODIUM CHLORIDE 0.9% INJ 10 ML SYR IV SCH ×2 (05:05→17:25)
[2022-07-26] MEDS ORDERED: NS 1,000 ML IV SCH (07:10)
[2022-07-26 07:48] LABS: DIGOXIN LEVEL 3.8 NG/ML (0.5-2.0)
[2022-07-26] MEDS ORDERED: MAG SULF 1GM/100ML (MAG RUN) 1 GM in IV 1 EA IV ONE (08:00)
[2022-07-26] MEDS: AMIODARONE 200 MG TAB (PACERONE) PO SCH (09:46)
[2022-07-26] MEDS: OMEPRAZOLE 20MG CAP PO SCH (09:46)
[2022-07-26] MEDS: NYSTATIN 100,000 UNITS/GM TOPICAL PWD 15 GM TOP SCH ×2 (09:46→20:16)
[2022-07-26] MEDS: EZETIMIBE 10MG TABLET (ZETIA) PO SCH (09:47)
[2022-07-26] MEDS: MAGNESIUM OXIDE 400MG TAB (MAG-OX) PO SCH ×2 (09:47→20:15)
[2022-07-26] MEDS: APIXABAN 2.5 MG TAB (ELIQUIS) PO SCH (09:47)
[2022-07-26] MEDS: METOPROLOL TART 12.5 MG PER 1/2 TAB PO SCH (09:47)
[2022-07-26] MEDS: LACTOBACILLUS ACIDOPHILUS CAP (BACID) PO SCH ×3 (09:48→17:25)
[2022-07-26] MEDS: MIDODRINE 5 MG TAB PO SCH ×2 (11:40→17:25)
[2022-07-26] MEDS: FUROSEMIDE injection 250 MG in D5W 225 ML IV SCH (13:16)
[2022-07-26] MEDS ORDERED: DIGOXIN IMMUNE FAB 40 MG IV ONE (18:20)
[2022-07-26] MEDS ORDERED: DIGOXIN IMMUNE FAB IV SCH (19:30)
[2022-07-26] MEDS ORDERED: NS IV SCH (19:30)
[2022-07-26] MEDS: CETIRIZINE (ZyrTEC) 10 MG TAB PO SCH (20:15)
[2022-07-27] VITALS (8 sets, daily range): BP systolic 95–117; BP diastolic 46–65
[2022-07-27 04:20] LABS: HEMATOCRIT 25.4 % (36.0-47.0); HEMOGLOBIN 8.2 g/dl (12.0-15.5); MEAN CORPUSCULAR HEMOGLOBIN 29.4 pg (27.0-33.0); MEAN CORPUSCULAR HGB CONC 32.3 g/dl (32.0-36.5); PLATELET COUNT, AUTOMATED 193 10^3/uL (150-450); RED BLOOD COUNT 2.79 10^6/uL (4.00-5.40); WHITE BLOOD COUNT 6.7 10^3/uL (4.0-10.0)
[2022-07-27 04:49] LABS: CREATININE FOR GFR 1.74 MG/DL (0.55-1.30); GLOMERULAR FILTRATION RATE 29.8 (>32); MAGNESIUM LEVEL 1.9 MG/DL (1.8-2.4); POTASSIUM SERUM 4.6 MEQ/L (3.5-5.1)
[2022-07-27] MEDS: SODIUM CHLORIDE 0.9% INJ 10 ML SYR IV SCH ×2 (05:17→18:02)
[2022-07-27 07:49] LABS: DIGOXIN LEVEL 0.3 NG/ML (0.5-2.0)
[2022-07-27] MEDS: MAGNESIUM OXIDE 400MG TAB (MAG-OX) PO SCH ×2 (08:13→21:00)
[2022-07-27] MEDS: MIDODRINE 5 MG TAB PO SCH ×3 (08:13→15:46)
[2022-07-27] MEDS: LACTOBACILLUS ACIDOPHILUS CAP (BACID) PO SCH ×3 (08:13→17:59)
[2022-07-27] MEDS: EZETIMIBE 10MG TABLET (ZETIA) PO SCH (08:13)
[2022-07-27] MEDS: OMEPRAZOLE 20MG CAP PO SCH (08:13)
[2022-07-27] MEDS: NYSTATIN 100,000 UNITS/GM TOPICAL PWD 15 GM TOP SCH ×2 (08:17→21:57)
[2022-07-27] MEDS ORDERED: AMIODARONE 200 MG TAB (PACERONE) PO ONE (11:30)
[2022-07-27] MEDS: FUROSEMIDE injection 250 MG in D5W 225 ML IV SCH (15:55)
[2022-07-27] MEDS: ACETAMINOPHEN TAB 650MG DOSE (2X325MG) PO PRN (18:39)
[2022-07-27] MEDS: AMIODARONE 200 MG TAB (PACERONE) PO SCH (21:00)
[2022-07-27] MEDS: CETIRIZINE (ZyrTEC) 10 MG TAB PO SCH (21:57)
[2022-07-28] VITALS: BP 116/59
[2022-07-28 04:00] VITALS: BP 120/55
[2022-07-28] MEDS: SODIUM CHLORIDE 0.9% INJ 10 ML SYR IV SCH ×2 (05:09→17:30)
[2022-07-28 05:30] LABS: HEMATOCRIT 26.3 % (36.0-47.0); HEMOGLOBIN 8.4 g/dl (12.0-15.5); MEAN CORPUSCULAR HGB CONC 31.9 g/dl (32.0-36.5); MEAN CORPUSCULAR VOLUME 90.7 fl (80.0-96.0); PLATELET COUNT, AUTOMATED 210 10^3/uL (150-450); WHITE BLOOD COUNT 7.5 10^3/uL (4.0-10.0)
[2022-07-28 06:03] LABS: CALCIUM LEVEL 8.2 MG/DL (8.8-10.2); CREATININE FOR GFR 2.04 MG/DL (0.55-1.30); GLOMERULAR FILTRATION RATE 24.8 (>32); MAGNESIUM LEVEL 1.9 MG/DL (1.8-2.4); POTASSIUM SERUM 5.2 MEQ/L (3.5-5.1)
[2022-07-28 08:00] VITALS: BP 86/47
[2022-07-28] MEDS: EZETIMIBE 10MG TABLET (ZETIA) PO SCH (09:00)
[2022-07-28] MEDS: AMIODARONE 200 MG TAB (PACERONE) PO SCH ×2 (09:00→20:55)
[2022-07-28] MEDS: LACTOBACILLUS ACIDOPHILUS CAP (BACID) PO SCH ×3 (09:14→17:29)
[2022-07-28] MEDS: OMEPRAZOLE 20MG CAP PO SCH (09:14)
[2022-07-28] MEDS: MAGNESIUM OXIDE 400MG TAB (MAG-OX) PO SCH ×2 (09:15→20:55)
[2022-07-28 09:16] LABS: POTASSIUM SERUM 4.6 MEQ/L (3.5-5.1)
[2022-07-28] MEDS: MIDODRINE 5 MG TAB PO SCH ×3 (09:16→17:29)
[2022-07-28] MEDS: NYSTATIN 100,000 UNITS/GM TOPICAL PWD 15 GM TOP SCH ×2 (09:19→20:56)
[2022-07-28] MEDS ORDERED: COSYNTROPIN 0.25 MG/ML VIAL (J0834 PER 0.25MG) IV ONE (10:20)
[2022-07-28 12:00] VITALS: BP 94/44
[2022-07-28 16:00] VITALS: BP 98/54
[2022-07-28 20:00] VITALS: BP 109/55
[2022-07-28] MEDS: CETIRIZINE (ZyrTEC) 10 MG TAB PO SCH (20:55)
[2022-07-29] VITALS: BP 106/53
[2022-07-29 04:00] VITALS: BP 121/58
[2022-07-29 04:46] LABS: HEMATOCRIT 26.2 % (36.0-47.0); HEMOGLOBIN 8.4 g/dl (12.0-15.5); MEAN CORPUSCULAR HEMOGLOBIN 29.2 pg (27.0-33.0); MEAN CORPUSCULAR HGB CONC 32.1 g/dl (32.0-36.5); PLATELET COUNT, AUTOMATED 225 10^3/uL (150-450); RED BLOOD COUNT 2.88 10^6/uL (4.00-5.40); WHITE BLOOD COUNT 6.6 10^3/uL (4.0-10.0)
[2022-07-29 05:13] LABS: CALCIUM LEVEL 8.6 MG/DL (8.8-10.2); CREATININE FOR GFR 2.07 MG/DL (0.55-1.30); GLOMERULAR FILTRATION RATE 24.4 (>32); MAGNESIUM LEVEL 1.8 MG/DL (1.8-2.4); POTASSIUM SERUM 5.1 MEQ/L (3.5-5.1)
[2022-07-29] MEDS: SODIUM CHLORIDE 0.9% INJ 10 ML SYR IV SCH ×2 (05:44→18:31)
[2022-07-29] MEDS ORDERED: COSYNTROPIN 0.25 MG/ML VIAL (J0834 PER 0.25MG) IV ONE (06:00)
[2022-07-29 08:00] VITALS: BP 95/53
[2022-07-29] MEDS: OMEPRAZOLE 20MG CAP PO SCH (09:30)
[2022-07-29] MEDS: MIDODRINE 5 MG TAB PO SCH ×3 (09:31→16:08)
[2022-07-29] MEDS: MAGNESIUM OXIDE 400MG TAB (MAG-OX) PO SCH ×2 (09:31→20:21)
[2022-07-29] MEDS: LACTOBACILLUS ACIDOPHILUS CAP (BACID) PO SCH ×3 (09:31→18:30)
[2022-07-29] MEDS: EZETIMIBE 10MG TABLET (ZETIA) PO SCH (09:32)
[2022-07-29] MEDS: NYSTATIN 100,000 UNITS/GM TOPICAL PWD 15 GM TOP SCH ×2 (09:32→20:23)
[2022-07-29] MEDS: APIXABAN 2.5 MG TAB (ELIQUIS) PO SCH ×2 (09:33→20:21)
[2022-07-29] MEDS: AMIODARONE 200 MG TAB (PACERONE) PO SCH ×2 (09:33→20:23)
[2022-07-29 12:33] VITALS: BP 116/53
[2022-07-29 16:00] VITALS: BP 106/58
[2022-07-29 20:00] VITALS: BP 131/59
[2022-07-29] MEDS: CETIRIZINE (ZyrTEC) 10 MG TAB PO SCH (20:21)
[2022-07-30] MEDS: SODIUM CHLORIDE 0.9% INJ 10 ML SYR IV SCH ×2 (06:02→17:04)
[2022-07-30 06:20] LABS: HEMATOCRIT 24.4 % (36.0-47.0); HEMOGLOBIN 7.8 g/dl (12.0-15.5); MEAN CORPUSCULAR VOLUME 90.7 fl (80.0-96.0); PLATELET COUNT, AUTOMATED 219 10^3/uL (150-450); RED BLOOD COUNT 2.69 10^6/uL (4.00-5.40); WHITE BLOOD COUNT 8.5 10^3/uL (4.0-10.0)
[2022-07-30 06:48] LABS: CALCIUM LEVEL 8.9 MG/DL (8.8-10.2); CREATININE FOR GFR 2.14 MG/DL (0.55-1.30); GLOMERULAR FILTRATION RATE 23.5 (>32); MAGNESIUM LEVEL 1.9 MG/DL (1.8-2.4); POTASSIUM SERUM 5.2 MEQ/L (3.5-5.1)
[2022-07-30 08:00] VITALS: BP 129/61
[2022-07-30] MEDS: MIDODRINE 5 MG TAB PO SCH ×3 (08:00→15:44)
[2022-07-30] MEDS: LACTOBACILLUS ACIDOPHILUS CAP (BACID) PO SCH ×3 (08:41→17:03)
[2022-07-30] MEDS: APIXABAN 2.5 MG TAB (ELIQUIS) PO SCH ×2 (08:41→20:06)
[2022-07-30] MEDS: EZETIMIBE 10MG TABLET (ZETIA) PO SCH (08:42)
[2022-07-30] MEDS: MAGNESIUM OXIDE 400MG TAB (MAG-OX) PO SCH ×2 (08:42→20:06)
[2022-07-30] MEDS: OMEPRAZOLE 20MG CAP PO SCH (08:42)
[2022-07-30] MEDS: NYSTATIN 100,000 UNITS/GM TOPICAL PWD 15 GM TOP SCH ×2 (08:46→20:06)
[2022-07-30] MEDS: AMIODARONE 200 MG TAB (PACERONE) PO SCH ×2 (09:00→20:06)
[2022-07-30 10:33] LABS: CORTISOL 30 MINUTES 9.8 UG/DL; CORTISOL 60 MINUTES 9.8 UG/DL; CORTISOL AM 9.8 UG/DL (4.3-22.4); CORTISOL BASELINE 9.8 UG/DL (4.3-22.4)
[2022-07-30] MEDS ORDERED: FUROSEMIDE 100MG/10ML VIAL (J1940) IV ONE (11:55)
[2022-07-30 12:00] VITALS: BP 102/60
[2022-07-30] MEDS ORDERED: PATIROMER SORBITEX CALCIUM 8.4 GM POWDER PACKET (VELTASSA) PO ONE (13:00)
[2022-07-30 16:00] VITALS: BP 152/70
[2022-07-30 20:00] VITALS: BP 126/58
[2022-07-30] MEDS: CETIRIZINE (ZyrTEC) 10 MG TAB PO SCH (20:06)
[2022-07-31] MEDS: SODIUM CHLORIDE 0.9% INJ 10 ML SYR IV SCH ×2 (05:50→17:34)
[2022-07-31 06:13] LABS: HEMATOCRIT 24.7 % (36.0-47.0); HEMOGLOBIN 7.9 g/dl (12.0-15.5); MEAN CORPUSCULAR VOLUME 90.8 fl (80.0-96.0); PLATELET COUNT, AUTOMATED 226 10^3/uL (150-450); RED BLOOD COUNT 2.72 10^6/uL (4.00-5.40); WHITE BLOOD COUNT 8.5 10^3/uL (4.0-10.0)
[2022-07-31 06:44] LABS: CALCIUM LEVEL 8.6 MG/DL (8.8-10.2); CREATININE FOR GFR 1.91 MG/DL (0.55-1.30); GLOMERULAR FILTRATION RATE 26.8 (>32); MAGNESIUM LEVEL 1.7 MG/DL (1.8-2.4); POTASSIUM SERUM 5.2 MEQ/L (3.5-5.1)
[2022-07-31 07:40] VITALS: BP 117/55
[2022-07-31] MEDS ORDERED: MAG SULF 1GM/100ML (MAG RUN) 1 GM in IV 1 EA IV ONE (08:00)
[2022-07-31] MEDS: NYSTATIN 100,000 UNITS/GM TOPICAL PWD 15 GM TOP SCH ×2 (08:28→20:06)
[2022-07-31] MEDS: FUROSEMIDE 100MG/10ML VIAL (J1940) IV SCH ×2 (08:28→17:34)
[2022-07-31] MEDS: EZETIMIBE 10MG TABLET (ZETIA) PO SCH (08:32)
[2022-07-31] MEDS: APIXABAN 2.5 MG TAB (ELIQUIS) PO SCH ×2 (08:33→20:06)
[2022-07-31] MEDS: MIDODRINE 5 MG TAB PO SCH ×3 (08:33→16:00)
[2022-07-31] MEDS: MAGNESIUM OXIDE 400MG TAB (MAG-OX) PO SCH ×2 (08:33→20:05)
[2022-07-31] MEDS: LACTOBACILLUS ACIDOPHILUS CAP (BACID) PO SCH ×3 (08:33→17:34)
[2022-07-31] MEDS: AMIODARONE 200 MG TAB (PACERONE) PO SCH ×2 (08:33→20:15)
[2022-07-31] MEDS: OMEPRAZOLE 20MG CAP PO SCH (08:33)
[2022-07-31] MEDS ORDERED: PATIROMER SORBITEX CALCIUM 8.4 GM POWDER PACKET (VELTASSA) PO ONE (11:00)
[2022-07-31] MEDS: DARBEPOETIN 100 MCG/0.5 ML *NON-DIALYSIS* SYRINGE (J0881) SC SCH (11:04)
[2022-07-31 11:55] VITALS: BP 131/59
[2022-07-31] MEDS: LEVOTHYROXINE 75MCG TABLET (0.075MG) PO SCH (13:23)
[2022-07-31 16:01] VITALS: BP 126/58
[2022-07-31 20:00] VITALS: BP 106/51
[2022-07-31] MEDS: CETIRIZINE (ZyrTEC) 10 MG TAB PO SCH (20:06)
[2022-08-01] VITALS (7 sets, daily range): BP systolic 89–120; BP diastolic 52–57
[2022-08-01] MEDS: SODIUM CHLORIDE 0.9% INJ 10 ML SYR IV SCH ×2 (05:41→18:22)
[2022-08-01] MEDS: LEVOTHYROXINE 75MCG TABLET (0.075MG) PO SCH (05:41)
[2022-08-01 05:45] LABS: HEMATOCRIT 25.9 % (36.0-47.0); HEMOGLOBIN 8.2 g/dl (12.0-15.5); MEAN CORPUSCULAR HEMOGLOBIN 28.8 pg (27.0-33.0); MEAN CORPUSCULAR HGB CONC 31.7 g/dl (32.0-36.5); MEAN CORPUSCULAR VOLUME 90.9 fl (80.0-96.0); PLATELET COUNT, AUTOMATED 239 10^3/uL (150-450); RED BLOOD COUNT 2.85 10^6/uL (4.00-5.40); WHITE BLOOD COUNT 8.6 10^3/uL (4.0-10.0)
[2022-08-01 06:41] LABS: ALBUMIN 1.7 G/DL (3.2-5.2); BILIRUBIN,TOTAL 0.3 MG/DL (0.3-1.2); CREATININE FOR GFR 1.96 MG/DL (0.55-1.30); TOTAL PROTEIN 4.2 G/DL
[2022-08-01] MEDS: MAGNESIUM OXIDE 400MG TAB (MAG-OX) PO SCH ×2 (08:50→20:39)
[2022-08-01] MEDS: APIXABAN 2.5 MG TAB (ELIQUIS) PO SCH ×2 (08:50→20:39)
[2022-08-01] MEDS: AMIODARONE 200 MG TAB (PACERONE) PO SCH ×2 (08:50→20:40)
[2022-08-01] MEDS: EZETIMIBE 10MG TABLET (ZETIA) PO SCH (08:50)
[2022-08-01] MEDS: LACTOBACILLUS ACIDOPHILUS CAP (BACID) PO SCH ×3 (08:50→18:21)
[2022-08-01] MEDS: OMEPRAZOLE 20MG CAP PO SCH (08:50)
[2022-08-01] MEDS: MIDODRINE 5 MG TAB PO SCH ×3 (08:51→17:09)
[2022-08-01] MEDS: NYSTATIN 100,000 UNITS/GM TOPICAL PWD 15 GM TOP SCH ×2 (08:51→20:40)
[2022-08-01] MEDS: FUROSEMIDE 100MG/10ML VIAL (J1940) IV SCH ×2 (09:45→18:21)
[2022-08-01 13:42] LABS: THYROID STIMULATING HORMONE 28.302 uIU/ML (0.55-4.78)
[2022-08-01] MEDS: CETIRIZINE (ZyrTEC) 10 MG TAB PO SCH (20:39)
[2022-08-02] VITALS (13 sets, daily range): BP systolic 96–119; BP diastolic 45–59
[2022-08-02] MEDS: LEVOTHYROXINE 75MCG TABLET (0.075MG) PO SCH (05:23)
[2022-08-02] MEDS: SODIUM CHLORIDE 0.9% INJ 10 ML SYR IV SCH ×2 (05:23→17:23)
[2022-08-02 05:37] LABS: HEMATOCRIT 24.1 % (36.0-47.0); HEMOGLOBIN 7.7 g/dl (12.0-15.5); MEAN CORPUSCULAR HEMOGLOBIN 29.1 pg (27.0-33.0); MEAN CORPUSCULAR VOLUME 90.9 fl (80.0-96.0); PLATELET COUNT, AUTOMATED 222 10^3/uL (150-450); RED BLOOD COUNT 2.65 10^6/uL (4.00-5.40); WHITE BLOOD COUNT 9.3 10^3/uL (4.0-10.0)
[2022-08-02 07:05] LABS: ALBUMIN 2.5 G/DL (3.2-5.2); ALT/SGPT 8.99999 U/L (7.0-40); BILIRUBIN,TOTAL 0.4 MG/DL (0.3-1.2); CALCIUM LEVEL 9.3 MG/DL (8.3-10.6); CREATININE FOR GFR 1.78 MG/DL (0.55-1.30); MAGNESIUM LEVEL 1.5 MG/DL (1.8-2.4); PHOSPHORUS LEVEL 1.1 MG/DL (2.4-5.1); POTASSIUM SERUM 4.7 MMOL/L (3.5-5.1); TOTAL PROTEIN 4.3 G/DL (5.7-8.2)
[2022-08-02] MEDS: MIDODRINE 5 MG TAB PO SCH ×3 (07:24→15:51)
[2022-08-02] MEDS: LACTOBACILLUS ACIDOPHILUS CAP (BACID) PO SCH ×3 (07:24→17:22)
[2022-08-02] MEDS: NYSTATIN 100,000 UNITS/GM TOPICAL PWD 15 GM TOP SCH ×2 (09:28→21:57)
[2022-08-02] MEDS: FUROSEMIDE 100MG/10ML VIAL (J1940) IV SCH ×2 (09:28→16:43)
[2022-08-02] MEDS: OMEPRAZOLE 20MG CAP PO SCH (09:28)
[2022-08-02] MEDS: EZETIMIBE 10MG TABLET (ZETIA) PO SCH (09:28)
[2022-08-02] MEDS: APIXABAN 2.5 MG TAB (ELIQUIS) PO SCH ×2 (09:28→21:56)
[2022-08-02] MEDS: AMIODARONE 200 MG TAB (PACERONE) PO SCH ×2 (09:28→21:56)
[2022-08-02] MEDS: MAGNESIUM OXIDE 400MG TAB (MAG-OX) PO SCH ×2 (09:28→21:56)
[2022-08-02] MEDS ORDERED: MAG SULF 1GM/100ML (MAG RUN) 1 GM in IV 1 EA IV ONE (10:00)
[2022-08-02] MEDS ORDERED: POTASSIUM PHOSPHATE INJ 20 MMOL in D5W 250 ML IV ONE (11:00)
[2022-08-02] MEDS ORDERED: SODIUM PHOSPHATE INJ 30 MMOL in D5W 500 ML IV ONE (12:00)
[2022-08-02] MEDS: CETIRIZINE (ZyrTEC) 10 MG TAB PO SCH (21:56)
[2022-08-03 06:00] VITALS: BP 106/48
[2022-08-03] MEDS: LEVOTHYROXINE 75MCG TABLET (0.075MG) PO SCH (06:18)
[2022-08-03] MEDS: SODIUM CHLORIDE 0.9% INJ 10 ML SYR IV SCH ×2 (06:19→16:49)
[2022-08-03 07:23] LABS: HEMATOCRIT 25.9 % (36.0-47.0); MEAN CORPUSCULAR HEMOGLOBIN 28.3 pg (27.0-33.0); MEAN CORPUSCULAR HGB CONC 30.9 g/dl (32.0-36.5); MEAN CORPUSCULAR VOLUME 91.5 fl (80.0-96.0); PLATELET COUNT, AUTOMATED 245 10^3/uL (150-450); RED BLOOD COUNT 2.83 10^6/uL (4.00-5.40)
[2022-08-03 07:41] LABS: ALBUMIN 2.4 G/DL (3.2-5.2); ALKALINE PHOSPHATASE 66 U/L (46-116); ALT/SGPT < 9 U/L (7.0-40); AST/SGOT 27 U/L (<34); BILIRUBIN,TOTAL 0.4 MG/DL (0.3-1.2); BLOOD UREA NITROGEN 29 MG/DL (9-23); CALCIUM LEVEL 8.3 MG/DL (8.3-10.6); CARBON DIOXIDE LEVEL 31 MMOL/L (20-31); CHLORIDE LEVEL 94 MMOL/L (98-107); CREATININE FOR GFR 1.81 MG/DL (0.55-1.30); GLOMERULAR FILTRATION RATE 28.5 (>32); GLUCOSE, FASTING 87 MG/DL (74-106); MAGNESIUM LEVEL 1.7 MG/DL (1.8-2.4); POTASSIUM SERUM 4.9 MMOL/L (3.5-5.1); SODIUM LEVEL 133 MMOL/L (136-145); TOTAL PROTEIN 4.6 G/DL (5.7-8.2)
[2022-08-03] MEDS: MAGNESIUM OXIDE 400MG TAB (MAG-OX) PO SCH ×2 (08:16→20:30)
[2022-08-03] MEDS: OMEPRAZOLE 20MG CAP PO SCH (08:16)
[2022-08-03] MEDS: EZETIMIBE 10MG TABLET (ZETIA) PO SCH (08:16)
[2022-08-03] MEDS: MIDODRINE 5 MG TAB PO SCH ×3 (08:16→16:48)
[2022-08-03] MEDS: LACTOBACILLUS ACIDOPHILUS CAP (BACID) PO SCH ×3 (08:16→16:49)
[2022-08-03] MEDS: APIXABAN 2.5 MG TAB (ELIQUIS) PO SCH ×2 (08:16→20:30)
[2022-08-03] MEDS: NYSTATIN 100,000 UNITS/GM TOPICAL PWD 15 GM TOP SCH ×2 (08:17→20:34)
[2022-08-03] MEDS: AMIODARONE 200 MG TAB (PACERONE) PO SCH ×2 (08:17→20:33)
[2022-08-03] MEDS: FUROSEMIDE 100MG/10ML VIAL (J1940) IV SCH (08:17)
[2022-08-03 12:36] VITALS: BP 98/44
[2022-08-03 14:00] VITALS: BP 127/53
[2022-08-03] MEDS: ACETAMINOPHEN TAB 650MG DOSE (2X325MG) PO PRN (16:50)
[2022-08-03] MEDS ORDERED: MAG SULF 1GM/100ML (MAG RUN) 1 GM in IV 1 EA IV ONE (17:00)
[2022-08-03] MEDS: K-PHOS NEUTRAL 250MG TABLET (SOD.PHOSPHATE/POT.PHOSPHATE) PO SCH (20:29)
[2022-08-03] MEDS: CETIRIZINE (ZyrTEC) 10 MG TAB PO SCH (20:30)
[2022-08-04 05:13] VITALS: BP 113/49
[2022-08-04] MEDS: SODIUM CHLORIDE 0.9% INJ 10 ML SYR IV SCH ×2 (05:14→17:45)
[2022-08-04] MEDS: LEVOTHYROXINE 75MCG TABLET (0.075MG) PO SCH (05:14)
[2022-08-04 05:48] LABS: HEMOGLOBIN 8.2 g/dl (12.0-15.5); MEAN CORPUSCULAR HEMOGLOBIN 29.3 pg (27.0-33.0); MEAN CORPUSCULAR HGB CONC 31.5 g/dl (32.0-36.5); MEAN CORPUSCULAR VOLUME 92.9 fl (80.0-96.0); PLATELET COUNT, AUTOMATED 242 10^3/uL (150-450); WHITE BLOOD COUNT 8.8 10^3/uL (4.0-10.0)
[2022-08-04 06:14] LABS: ALBUMIN 2.3 G/DL (3.2-5.2); ALKALINE PHOSPHATASE 64 U/L (46-116); ALT/SGPT < 9 U/L (7.0-40); AST/SGOT 24 U/L (<34); BILIRUBIN,TOTAL 0.4 MG/DL (0.3-1.2); BLOOD UREA NITROGEN 32 MG/DL (9-23); CALCIUM LEVEL 8.2 MG/DL (8.3-10.6); CARBON DIOXIDE LEVEL 31 MMOL/L (20-31); CHLORIDE LEVEL 94 MMOL/L (98-107); CREATININE FOR GFR 1.89 MG/DL (0.55-1.30); GLOMERULAR FILTRATION RATE 27.1 (>32); GLUCOSE, FASTING 77 MG/DL (74-106); MAGNESIUM LEVEL 1.9 MG/DL (1.8-2.4); PHOSPHORUS LEVEL 3.4 MG/DL (2.4-5.1); POTASSIUM SERUM 4.8 MMOL/L (3.5-5.1); SODIUM LEVEL 134 MMOL/L (136-145); TOTAL PROTEIN 4.5 G/DL (5.7-8.2)
[2022-08-04] MEDS: MIDODRINE 5 MG TAB PO SCH ×3 (08:00→17:45)
[2022-08-04] MEDS: K-PHOS NEUTRAL 250MG TABLET (SOD.PHOSPHATE/POT.PHOSPHATE) PO SCH ×2 (08:22→20:26)
[2022-08-04] MEDS: MAGNESIUM OXIDE 400MG TAB (MAG-OX) PO SCH ×2 (08:22→20:19)
[2022-08-04] MEDS: LACTOBACILLUS ACIDOPHILUS CAP (BACID) PO SCH ×3 (08:22→17:45)
[2022-08-04] MEDS: EZETIMIBE 10MG TABLET (ZETIA) PO SCH (08:22)
[2022-08-04] MEDS: AMIODARONE 200 MG TAB (PACERONE) PO SCH ×2 (08:22→20:19)
[2022-08-04] MEDS: APIXABAN 2.5 MG TAB (ELIQUIS) PO SCH ×2 (08:23→20:19)
[2022-08-04] MEDS: TORSEMIDE 100 MG TAB PO SCH (08:23)
[2022-08-04] MEDS: OMEPRAZOLE 20MG CAP PO SCH (08:23)
[2022-08-04] MEDS: NYSTATIN 100,000 UNITS/GM TOPICAL PWD 15 GM TOP SCH ×2 (08:24→20:20)
[2022-08-04] MEDS: LOPERAMIDE 2 MG CAPLET PO PRN (17:45)
[2022-08-04 17:53] VITALS: BP 111/56
[2022-08-04] MEDS: ACETAMINOPHEN TAB 650MG DOSE (2X325MG) PO PRN ×2 (17:57→22:40)
[2022-08-04 20:20] VITALS: BP 123/58
[2022-08-04] MEDS: CETIRIZINE (ZyrTEC) 10 MG TAB PO SCH (20:20)
[2022-08-05] MEDS: LEVOTHYROXINE 75MCG TABLET (0.075MG) PO SCH (05:53)
[2022-08-05] MEDS: SODIUM CHLORIDE 0.9% INJ 10 ML SYR IV SCH ×2 (05:53→17:16)
[2022-08-05 06:00] VITALS: BP 102/41
[2022-08-05 06:29] LABS: HEMOGLOBIN 7.9 g/dl (12.0-15.5); MEAN CORPUSCULAR HEMOGLOBIN 29.3 pg (27.0-33.0); MEAN CORPUSCULAR HGB CONC 31.6 g/dl (32.0-36.5); MEAN CORPUSCULAR VOLUME 92.6 fl (80.0-96.0); PLATELET COUNT, AUTOMATED 252 10^3/uL (150-450); WHITE BLOOD COUNT 7.5 10^3/uL (4.0-10.0)
[2022-08-05 07:13] LABS: ALBUMIN 2.2 G/DL (3.2-5.2); ALKALINE PHOSPHATASE 64 U/L (46-116); ALT/SGPT < 9 U/L (7.0-40); AST/SGOT 27 U/L (<34); BILIRUBIN,TOTAL 0.5 MG/DL (0.3-1.2); BLOOD UREA NITROGEN 37 MG/DL (9-23); CALCIUM LEVEL 7.7 MG/DL (8.3-10.6); CARBON DIOXIDE LEVEL 32 MMOL/L (20-31); CHLORIDE LEVEL 93 MMOL/L (98-107); GLOMERULAR FILTRATION RATE 21.6 (>32); GLUCOSE, FASTING 76 MG/DL (74-106); POTASSIUM SERUM 4.5 MMOL/L (3.5-5.1); SODIUM LEVEL 134 MMOL/L (136-145); TOTAL PROTEIN 4.4 G/DL (5.7-8.2)
[2022-08-05] MEDS: MIDODRINE 5 MG TAB PO SCH ×3 (08:10→17:15)
[2022-08-05] MEDS: K-PHOS NEUTRAL 250MG TABLET (SOD.PHOSPHATE/POT.PHOSPHATE) PO SCH ×2 (08:11→22:03)
[2022-08-05] MEDS: TORSEMIDE 100 MG TAB PO SCH (08:11)
[2022-08-05] MEDS: LACTOBACILLUS ACIDOPHILUS CAP (BACID) PO SCH ×3 (08:11→17:15)
[2022-08-05] MEDS: MAGNESIUM OXIDE 400MG TAB (MAG-OX) PO SCH ×2 (08:11→22:04)
[2022-08-05] MEDS: EZETIMIBE 10MG TABLET (ZETIA) PO SCH (08:11)
[2022-08-05] MEDS: AMIODARONE 200 MG TAB (PACERONE) PO SCH ×2 (08:11→22:04)
[2022-08-05] MEDS: OMEPRAZOLE 20MG CAP PO SCH (08:11)
[2022-08-05] MEDS: APIXABAN 2.5 MG TAB (ELIQUIS) PO SCH ×2 (08:11→22:03)
[2022-08-05] MEDS: NYSTATIN 100,000 UNITS/GM TOPICAL PWD 15 GM TOP SCH ×2 (08:12→22:04)
[2022-08-05 12:38] VITALS: BP 103/41
[2022-08-05] MEDS: GASTROGRAFIN SOLUTION 30ML PO SCH ×2 (14:35→15:18)
[2022-08-05] MEDS: CETIRIZINE (ZyrTEC) 10 MG TAB PO SCH (22:03)
[2022-08-05] MEDS: ACETAMINOPHEN TAB 650MG DOSE (2X325MG) PO PRN (23:07)
[2022-08-06] MEDS: LEVOTHYROXINE 75MCG TABLET (0.075MG) PO SCH (05:27)
[2022-08-06] MEDS: SODIUM CHLORIDE 0.9% INJ 10 ML SYR IV SCH ×2 (05:28→18:04)
[2022-08-06 05:44] LABS: HEMATOCRIT 25.5 % (36.0-47.0); MEAN CORPUSCULAR HEMOGLOBIN 29.4 pg (27.0-33.0); MEAN CORPUSCULAR HGB CONC 31.4 g/dl (32.0-36.5); MEAN CORPUSCULAR VOLUME 93.8 fl (80.0-96.0); PLATELET COUNT, AUTOMATED 234 10^3/uL (150-450); RED BLOOD COUNT 2.72 10^6/uL (4.00-5.40); WHITE BLOOD COUNT 6.5 10^3/uL (4.0-10.0)
[2022-08-06 06:00] VITALS: BP 102/46
[2022-08-06 06:21] LABS: ALBUMIN 2.2 G/DL (3.2-5.2); ALKALINE PHOSPHATASE 68 U/L (46-116); ALT/SGPT < 9 U/L (7.0-40); AST/SGOT 27 U/L (<34); BILIRUBIN,TOTAL 0.5 MG/DL (0.3-1.2); BLOOD UREA NITROGEN 34 MG/DL (9-23); CARBON DIOXIDE LEVEL 32 MMOL/L (20-31); CHLORIDE LEVEL 93 MMOL/L (98-107); CREATININE FOR GFR 2.25 MG/DL (0.55-1.30); GLOMERULAR FILTRATION RATE 22.2 (>32); GLUCOSE, FASTING 73 MG/DL (74-106); MAGNESIUM LEVEL 1.6 MG/DL (1.8-2.4); PHOSPHORUS LEVEL 4.4 MG/DL (2.4-5.1); POTASSIUM SERUM 4.2 MMOL/L (3.5-5.1); SODIUM LEVEL 134 MMOL/L (136-145); TOTAL PROTEIN 4.4 G/DL (5.7-8.2)
[2022-08-06 08:51] VITALS: BP 98/64
[2022-08-06] MEDS: LACTOBACILLUS ACIDOPHILUS CAP (BACID) PO SCH ×3 (08:52→17:10)
[2022-08-06] MEDS: APIXABAN 2.5 MG TAB (ELIQUIS) PO SCH ×2 (08:52→21:24)
[2022-08-06] MEDS: MIDODRINE 5 MG TAB PO SCH ×3 (08:52→15:53)
[2022-08-06] MEDS: MAGNESIUM OXIDE 400MG TAB (MAG-OX) PO SCH ×2 (08:52→21:24)
[2022-08-06] MEDS: AMIODARONE 200 MG TAB (PACERONE) PO SCH ×2 (08:52→21:24)
[2022-08-06] MEDS: K-PHOS NEUTRAL 250MG TABLET (SOD.PHOSPHATE/POT.PHOSPHATE) PO SCH ×2 (08:52→21:24)
[2022-08-06] MEDS: EZETIMIBE 10MG TABLET (ZETIA) PO SCH (08:52)
[2022-08-06] MEDS: OMEPRAZOLE 20MG CAP PO SCH (08:52)
[2022-08-06] MEDS: TORSEMIDE 100 MG TAB PO SCH (08:52)
[2022-08-06] MEDS: NYSTATIN 100,000 UNITS/GM TOPICAL PWD 15 GM TOP SCH ×2 (08:53→21:25)
[2022-08-06] MEDS: PROCTOFOAM-HC 1% FOAM 10 GM CAN PR SCH ×2 (15:54→21:42)
[2022-08-06] MEDS: LOPERAMIDE 2 MG CAPLET PO PRN (17:14)
[2022-08-06] MEDS: CETIRIZINE (ZyrTEC) 10 MG TAB PO SCH (21:25)
[2022-08-07] MEDS: SODIUM CHLORIDE 0.9% INJ 10 ML SYR IV SCH ×2 (05:05→17:57)
[2022-08-07] MEDS: LEVOTHYROXINE 75MCG TABLET (0.075MG) PO SCH (05:06)
[2022-08-07 05:23] VITALS: BP 108/47
[2022-08-07] MEDS: EZETIMIBE 10MG TABLET (ZETIA) PO SCH (08:18)
[2022-08-07] MEDS: MAGNESIUM OXIDE 400MG TAB (MAG-OX) PO SCH ×3 (08:19→20:28)
[2022-08-07] MEDS: PROCTOFOAM-HC 1% FOAM 10 GM CAN PR SCH ×3 (08:20→21:00)
[2022-08-07] MEDS: APIXABAN 2.5 MG TAB (ELIQUIS) PO SCH ×2 (08:20→20:28)
[2022-08-07] MEDS: MIDODRINE 5 MG TAB PO SCH ×3 (08:20→16:00)
[2022-08-07] MEDS: K-PHOS NEUTRAL 250MG TABLET (SOD.PHOSPHATE/POT.PHOSPHATE) PO SCH ×2 (08:20→20:28)
[2022-08-07] MEDS: OMEPRAZOLE 20MG CAP PO SCH (08:20)
[2022-08-07] MEDS: TORSEMIDE 100 MG TAB PO SCH (08:20)
[2022-08-07] MEDS: LACTOBACILLUS ACIDOPHILUS CAP (BACID) PO SCH ×3 (08:20→17:54)
[2022-08-07] MEDS: NYSTATIN 100,000 UNITS/GM TOPICAL PWD 15 GM TOP SCH ×2 (08:20→20:29)
[2022-08-07] MEDS: AMIODARONE 200 MG TAB (PACERONE) PO SCH ×2 (09:00→21:50)
[2022-08-07] MEDS: DARBEPOETIN 100 MCG/0.5 ML *NON-DIALYSIS* SYRINGE (J0881) SC SCH (10:17)
[2022-08-07 12:10] VITALS: BP 107/50
[2022-08-07 14:20] LABS: HEMATOCRIT 27.4 % (36.0-47.0); HEMOGLOBIN 8.5 g/dl (12.0-15.5); MEAN CORPUSCULAR HEMOGLOBIN 29.6 pg (27.0-33.0); MEAN CORPUSCULAR VOLUME 95.5 fl (80.0-96.0); PLATELET COUNT, AUTOMATED 257 10^3/uL (150-450); RED BLOOD COUNT 2.87 10^6/uL (4.00-5.40); WHITE BLOOD COUNT 7.3 10^3/uL (4.0-10.0)
[2022-08-07 14:57] LABS: ALBUMIN 2.4 G/DL (3.2-5.2); ALKALINE PHOSPHATASE 78 U/L (46-116); ALT/SGPT < 9 U/L (7.0-40); AST/SGOT 29 U/L (<34); BILIRUBIN,TOTAL 0.5 MG/DL (0.3-1.2); BLOOD UREA NITROGEN 35 MG/DL (9-23); CALCIUM LEVEL 7.1 MG/DL (8.3-10.6); CARBON DIOXIDE LEVEL 30 MMOL/L (20-31); CHLORIDE LEVEL 92 MMOL/L (98-107); CREATININE FOR GFR 2.35 MG/DL (0.55-1.30); GLOMERULAR FILTRATION RATE 21.1 (>32); GLUCOSE, FASTING 121 MG/DL (74-106); MAGNESIUM LEVEL 1.6 MG/DL (1.8-2.4); PHOSPHORUS LEVEL 4.7 MG/DL (2.4-5.1); POTASSIUM SERUM 4.1 MMOL/L (3.5-5.1); SODIUM LEVEL 134 MMOL/L (136-145); TOTAL PROTEIN 5.1 G/DL (5.7-8.2)
[2022-08-07 16:06] VITALS: BP 122/58
[2022-08-07] MEDS: LOPERAMIDE 2 MG CAPLET PO PRN (16:10)
[2022-08-07] MEDS: ACETAMINOPHEN TAB 650MG DOSE (2X325MG) PO PRN (17:55)
[2022-08-07 20:00] VITALS: BP 92/38
[2022-08-07] MEDS ORDERED: MIDODRINE 5 MG TAB PO ONE (20:15)
[2022-08-07] MEDS: CETIRIZINE (ZyrTEC) 10 MG TAB PO SCH (20:28)
[2022-08-07 21:35] VITALS: BP 106/50
[2022-08-08] MEDS: LEVOTHYROXINE 75MCG TABLET (0.075MG) PO SCH (05:10)
[2022-08-08 05:20] VITALS: BP 98/51
[2022-08-08] MEDS: MAGNESIUM OXIDE 400MG TAB (MAG-OX) PO SCH ×2 (08:54→16:25)
[2022-08-08] MEDS: OMEPRAZOLE 20MG CAP PO SCH (08:54)
[2022-08-08] MEDS: LACTOBACILLUS ACIDOPHILUS CAP (BACID) PO SCH ×2 (08:54→13:12)
[2022-08-08] MEDS: APIXABAN 2.5 MG TAB (ELIQUIS) PO SCH (08:55)
[2022-08-08] MEDS: EZETIMIBE 10MG TABLET (ZETIA) PO SCH (08:55)
[2022-08-08] MEDS: MIDODRINE 5 MG TAB PO SCH ×3 (08:55→16:25)
[2022-08-08] MEDS: TORSEMIDE 100 MG TAB PO SCH (08:55)
[2022-08-08] MEDS: K-PHOS NEUTRAL 250MG TABLET (SOD.PHOSPHATE/POT.PHOSPHATE) PO SCH (08:56)
[2022-08-08] MEDS: PROCTOFOAM-HC 1% FOAM 10 GM CAN PR SCH ×2 (08:57→16:25)
[2022-08-08] MEDS: AMIODARONE 200 MG TAB (PACERONE) PO SCH (08:57)
[2022-08-08] MEDS: NYSTATIN 100,000 UNITS/GM TOPICAL PWD 15 GM TOP SCH (08:58)
[2022-08-08] MEDS ORDERED: TORS100T PO (11:51)
[2022-08-08] MEDS ORDERED: LEVO75TA4 PO (11:51)
[2022-08-08] MEDS ORDERED: AMIO200T49 PO (11:51)
[2022-08-08] MEDS ORDERED: MIDO5TA PO (11:51)
[2022-08-08] MEDS ORDERED: PHOS1TAB3 PO (11:51)
[2022-08-08 13:01] VITALS: BP 109/51
[2022-08-08 16:26] VITALS: BP 112/50
== END 2022-08-08 19:45 | disposition home health service (06) | DRG 682 ==
LOC: M ED 16:30 → M ED INP 18:45 → M PCU 23:08 → M ICU 07-17 19:24 → M MSPAV 08-02 12:06
PROVIDERS: ADMIT Family Medicine; ATTEND Family Medicine
PROC: 30233N1 Transfusion of Nonautologous Red Blood Cells into Peripheral Vein, Percutaneous Approach (ICD-10-PCS; principal; 2022-07-15)
PROC: 02HV33Z Insertion of Infusion Device into Superior Vena Cava, Percutaneous Approach (ICD-10-PCS; 2022-07-20)
DX: N17.9 Acute kidney failure, unspecified (principal); I50.33 Acute on chronic diastolic (congestive) heart failure; A41.9 Sepsis, unspecified organism; I13.0 Hypertensive heart and chronic kidney disease with heart failure and stage 1 through stage 4 chronic kidney disease, or unspecified chronic kidney disease; I48.20 Chronic atrial fibrillation, unspecified; E87.20 Acidosis, unspecified; E87.1 Hypo-osmolality and hyponatremia; I47.1 Supraventricular tachycardia; K92.1 Melena; N39.0 Urinary tract infection, site not specified; L03.119 Cellulitis of unspecified part of limb; E46 Unspecified protein-calorie malnutrition; D62 Acute posthemorrhagic anemia; J44.9 Chronic obstructive pulmonary disease, unspecified; E03.9 Hypothyroidism, unspecified; K21.9 Gastro-esophageal reflux disease without esophagitis; E78.5 Hyperlipidemia, unspecified; E83.51 Hypocalcemia; E83.42 Hypomagnesemia; E87.6 Hypokalemia; R11.2 Nausea with vomiting, unspecified; I95.1 Orthostatic hypotension; M10.9 Gout, unspecified; E86.9 Volume depletion, unspecified; I27.20 Pulmonary hypertension, unspecified; Z66 Do not resuscitate; D63.1 Anemia in chronic kidney disease; B96.5 Pseudomonas (aeruginosa) (mallei) (pseudomallei) as the cause of diseases classified elsewhere; E88.09 Other disorders of plasma-protein metabolism, not elsewhere classified; R00.1 Bradycardia, unspecified; E83.39 Other disorders of phosphorus metabolism; R31.9 Hematuria, unspecified; N18.4 Chronic kidney disease, stage 4 (severe); Z79.01 Long term (current) use of anticoagulants; R19.7 Diarrhea, unspecified; Z88.8 Allergy status to other drugs, medicaments and biological substances; Z79.899 Other long term (current) drug therapy; Z98.41 Cataract extraction status, right eye; Z98.42 Cataract extraction status, left eye

== ENCOUNTER → 2022-09-20 | Outpatient (CLI) | payer MEDICARE, OTHER ==
[~2022-09-20] MED LIST changes: +ALBU8.5H INH; +COSE1INJ INJ; +FERR325T3 PO; +FLON1SPR NARES; +LEVO75TA4 PO; +MAGN500T6 PO; +MIDO5TA PO; +OMEP-173 PO; +ONDA-83 PO; +PHOS1TAB3 PO; +SPIR-10 PO; +TORS100T PO
== END ==
LOC: M PLAIMG 15:51
PROVIDERS: ATTEND Internal Medicine Nephrology
DX: J90 Pleural effusion, not elsewhere classified (principal)

== ENCOUNTER → 2022-11-23 | Outpatient (REF) | payer MEDICARE, OTHER ==
[2022-11-23 17:36] LABS: POTASSIUM SERUM 4.4 MMOL/L (3.5-5.1)
[2022-11-23 17:44] LABS: PERCENT SATURATION 14.2 % (13.2-45.0)
== END ==
LOC: M LAB REF 16:36
PROVIDERS: ATTEND Internal Medicine Nephrology
DX: D50.9 Iron deficiency anemia, unspecified (principal); N17.9 Acute kidney failure, unspecified

== ENCOUNTER 2022-11-28 10:39 | Outpatient (CLI) | payer MEDICARE, OTHER ==
[~2022-11-28 10:39] MED LIST changes: +ALBUTEROL SULFATE 2.5MG/0.5ML INH NEB SOLN INH PRN; +EPINEPHrine INJ 1 MG/ML 1ML AMP IM PRN; +FERRIC CARBOXYMALTOSE INJ 750 MG in NS 250 ML (>50kg) IV ONE; +NS 1,000 ML IV SCH; +diphenhydrAMINE 50MG/ML VIAL IV PRN; +methylPREDNISolone 125MG 2ML VIAL IV PRN
[2022-11-28 10:45] VITALS: BP_SYST 148; BP_SYST 150; BP_DIAS 67; BP_DIAS 88
[2022-11-28 12:20] VITALS: BP 160/74
== END 2022-11-28 12:20 | disposition home or self-care (01) ==
LOC: M INFU 10:39
PROVIDERS: ATTEND Internal Medicine Nephrology
DX: D50.9 Iron deficiency anemia, unspecified (principal); Z88.8 Allergy status to other drugs, medicaments and biological substances
CPT/HCPCS: 96365; J1439

== ENCOUNTER → 2023-01-25 | Outpatient (REF) | payer MEDICARE, OTHER ==
[~2023-01-25] MED LIST changes: -ALBUTEROL SULFATE 2.5MG/0.5ML INH NEB SOLN INH PRN; -EPINEPHrine INJ 1 MG/ML 1ML AMP IM PRN; -FERRIC CARBOXYMALTOSE INJ 750 MG in NS 250 ML (>50kg) IV ONE; -NS 1,000 ML IV SCH; -diphenhydrAMINE 50MG/ML VIAL IV PRN; -methylPREDNISolone 125MG 2ML VIAL IV PRN
[2023-01-25 18:36] LABS: PERCENT SATURATION 27.1 % (13.2-45.0)
== END ==
LOC: M LAB REF 17:02
PROVIDERS: ATTEND Internal Medicine Nephrology
DX: D50.9 Iron deficiency anemia, unspecified (principal)

== ENCOUNTER → 2023-05-09 | Outpatient (REF) | payer MEDICARE, OTHER ==
[2023-05-09 18:32] LABS: PERCENT SATURATION 20.7 % (13.2-45.0)
== END ==
LOC: M LAB REF 17:24
PROVIDERS: ATTEND Internal Medicine Nephrology
DX: D50.9 Iron deficiency anemia, unspecified (principal)

== ENCOUNTER → 2023-11-12 | Outpatient (CLI) | payer MEDICARE ==
[~2023-11-12] MED LIST changes: +CEFD1CAP9 PO; -CEFD300C41 PO; +EZET10TA58 PO; -ZETI10TA16 PO
== END ==
LOC: M WHC 14:57
PROVIDERS: ATTEND Advanced Practice Midwife
DX: Z12.31 Encounter for screening mammogram for malignant neoplasm of breast (principal)

== ENCOUNTER → 2024-02-18 | Outpatient (REF) | payer MEDICARE, OTHER | LOC: M LAB REF 17:26 | PROVIDERS: ATTEND Internal Medicine Nephrology | DX: N39.0 Urinary tract infection, site not specified (principal) ==

== ENCOUNTER → 2024-05-12 | Outpatient (CLI) | payer MEDICARE, OTHER | LOC: M WHC 10:52 | PROVIDERS: ATTEND Internal Medicine Endocrinology, Diabetes & Metabolism | DX: E21.3 Hyperparathyroidism, unspecified (principal); R73.01 Impaired fasting glucose; M81.0 Age-related osteoporosis without current pathological fracture; E03.9 Hypothyroidism, unspecified; E53.8 Deficiency of other specified B group vitamins; E55.9 Vitamin D deficiency, unspecified; E83.51 Hypocalcemia ==

== ENCOUNTER → 2024-05-12 | Outpatient (CLI) | payer MEDICARE, OTHER ==
[2024-05-12 14:22] LABS: HEMOGLOBIN A1c 5.2 % (4.0-6.0)
[2024-05-12 14:27] LABS: BILIRUBIN,TOTAL 0.2 MG/DL (0.3-1.2); CALCIUM LEVEL 9.8 MG/DL (8.3-10.6); CREATININE FOR GFR 3.39 MG/DL (0.55-1.30); GLOMERULAR FILTRATION RATE 13.7 (>32); POTASSIUM SERUM 4.5 MMOL/L (3.5-5.1); THYROXINE (T4) 4.2 UG/DL (4.5-10.9); TOTAL PROTEIN 6.6 G/DL (5.7-8.2); TOTAL T3 111.6 NG/DL (60.0-181.0)
[2024-05-12 14:28] LABS: FREE T3 3.7 PG/ML (2.3-4.2); TOTAL 25(OH) VITAMIN D 23.4 NG/ML (20.0-100.0)
[2024-05-12 14:29] LABS: FREE THYROXINE INDEX 2.3 % (1.3-4.8); T UPTAKE 53.8 % (22.5-37.0); THYROID STIMULATING HORMONE 0.693 uIU/ML (0.55-4.78)
== END ==
LOC: M PLALAB 10:55
PROVIDERS: ATTEND Internal Medicine Endocrinology, Diabetes & Metabolism
DX: E21.3 Hyperparathyroidism, unspecified (principal); E83.51 Hypocalcemia; R73.01 Impaired fasting glucose; M81.0 Age-related osteoporosis without current pathological fracture; E03.9 Hypothyroidism, unspecified; E53.8 Deficiency of other specified B group vitamins; E55.9 Vitamin D deficiency, unspecified

== ENCOUNTER → 2024-12-22 | Outpatient (REF) | payer MEDICARE, OTHER ==
[~2024-12-22] MED LIST changes: +DENO60SY2 SC; -PROL60SO SC
== END ==
LOC: M LAB REF 17:37
PROVIDERS: ATTEND Internal Medicine Nephrology
DX: D50.9 Iron deficiency anemia, unspecified (principal)

== ENCOUNTER 2025-01-05 17:35 | Inpatient (IN) | payer MEDICARE, OTHER ==
[~2025-01-05] VITALS: Ht 152.4 cm; Wt 55.0 kg
[2025-01-05 22:48] LABS: BASO # 0.1 10^3/uL (0.0-0.2); BASO % 0.8 % (0.0-1.0); EOS # 0.2 10^3/uL (0.0-0.5); EOS % 2.5 % (0.0-3.0); HEMATOCRIT 24.5 % (36.0-47.0); HEMOGLOBIN 7.5 g/dl (12.0-15.5); LYMPH # 0.8 10^3/uL (1.5-5.0); LYMPH % 9.6 % (24.0-44.0); MEAN CORPUSCULAR HEMOGLOBIN 24.3 pg (27.0-33.0); MEAN CORPUSCULAR HGB CONC 30.6 g/dl (32.0-36.5); MEAN CORPUSCULAR VOLUME 79.3 fl (80.0-96.0); MONO # 1.2 10^3/uL (0.0-0.8); MONO % 14.7 % (2.0-8.0); NEUTROPHILS # 5.7 10^3/uL (1.5-8.5); NEUTROPHILS % 71.9 % (36.0-66.0); PLATELET COUNT, AUTOMATED 401 10^3/uL (150-450); RED BLOOD COUNT 3.09 10^6/uL (4.00-5.40); WHITE BLOOD COUNT 7.9 10^3/uL (4.0-10.0)
[2025-01-05 23:02] LABS: INR 1.5; PARTIAL THROMBOPLASTIN TIME 37.3 SECONDS (24.8-34.2); PROTHROMBIN TIME 18.3 SECONDS (12.5-14.5)
[2025-01-06] VITALS (18 sets, daily range): BP systolic 135–166; BP diastolic 66–74; TEMP 97.5–98.2; O2SAT 92–98
[2025-01-06 00:02] LABS: KETONE, URINE AUTO RFX TRACE mg/dL (NEGATIVE); NITRITE, URINE AUTO RFX NEGATIVE (NEGATIVE); RBC, URINE AUTO RFX 6 /HPF (0-3); SQUAM EPITHELIAL CELL UR AURFX 2 /HPF (0-6)
[2025-01-06 00:07] LABS: LEUKOCYTE ESTERASE UR AUTO RFX 3+ (NEGATIVE); WBC, URINE AUTO RFX 59 /HPF (0-3)
[2025-01-06 00:15] LABS: LIPASE 186 U/L (12-53)
[2025-01-06 00:23] LABS: ALBUMIN 2.1 G/DL (3.2-5.2); ALKALINE PHOSPHATASE 90 U/L (35-104); ALT/SGPT < 9 U/L (7.0-40); AST/SGOT 10 U/L (<34); BILIRUBIN,DIRECT < 0.1 MG/DL (<0.4); BILIRUBIN,TOTAL 0.2 MG/DL (0.3-1.2); BLOOD UREA NITROGEN 85 MG/DL (9-23); CALCIUM LEVEL 7.1 MG/DL (8.3-10.6); CARBON DIOXIDE LEVEL 14 MMOL/L (20-31); CHLORIDE LEVEL 105 MMOL/L (98-107); CREATININE FOR GFR 13.94 MG/DL (0.55-1.30); GLOMERULAR FILTRATION RATE 2.3 (>32); GLUCOSE, FASTING 81 MG/DL (74-106); SODIUM LEVEL 137 MMOL/L (136-145); TOTAL PROTEIN 5.4 G/DL (5.7-8.2)
[2025-01-06 00:48] LABS: MAGNESIUM LEVEL 2.8 MG/DL (1.8-2.4)
[2025-01-06 01:13] LABS: VENOUS BASE EXCESS -13.6 (-2.0-2.0); VENOUS HCO3 12.6 MMOL/L (23.0-27.0); VENOUS O2 SATURATION 68.2 % (60.0-80.0); VENOUS PARTIAL PRESSURE CO2 30.1 mmHg (38.0-50.0); VENOUS PARTIAL PRESSURE O2 40.6 mmHg (30.0-50.0); VENOUS PH 7.238 UNITS (7.330-7.430); VENOUS STANDARD HCO3 13.3 MMOL/L; VENOUS TOTAL CO2 13.5 MMOL/L (24.0-28.0)
[2025-01-06] MEDS: NS 500 ML IV ONE (01:23)
[2025-01-06] MEDS ORDERED: ACETAMINOPHEN 325 MG TAB PO PRN (03:15)
[2025-01-06] MEDS: DEXTROSE 50% 50ML SYRINGE IV ONE (03:29)
[2025-01-06] MEDS: CALCIUM GLUCONATE 1,000 MG in DEXTROSE 5% (D5W) MINI-BAG PLU 100 ML IV ONE (03:29)
[2025-01-06] MEDS: HumuLIN R (REGULAR) INSULIN (NovoLIN R) **100U/ML** PER UNIT IV ONE (03:29)
[2025-01-06 03:46] LABS: PHOSPHORUS LEVEL 7.2 MG/DL (2.4-5.1)
[2025-01-06] MEDS: SODIUM BICARBONATE 8.4% INJ 50ML SYRINGE IV ONE (05:00)
[2025-01-06] MEDS: cefTRIAXone SOD 1 GM in DEXTROSE 5% (D5W) ADV/MINI-BAG 50 ML IV SCH (05:00)
[2025-01-06] MEDS: SODIUM BICARBONATE 150 MEQ in D5W 1,000 ML IV SCH (05:31)
[2025-01-06 06:03] LABS: IONIZED CALCIUM 3.7 MG/DL (4.5-5.3)
[2025-01-06 06:11] LABS: HEMATOCRIT 21.4 % (36.0-47.0); MEAN CORPUSCULAR HEMOGLOBIN 24.2 pg (27.0-33.0); MEAN CORPUSCULAR HGB CONC 31.3 g/dl (32.0-36.5); MEAN CORPUSCULAR VOLUME 77.3 fl (80.0-96.0); PLATELET COUNT, AUTOMATED 387 10^3/uL (150-450); RED BLOOD COUNT 2.77 10^6/uL (4.00-5.40); WHITE BLOOD COUNT 12.4 10^3/uL (4.0-10.0)
[2025-01-06 06:16] LABS: HEMOGLOBIN 6.7 g/dl (12.0-15.5)
[2025-01-06 06:38] LABS: CALCIUM LEVEL 7.2 MG/DL (8.3-10.6); CREATININE FOR GFR 13.53 MG/DL (0.55-1.30); GLOMERULAR FILTRATION RATE 2.4 (>32); MAGNESIUM LEVEL 2.6 MG/DL (1.8-2.4); PHOSPHORUS LEVEL 5.8 MG/DL (2.4-5.1)
[2025-01-06] MEDS ORDERED: MED REC IN PROGRESS XX SCH (08:05)
[2025-01-06] MEDS ORDERED: SYNT75TA PO (08:34)
[2025-01-06] MEDS ORDERED: LIOT5TAB6 PO (08:40)
[2025-01-06] MEDS ORDERED: HYDR-643 PO (08:40)
[2025-01-06] MEDS ORDERED: PRES10CA2 PO (08:40)
[2025-01-06] MEDS ORDERED: HOME MED LIST COMPLETE! XX SCH (08:40)
[2025-01-06] MEDS ORDERED: HYDR25TA87 PO (08:40)
[2025-01-06] MEDS ORDERED: APAP500T10 PO (08:40)
[2025-01-06 09:03] LABS: IRON (FE) 49 UG/DL (50-170); PERCENT SATURATION 65.3 % (13.2-45.0); TOTAL IRON BINDING CAPACITY 75 UG/DL (250-425)
[2025-01-06 09:06] LABS: FERRITIN 724.6 NG/ML (7.3-270.7); FOLATE > 24.00 NG/ML (>5.4); VITAMIN B12 LEVEL 912 PG/ML (211-911)
[2025-01-06] MEDS: DOCUSATE SODIUM 100MG CAPSULE PO SCH (09:30)
[2025-01-06] MEDS ORDERED: SODIUM CHLORIDE 0.9% 1000 ML IV PRN (09:35)
[2025-01-06] MEDS ORDERED: HEPARIN 1,000UNITS/ML 10ML VIAL (FOR RADIOLOGY & DIALYSIS ONLY) IV PRN (09:35)
[2025-01-06] MEDS: HEPARIN 1,000UNITS/ML 10ML VIAL (FOR RADIOLOGY & DIALYSIS ONLY) IV STA (11:28)
[2025-01-06] MEDS ORDERED: SODIUM CHLORIDE 0.9% INJ 10 ML SYR IV PRN (11:30)
[2025-01-06 13:29] LABS: HEPATITIS B SURFACE ANTIBODY NEGATIVE (POSITIVE)
[2025-01-06 13:40] LABS: HEPATITIS B SURFACE ANTIGEN NEGATIVE (NEGATIVE)
[2025-01-06 14:01] LABS: HEPATITIS B CORE ANTIBODY IGM NEGATIVE (NEGATIVE); HEPATITIS C VIRUS ABY INDEX 0.03 INDEX (<0.8)
[2025-01-06] MEDS: HEPARIN 1,000UNITS/ML 10ML VIAL (FOR RADIOLOGY & DIALYSIS ONLY) XX SCH (15:23)
[2025-01-06] MEDS: SODIUM CHLORIDE 0.9% INJ 10 ML SYR IV SCH (15:36)
[2025-01-06] MEDS: APIXABAN 2.5 MG TAB (ELIQUIS) PO SCH (15:37)
[2025-01-06] MEDS: LEVOTHYROXINE 75MCG TABLET (0.075MG) PO SCH (15:58)
[2025-01-06] MEDS: EZETIMIBE 10MG TABLET (ZETIA) PO SCH (16:48)
[2025-01-06] MEDS: OMEPRAZOLE 20MG CAP PO SCH (16:48)
[2025-01-06] MEDS: METOPROLOL TART 12.5 MG PER 1/2 TAB PO ONE (17:13)
[2025-01-06] MEDS: ONDANSETRON 4MG 2ML VIAL IV PRN (18:43)
[2025-01-06] MEDS: METOPROLOL TART 12.5 MG PER 1/2 TAB PO SCH (20:36)
[2025-01-06] MEDS ORDERED: CHLORASEPTIC SPRAY MT PRN (22:45)
[2025-01-06] MEDS: ACETAMINOPHEN 325 MG TAB PO ONE (22:49)
[2025-01-06] MEDS: guaiFENesin SYRUP 200MG 10ML UDC PO PRN (22:49)
[2025-01-07] VITALS (8 sets, daily range): BP systolic 133–141; BP diastolic 62–71; TEMP 97.2–99.4; O2SAT 92–99
[2025-01-07] MEDS ORDERED: SODIUM CHLORIDE 0.9% 1000 ML IV PRN (06:00)
[2025-01-07] MEDS ORDERED: HEPARIN 1,000UNITS/ML 10ML VIAL (FOR RADIOLOGY & DIALYSIS ONLY) IV PRN (06:00)
[2025-01-07 06:06] LABS: BASO % 0.4 % (0.0-1.0); EOS # 0.3 10^3/uL (0.0-0.5); EOS % 3.7 % (0.0-3.0); HEMATOCRIT 28.9 % (36.0-47.0); LYMPH # 0.7 10^3/uL (1.5-5.0); LYMPH % 7.7 % (24.0-44.0); MEAN CORPUSCULAR HEMOGLOBIN 24.7 pg (27.0-33.0); MEAN CORPUSCULAR HGB CONC 31.5 g/dl (32.0-36.5); MEAN CORPUSCULAR VOLUME 78.3 fl (80.0-96.0); MONO # 1.7 10^3/uL (0.0-0.8); MONO % 18.2 % (2.0-8.0); NEUTROPHILS # 6.4 10^3/uL (1.5-8.5); NEUTROPHILS % 69.6 % (36.0-66.0); PLATELET COUNT, AUTOMATED 347 10^3/uL (150-450); RED BLOOD COUNT 3.69 10^6/uL (4.00-5.40); WHITE BLOOD COUNT 9.3 10^3/uL (4.0-10.0)
[2025-01-07 06:11] LABS: HEMOGLOBIN 9.1 g/dl (12.0-15.5)
[2025-01-07 06:49] LABS: ALBUMIN 1.9 G/DL (3.2-5.2); CALCIUM LEVEL 6.9 MG/DL (8.3-10.6); CREATININE FOR GFR 7.34 MG/DL (0.55-1.30); GLOMERULAR FILTRATION RATE 5.1 (>32); MAGNESIUM LEVEL 2.2 MG/DL (1.8-2.4); PHOSPHORUS LEVEL 5.3 MG/DL (2.4-5.1); POTASSIUM SERUM 4.1 MMOL/L (3.5-5.1)
[2025-01-07] MEDS: HEPARIN 1,000UNITS/ML 10ML VIAL (FOR RADIOLOGY & DIALYSIS ONLY) XX SCH (10:10)
[2025-01-07] MEDS: METOPROLOL TART 25 MG TABLET PO SCH (11:53)
[2025-01-08] VITALS (16 sets, daily range): BP systolic 90–137; BP diastolic 51–76; TEMP 97.3–99.9; O2SAT 88–98
[2025-01-08 05:55] LABS: BASO % 0.4 % (0.0-1.0); EOS # 0.4 10^3/uL (0.0-0.5); EOS % 5.2 % (0.0-3.0); HEMATOCRIT 27.1 % (36.0-47.0); HEMOGLOBIN 8.3 g/dl (12.0-15.5); LYMPH # 0.6 10^3/uL (1.5-5.0); LYMPH % 8.3 % (24.0-44.0); MEAN CORPUSCULAR HEMOGLOBIN 24.6 pg (27.0-33.0); MEAN CORPUSCULAR HGB CONC 30.6 g/dl (32.0-36.5); MEAN CORPUSCULAR VOLUME 80.2 fl (80.0-96.0); MONO # 1.6 10^3/uL (0.0-0.8); MONO % 22.9 % (2.0-8.0); NEUTROPHILS # 4.5 10^3/uL (1.5-8.5); NEUTROPHILS % 62.6 % (36.0-66.0); PLATELET COUNT, AUTOMATED 306 10^3/uL (150-450); RED BLOOD COUNT 3.38 10^6/uL (4.00-5.40); WHITE BLOOD COUNT 7.1 10^3/uL (4.0-10.0)
[2025-01-08] MEDS ORDERED: SODIUM CHLORIDE 0.9% 1000 ML IV PRN (06:00)
[2025-01-08] MEDS ORDERED: HEPARIN 1,000UNITS/ML 10ML VIAL (FOR RADIOLOGY & DIALYSIS ONLY) IV PRN (06:00)
[2025-01-08 06:25] LABS: ALBUMIN 1.8 G/DL (3.2-5.2); CALCIUM LEVEL 6.7 MG/DL (8.3-10.6); CREATININE FOR GFR 4.68 MG/DL (0.55-1.30); GLOMERULAR FILTRATION RATE 8.7 (>32); MAGNESIUM LEVEL 1.8 MG/DL (1.8-2.4); POTASSIUM SERUM 3.5 MMOL/L (3.5-5.1)
[2025-01-08] MEDS ORDERED: METOPROLOL 5 MG/5 ML VIAL IV STA (09:21)
[2025-01-08] MEDS: METOPROLOL 5 MG/5 ML VIAL IV SCH (09:31)
[2025-01-08] MEDS: AMIODARONE HCL 150 MG in IV 1 EA IV STA (10:34)
[2025-01-08 10:58] LABS: FREE T4 0.93 NG/DL (0.89-1.76); THYROID STIMULATING HORMONE 0.215 uIU/ML (0.55-4.78)
[2025-01-08] MEDS: AMIODARONE HCL 360 MG in IV 1 EA IV SCH ×2 (11:06→17:40)
[2025-01-09] VITALS (10 sets, daily range): BP systolic 105–122; BP diastolic 57–60; TEMP 97–98.3; O2SAT 94–100
[2025-01-09 05:08] LABS: BASO % 0.3 % (0.0-1.0); EOS # 0.5 10^3/uL (0.0-0.5); EOS % 6.4 % (0.0-3.0); HEMOGLOBIN 7.9 g/dl (12.0-15.5); LYMPH # 0.8 10^3/uL (1.5-5.0); LYMPH % 10.5 % (24.0-44.0); MEAN CORPUSCULAR HEMOGLOBIN 24.5 pg (27.0-33.0); MEAN CORPUSCULAR HGB CONC 30.4 g/dl (32.0-36.5); MEAN CORPUSCULAR VOLUME 80.5 fl (80.0-96.0); MONO # 1.4 10^3/uL (0.0-0.8); MONO % 18.6 % (2.0-8.0); NEUTROPHILS # 4.9 10^3/uL (1.5-8.5); NEUTROPHILS % 63.4 % (36.0-66.0); PLATELET COUNT, AUTOMATED 306 10^3/uL (150-450); RED BLOOD COUNT 3.23 10^6/uL (4.00-5.40); WHITE BLOOD COUNT 7.7 10^3/uL (4.0-10.0)
[2025-01-09 05:32] LABS: ALBUMIN 1.8 G/DL (3.2-5.2); CALCIUM LEVEL 6.2 MG/DL (8.3-10.6); CREATININE FOR GFR 5.55 MG/DL (0.55-1.30); GLOMERULAR FILTRATION RATE 7.1 (>32); MAGNESIUM LEVEL 1.8 MG/DL (1.8-2.4); PHOSPHORUS LEVEL 3.6 MG/DL (2.4-5.1); POTASSIUM SERUM 3.5 MMOL/L (3.5-5.1)
[2025-01-09] MEDS: AMIODARONE 200 MG TAB (PACERONE) PO SCH (11:28)
[2025-01-09] MEDS ORDERED: CALCIUM CARBONATE 500 MG CHEW U/D PO SCH (12:30)
[2025-01-09] MEDS: CALCIUM CARBONATE 500 MG CHEW U/D PO SCH (16:12)
[2025-01-09] MEDS: METOPROLOL TART 25 MG TABLET PO SCH (20:46)
[2025-01-10] VITALS (26 sets, daily range): BP systolic 102–123; BP diastolic 51–68; TEMP 97–98.6; O2SAT 85–98
[2025-01-10 04:28] LABS: BASO % 0.4 % (0.0-1.0); EOS # 0.5 10^3/uL (0.0-0.5); EOS % 6.3 % (0.0-3.0); HEMATOCRIT 25.3 % (36.0-47.0); HEMOGLOBIN 7.9 g/dl (12.0-15.5); LYMPH # 0.7 10^3/uL (1.5-5.0); LYMPH % 8.2 % (24.0-44.0); MEAN CORPUSCULAR HEMOGLOBIN 24.8 pg (27.0-33.0); MEAN CORPUSCULAR HGB CONC 31.2 g/dl (32.0-36.5); MEAN CORPUSCULAR VOLUME 79.3 fl (80.0-96.0); MONO # 1.4 10^3/uL (0.0-0.8); MONO % 16.1 % (2.0-8.0); NEUTROPHILS # 5.9 10^3/uL (1.5-8.5); NEUTROPHILS % 68.2 % (36.0-66.0); PLATELET COUNT, AUTOMATED 300 10^3/uL (150-450); RED BLOOD COUNT 3.19 10^6/uL (4.00-5.40); WHITE BLOOD COUNT 8.6 10^3/uL (4.0-10.0)
[2025-01-10 04:53] LABS: ALBUMIN 1.7 G/DL (3.2-5.2); CALCIUM LEVEL 6.1 MG/DL (8.3-10.6); CREATININE FOR GFR 6.86 MG/DL (0.55-1.30); GLOMERULAR FILTRATION RATE 5.5 (>32); MAGNESIUM LEVEL 1.9 MG/DL (1.8-2.4); PHOSPHORUS LEVEL 3.7 MG/DL (2.4-5.1); POTASSIUM SERUM 3.6 MMOL/L (3.5-5.1)
[2025-01-11] VITALS (17 sets, daily range): BP systolic 75–122; BP diastolic 45–72; TEMP 96.3–97.8; O2SAT 88–93
[2025-01-11 05:18] LABS: BASO % 0.4 % (0.0-1.0); EOS # 0.2 10^3/uL (0.0-0.5); EOS % 3.1 % (0.0-3.0); HEMATOCRIT 27.2 % (36.0-47.0); HEMOGLOBIN 8.4 g/dl (12.0-15.5); LYMPH # 0.7 10^3/uL (1.5-5.0); LYMPH % 9.8 % (24.0-44.0); MEAN CORPUSCULAR HEMOGLOBIN 24.2 pg (27.0-33.0); MEAN CORPUSCULAR HGB CONC 30.9 g/dl (32.0-36.5); MEAN CORPUSCULAR VOLUME 78.4 fl (80.0-96.0); MONO # 0.9 10^3/uL (0.0-0.8); MONO % 13.3 % (2.0-8.0); NEUTROPHILS # 5.1 10^3/uL (1.5-8.5); NEUTROPHILS % 72.6 % (36.0-66.0); PLATELET COUNT, AUTOMATED 343 10^3/uL (150-450); RED BLOOD COUNT 3.47 10^6/uL (4.00-5.40); WHITE BLOOD COUNT 7.1 10^3/uL (4.0-10.0)
[2025-01-11 05:41] LABS: ALBUMIN 1.6 G/DL (3.2-5.2); CREATININE FOR GFR 7.64 MG/DL (0.55-1.30); GLOMERULAR FILTRATION RATE 4.8 (>32); PHOSPHORUS LEVEL 4.1 MG/DL (2.4-5.1); POTASSIUM SERUM 3.5 MMOL/L (3.5-5.1)
[2025-01-11 05:43] LABS: FREE T3 1.4 PG/ML (2.3-4.2); FREE T4 0.79 NG/DL (0.89-1.76)
[2025-01-11 05:44] LABS: THYROID STIMULATING HORMONE 1.363 uIU/ML (0.55-4.78)
[2025-01-11] MEDS ORDERED: SODIUM CHLORIDE 0.9% 1000 ML IV PRN (07:20)
[2025-01-11] MEDS ORDERED: HEPARIN 1,000UNITS/ML 10ML VIAL (FOR RADIOLOGY & DIALYSIS ONLY) IV PRN (07:20)
[2025-01-11] MEDS: METOPROLOL 5 MG/5 ML VIAL IV STA (08:12)
[2025-01-11] MEDS ORDERED: AMIODARONE HCL 360 MG/200 ML PREMIXED BAG (NEXTERONE) As Ordered ONE (08:16)
[2025-01-11] MEDS ORDERED: AMIODARONE HCL 150 MG/100 ML PREMIXED BAG (NEXTERONE) As Ordered ONE (08:19)
[2025-01-11] MEDS: AMIODARONE HCL 150 MG in IV 1 EA IV ONE (08:20)
[2025-01-11] MEDS: POTASSIUM CHLORIDE 10MEQ SR TABLET PO ONE (10:33)
[2025-01-11] MEDS: LIDOCAINE 1% MDV 20ML VIAL SC SCH (13:44)
[2025-01-11] MEDS: HEPARIN 1,000UNITS/ML 10ML VIAL (FOR RADIOLOGY & DIALYSIS ONLY) IV PRN (13:47)
[2025-01-11] MEDS: DARBEPOETIN 100MCG/0.5ML *DIALYSIS* SYRINGE IV SCH (14:44)
[2025-01-11] MEDS: HEPARIN 1,000UNITS/ML 10ML VIAL (FOR RADIOLOGY & DIALYSIS ONLY) XX SCH (14:45)
[2025-01-11] MEDS: IRON SUCROSE 100MG/5ML VIAL IV SCH (15:17)
[2025-01-11] MEDS: AMIODARONE HCL 360 MG in IV 1 EA IV SCH (18:35)
[2025-01-11 19:34] LABS: CALCIUM LEVEL 8.5 MG/DL (8.3-10.6); CREATININE FOR GFR 2.66 MG/DL (0.55-1.30); GLOMERULAR FILTRATION RATE 17.1 (>32); POTASSIUM SERUM 4.5 MMOL/L (3.5-5.1)
[2025-01-11] MEDS ORDERED: AMIODARONE 200 MG TAB (PACERONE) PO SCH (21:00)
[2025-01-11] MEDS: AMIODARONE 200 MG TAB (PACERONE) PO SCH (21:55)
[2025-01-12 00:13] VITALS: BP 109/54; O2SAT 90
[2025-01-12 05:02] VITALS: BP 121/60; TEMP 97.9; O2SAT 97
[2025-01-12 06:13] LABS: BASO # 0.1 10^3/uL (0.0-0.2); BASO % 0.8 % (0.0-1.0); EOS # 0.2 10^3/uL (0.0-0.5); EOS % 3.1 % (0.0-3.0); HEMATOCRIT 27.1 % (36.0-47.0); HEMOGLOBIN 8.2 g/dl (12.0-15.5); LYMPH # 0.7 10^3/uL (1.5-5.0); LYMPH % 8.5 % (24.0-44.0); MEAN CORPUSCULAR HEMOGLOBIN 24.1 pg (27.0-33.0); MEAN CORPUSCULAR HGB CONC 30.3 g/dl (32.0-36.5); MEAN CORPUSCULAR VOLUME 79.7 fl (80.0-96.0); MONO # 1.2 10^3/uL (0.0-0.8); MONO % 15.8 % (2.0-8.0); NEUTROPHILS # 5.4 10^3/uL (1.5-8.5); NEUTROPHILS % 70.6 % (36.0-66.0); PLATELET COUNT, AUTOMATED 329 10^3/uL (150-450); WHITE BLOOD COUNT 7.7 10^3/uL (4.0-10.0)
[2025-01-12 06:36] LABS: ALBUMIN 1.6 G/DL (3.2-5.2); CALCIUM LEVEL 7.5 MG/DL (8.3-10.6); CREATININE FOR GFR 3.71 MG/DL (0.55-1.30); GLOMERULAR FILTRATION RATE 11.5 (>32); MAGNESIUM LEVEL 1.9 MG/DL (1.8-2.4); PHOSPHORUS LEVEL 2.7 MG/DL (2.4-5.1)
[2025-01-12 08:00] VITALS: BP 105/55; TEMP 98.5; O2SAT 92
[2025-01-12 10:28] VITALS: BP 112/59; O2SAT 93
[2025-01-12 12:08] VITALS: BP 121/59; TEMP 98.2; O2SAT 95
[2025-01-12] MEDS ORDERED: SYNT25TA PO (14:10)
[2025-01-12] MEDS ORDERED: AMIO200T49 PO ×2 (14:10→14:30)
[2025-01-12] MEDS ORDERED: LEVO50TA5 PO (14:30)
[2025-01-12] MEDS ORDERED: AMIODARONE 200 MG TAB (PACERONE) PO ONE (15:30)
== END 2025-01-12 15:42 | disposition home health service (06) | DRG 291 ==
LOC: M ED 17:35 → M ED INP 01-06 03:14 → M PCU 01-06 09:39
PROVIDERS: ADMIT Family Medicine; ATTEND Student in an Organized Health Care Education/Training Program
PROC: 05HY33Z Insertion of Infusion Device into Upper Vein, Percutaneous Approach (ICD-10-PCS; principal; 2025-01-06)
PROC: 30233N1 Transfusion of Nonautologous Red Blood Cells into Peripheral Vein, Percutaneous Approach (ICD-10-PCS; 2025-01-06)
PROC: 5A1D70Z Performance of Urinary Filtration, Intermittent, Less than 6 Hours Per Day (ICD-10-PCS; 2025-01-06)
PROC: 02HV33Z Insertion of Infusion Device into Superior Vena Cava, Percutaneous Approach (ICD-10-PCS; 2025-01-11)
PROC: 0JH63XZ Insertion of Tunneled Vascular Access Device into Chest Subcutaneous Tissue and Fascia, Percutaneous Approach (ICD-10-PCS; 2025-01-11)
DX: I13.2 Hypertensive heart and chronic kidney disease with heart failure and with stage 5 chronic kidney disease, or end stage renal disease (principal); N18.6 End stage renal disease; N39.0 Urinary tract infection, site not specified; E87.20 Acidosis, unspecified; I48.92 Unspecified atrial flutter; I47.10 Supraventricular tachycardia, unspecified; N17.9 Acute kidney failure, unspecified; N13.30 Unspecified hydronephrosis; I50.32 Chronic diastolic (congestive) heart failure; I42.9 Cardiomyopathy, unspecified; J44.9 Chronic obstructive pulmonary disease, unspecified; E87.5 Hyperkalemia; D63.1 Anemia in chronic kidney disease; K21.9 Gastro-esophageal reflux disease without esophagitis; E78.5 Hyperlipidemia, unspecified; E83.51 Hypocalcemia; I48.0 Paroxysmal atrial fibrillation; Z79.01 Long term (current) use of anticoagulants; F41.9 Anxiety disorder, unspecified; E03.9 Hypothyroidism, unspecified; D50.9 Iron deficiency anemia, unspecified; M10.9 Gout, unspecified; J43.9 Emphysema, unspecified; R13.10 Dysphagia, unspecified; Z98.41 Cataract extraction status, right eye; Z98.42 Cataract extraction status, left eye; Z79.899 Other long term (current) drug therapy; Z79.890 Hormone replacement therapy; Z88.8 Allergy status to other drugs, medicaments and biological substances; R91.1 Solitary pulmonary nodule; K44.9 Diaphragmatic hernia without obstruction or gangrene

== ENCOUNTER → 2025-03-26 | Outpatient (CLI) | payer MEDICARE, OTHER ==
[~2025-03-26] MED LIST changes: -AMIO200T49 PO; +AMIO200T54 PO; +APAP500T10 PO; +HYDR-643 PO; +HYDR25TA87 PO; +LEVO50TA5 PO; +LIOT5TAB6 PO; +PRES10CA2 PO; +SYNT25TA PO; +SYNT75TA PO
== END ==
LOC: M RAD 06:55
PROVIDERS: ATTEND Physician Assistant
DX: R91.8 Other nonspecific abnormal finding of lung field (principal); J43.9 Emphysema, unspecified; J98.4 Other disorders of lung; I25.10 Atherosclerotic heart disease of native coronary artery without angina pectoris

== ENCOUNTER → 2025-04-20 | Outpatient (CLI) | payer MEDICARE, OTHER | LOC: M PLARAD 12:30 | PROVIDERS: ATTEND Physician Assistant | DX: R91.1 Solitary pulmonary nodule (principal) | CPT/HCPCS: 78815; A9552 ==

== ENCOUNTER → 2025-05-25 | Outpatient (CLI) | payer MEDICARE, OTHER ==
[~2025-05-25] MED LIST changes: +DOXY-440 PO; -FOLI0.8T3 PO; +FOLI800T5 PO
[2025-05-25 11:09] LABS: PLATELET COUNT, AUTOMATED 215 10^3/uL (150-450)
[2025-05-25 11:21] LABS: INR 0.94
== END ==
LOC: M LAB 10:04
PROVIDERS: ATTEND Registered Nurse School
DX: R91.8 Other nonspecific abnormal finding of lung field (principal); Z79.01 Long term (current) use of anticoagulants

== ENCOUNTER → 2025-05-27 | Outpatient (CLI) | payer MEDICARE, OTHER ==
[2025-05-27 09:30] VITALS: TEMP 97.8
[2025-05-27] MEDS: LIDOCAINE 1% MDV 20 ML VIAL SC STA (11:14)
[2025-05-27] MEDS: ACETAMINOPHEN 325 MG TAB PO PRN (11:14)
[2025-05-27 12:00] VITALS: BP 118/57; O2SAT 98
== END ==
LOC: M IRPRO 09:19
PROVIDERS: ATTEND Physician Assistant
DX: C34.32 Malignant neoplasm of lower lobe, left bronchus or lung (principal); R91.1 Solitary pulmonary nodule; J95.811 Postprocedural pneumothorax
CPT/HCPCS: 32408; 88305; G0463

== ENCOUNTER → 2025-05-27 | Outpatient (CLI) | payer MEDICARE, OTHER | LOC: M ONCR 12:52 | PROVIDERS: ATTEND General Practice | DX: C34.32 Malignant neoplasm of lower lobe, left bronchus or lung (principal); C34.31 Malignant neoplasm of lower lobe, right bronchus or lung; N18.6 End stage renal disease; Z90.710 Acquired absence of both cervix and uterus; Z80.41 Family history of malignant neoplasm of ovary; Z87.891 Personal history of nicotine dependence; Z88.8 Allergy status to other drugs, medicaments and biological substances; Z79.01 Long term (current) use of anticoagulants; Z79.899 Other long term (current) drug therapy ==

== ENCOUNTER 2025-06-08 14:00 | Outpatient (RCR) | payer MEDICARE, OTHER | END 2025-06-15 | LOC: M ONCR 14:00 | PROVIDERS: ATTEND General Practice | DX: Z51.0 Encounter for antineoplastic radiation therapy (principal); C34.32 Malignant neoplasm of lower lobe, left bronchus or lung ==

== ENCOUNTER 2025-06-30 14:05 | Outpatient (RCR) | payer MEDICARE, OTHER | END 2025-07-16 | LOC: M ONCR 14:05 | PROVIDERS: ATTEND General Practice | DX: Z51.0 Encounter for antineoplastic radiation therapy (principal); C34.32 Malignant neoplasm of lower lobe, left bronchus or lung ==

== ENCOUNTER 2025-08-19 06:55 | Inpatient (IN) | payer MEDICARE, OTHER ==
[~2025-08-19] VITALS: Ht 152.4 cm; Wt 62.7 kg
[2025-08-19 08:02] LABS: BASO # 0.1 10^3/uL (0.0-0.2); BASO % 0.7 % (0.0-1.0); EOS # 0.0 10^3/uL (0.0-0.5); EOS % 0.6 % (0.0-3.0); LYMPH # 0.6 10^3/uL (1.5-5.0); LYMPH % 7.7 % (24.0-44.0); MONO # 0.8 10^3/uL (0.0-0.8); MONO % 11.7 % (2.0-8.0); NEUTROPHILS # 5.6 10^3/uL (1.5-8.5); NEUTROPHILS % 78.9 % (36.0-66.0); PLATELET COUNT, AUTOMATED 297 10^3/uL (150-450)
[2025-08-19 08:42] LABS: ALT/SGPT 12.0 U/L (7.0-40); AST/SGOT 13.0 U/L (<34); CALCIUM LEVEL 7.6 MG/DL (8.3-10.6); CARBON DIOXIDE LEVEL 21.0 MMOL/L (20-31); CHLORIDE LEVEL 98.0 MMOL/L (98-107); CREATININE FOR GFR 7.88 MG/DL (0.55-1.30); GLOMERULAR FILTRATION RATE 4.6 (>32); MAGNESIUM LEVEL 2.5 MG/DL (1.8-2.4); PHOSPHORUS LEVEL 5.8 MG/DL (2.4-5.1); POTASSIUM SERUM 8.5 MMOL/L (3.5-5.1); SODIUM LEVEL 133.0 MMOL/L (136-145)
[2025-08-19] MEDS: PATIROMER SORBITEX CALCIUM 8.4GM POWDER PACKET PO ONE (09:04)
[2025-08-19] MEDS: DEXTROSE 50% 50 ML SYRINGE IV ONE (09:04)
[2025-08-19] MEDS: HumuLIN R (REGULAR) INSULIN (NovoLIN R) **100 U/ML** PER UNIT IV ONE (09:04)
[2025-08-19] MEDS: CALCIUM CHLORIDE 10% 1 GM/10 ML SYR IV ONE (09:05)
[2025-08-19] MEDS: SODIUM BICARBONATE 8.4% INJ 50ML SYRINGE IV ONE (09:11)
[2025-08-19] MEDS ORDERED: LEVO88TA3 PO (10:27)
[2025-08-19] MEDS ORDERED: AMIO200T54 PO (10:37)
[2025-08-19] MEDS ORDERED: ROPI5TAB19 PO (10:37)
[2025-08-19] MEDS ORDERED: SEVE800T3 PO (10:37)
[2025-08-19] MEDS ORDERED: FERR325T81 PO (10:43)
[2025-08-19] MEDS ORDERED: CALC1CAP31 PO (10:43)
[2025-08-19] MEDS ORDERED: HOME MED LIST COMPLETE! XX SCH ×2 (10:45→10:55)
[2025-08-19] MEDS ORDERED: ONDANSETRON 4MG TAB PO PRN (13:10)
[2025-08-19 16:10] VITALS: BP 139/58; TEMP 99.1; O2SAT 92
[2025-08-19] MEDS: OMEPRAZOLE 20MG CAP PO SCH (16:24)
[2025-08-19] MEDS: LEVOTHYROXINE 88 MCG TABLET (0.088 MG) PO SCH (16:24)
[2025-08-19] MEDS: ACETAMINOPHEN 500 MG TAB PO SCH (16:24)
[2025-08-19] MEDS: MAGNESIUM GLUCONATE 500 MG TAB PO SCH (16:25)
[2025-08-19] MEDS: AMIODARONE 200 MG TAB PO SCH (16:25)
[2025-08-19] MEDS: EZETIMIBE 10 MG TABLET PO SCH (16:25)
[2025-08-19] MEDS: METOPROLOL TART 25 MG TABLET PO SCH (16:29)
[2025-08-19 17:46] LABS: CALCIUM LEVEL 7.8 MG/DL (8.3-10.6); CARBON DIOXIDE LEVEL 25.0 MMOL/L (20-31); CHLORIDE LEVEL 100.0 MMOL/L (98-107); CREATININE FOR GFR 2.23 MG/DL (0.55-1.30); GLOMERULAR FILTRATION RATE 21.1 (>32); POTASSIUM SERUM 4.0 MMOL/L (3.5-5.1); SODIUM LEVEL 142.0 MMOL/L (136-145)
[2025-08-19 20:01] VITALS: BP 96/52; TEMP 98.1; O2SAT 95
[2025-08-19] MEDS: rOPINIRole 0.25 MG TAB PO SCH (21:57)
[2025-08-19] MEDS: SEVELAMER *CARBONate* 800 MG TAB PO SCH (21:58)
[2025-08-19] MEDS: APIXABAN 2.5 MG TAB PO SCH (21:58)
[2025-08-19] MEDS: CETIRIZINE 10 MG TAB PO SCH (21:59)
[2025-08-19 23:35] VITALS: BP 120/51; TEMP 98.7; O2SAT 95
[2025-08-20] VITALS (7 sets, daily range): BP systolic 110–140; BP diastolic 56–79; TEMP 97.3–98.6; O2SAT 93–97
[2025-08-20] MEDS ORDERED: IPRATROPIUM 0.5 MG/ALBUTEROL 2.5 MG INH SOL UD 3 ML NEB PRN (00:40)
[2025-08-20 05:35] LABS: BASO # 0.1 10^3/uL (0.0-0.2); BASO % 1.4 % (0.0-1.0); EOS # 0.1 10^3/uL (0.0-0.5); EOS % 2.5 % (0.0-3.0); LYMPH # 0.7 10^3/uL (1.5-5.0); LYMPH % 14.7 % (24.0-44.0); MONO # 0.7 10^3/uL (0.0-0.8); MONO % 16.8 % (2.0-8.0); NEUTROPHILS # 2.8 10^3/uL (1.5-8.5); NEUTROPHILS % 64.1 % (36.0-66.0); PLATELET COUNT, AUTOMATED 313 10^3/uL (150-450)
[2025-08-20 06:00] LABS: CALCIUM LEVEL 7.5 MG/DL (8.3-10.6); CARBON DIOXIDE LEVEL 29.0 MMOL/L (20-31); CHLORIDE LEVEL 100.0 MMOL/L (98-107); CREATININE FOR GFR 3.47 MG/DL (0.55-1.30); GLOMERULAR FILTRATION RATE 12.4 (>32); POTASSIUM SERUM 4.9 MMOL/L (3.5-5.1); SODIUM LEVEL 140.0 MMOL/L (136-145)
[2025-08-20] MEDS ORDERED: HEPARIN 1,000 UNITS/ML 10 ML VIAL (FOR RADIOLOGY & DIALYSIS ONLY) XX SCH ×2 (06:00)
[2025-08-20] MEDS ORDERED: LIDOCAINE 1% SDV 5 ML VIAL SC PRN (06:00)
[2025-08-20] MEDS ORDERED: HEPARIN 1,000 UNITS/ML 10 ML VIAL (FOR RADIOLOGY & DIALYSIS ONLY) IV PRN ×2 (06:00)
[2025-08-20] MEDS ORDERED: SODIUM CHLORIDE 0.9% 1000 ML IV PRN ×2 (06:00)
[2025-08-20] MEDS: CALCITRIOL 0.25 MCG CAP (S0169) PO SCH (07:22)
[2025-08-20] MEDS: FERROUS SULFATE 325 MG TAB PO SCH (12:03)
[2025-08-20] MEDS ORDERED: GLUCOSE 4 GM CHEW PO PRN (12:50)
[2025-08-20] MEDS ORDERED: GLUCAGON INJ 1 MG VIAL SC PRN (12:50)
[2025-08-20] MEDS ORDERED: DEXTROSE 50% 50 ML SYRINGE IV PRN (12:50)
[2025-08-21 03:37] VITALS: BP 127/62; TEMP 98; O2SAT 95
[2025-08-21 05:52] LABS: BASO # 0.1 10^3/uL (0.0-0.2); BASO % 1.2 % (0.0-1.0); EOS # 0.1 10^3/uL (0.0-0.5); EOS % 3.4 % (0.0-3.0); LYMPH # 0.7 10^3/uL (1.5-5.0); LYMPH % 16.1 % (24.0-44.0); MONO # 0.9 10^3/uL (0.0-0.8); MONO % 21.2 % (2.0-8.0); NEUTROPHILS # 2.4 10^3/uL (1.5-8.5); NEUTROPHILS % 57.4 % (36.0-66.0); PLATELET COUNT, AUTOMATED 301 10^3/uL (150-450)
[2025-08-21] MEDS ORDERED: HEPARIN 1,000 UNITS/ML 10 ML VIAL (FOR RADIOLOGY & DIALYSIS ONLY) XX SCH (06:00)
[2025-08-21] MEDS ORDERED: LIDOCAINE 1% SDV 5 ML VIAL SC PRN (06:00)
[2025-08-21] MEDS ORDERED: SODIUM CHLORIDE 0.9% 1000 ML IV PRN (06:00)
[2025-08-21 06:14] LABS: CALCIUM LEVEL 7.8 MG/DL (8.3-10.6); CARBON DIOXIDE LEVEL 30.0 MMOL/L (20-31); CHLORIDE LEVEL 98.0 MMOL/L (98-107); CREATININE FOR GFR 2.75 MG/DL (0.55-1.30); GLOMERULAR FILTRATION RATE 16.4 (>32); POTASSIUM SERUM 4.0 MMOL/L (3.5-5.1); SODIUM LEVEL 138.0 MMOL/L (136-145)
[2025-08-21 07:36] VITALS: BP 125/61; TEMP 98.3; O2SAT 98
[2025-08-21] MEDS ORDERED: METO1TAB87 PO (10:07)
[2025-08-21] MEDS: HEPARIN 1,000 UNITS/ML 10 ML VIAL (FOR RADIOLOGY & DIALYSIS ONLY) IV PRN (11:39)
[2025-08-21 13:33] VITALS: BP 125/61
== END 2025-08-21 15:51 | disposition home or self-care (01) | DRG 640 ==
LOC: EDBD 06:55 → M ED 06:55 → M ED INP 09:45 → M PCU 16:10
PROVIDERS: ADMIT Internal Medicine; ATTEND Internal Medicine
PROC: 5A1D70Z Performance of Urinary Filtration, Intermittent, Less than 6 Hours Per Day (ICD-10-PCS; principal; 2025-08-19)
DX: E87.5 Hyperkalemia (principal); N18.6 End stage renal disease; J96.11 Chronic respiratory failure with hypoxia; I12.0 Hypertensive chronic kidney disease with stage 5 chronic kidney disease or end stage renal disease; Z66 Do not resuscitate; Z99.2 Dependence on renal dialysis; I48.91 Unspecified atrial fibrillation; Z99.81 Dependence on supplemental oxygen; K21.9 Gastro-esophageal reflux disease without esophagitis; E78.5 Hyperlipidemia, unspecified; G25.81 Restless legs syndrome; D50.9 Iron deficiency anemia, unspecified; M91.0 Juvenile osteochondrosis of pelvis; E03.9 Hypothyroidism, unspecified; Z79.01 Long term (current) use of anticoagulants; Z79.890 Hormone replacement therapy; Z79.899 Other long term (current) drug therapy; Z88.8 Allergy status to other drugs, medicaments and biological substances; Z88.6 Allergy status to analgesic agent; J44.9 Chronic obstructive pulmonary disease, unspecified; M10.9 Gout, unspecified; Z98.41 Cataract extraction status, right eye; Z98.42 Cataract extraction status, left eye; Z90.79 Acquired absence of other genital organ(s)